=== PATIENT | male | born 1945 | race Caucasian/White ===

== ENCOUNTER → 2017-01-28 | Outpatient (CLI) | payer BC, MEDICARE ==
[~2017-01-28] MED LIST: BARIUM SUSPENSION 2.1% (VANILLA SILQ) 450 ML PO ONE; CATHETER FLUSH 10 ML SYR IV PRN; IOHEXOL 350 MG/ML 100 ML (OMNIPAQUE 350) VIAL IV ONE; NS 100 ML (IVPB) BAG IV ONE
[2017-01-28 10:26] LABS: BLOOD UREA NITROGEN 16 MG/DL (7-18); BUN/CREATININE RATIO 16; CREATININE SERUM 1.01 MG/DL (0.60-1.30); GFR ESTIMATED > 60
--- NOTE | 2017-01-28 11:55 | Diagnostic Imaging Report ---
PROCEDURE: CT abdomen and pelvis with contrast. TECHNIQUE: Multiple contiguous axial images were obtained through the abdomen and pelvis after administration of intravenous contrast. INDICATION: Prostate cancer. There are no prior studies available for comparison. FINDINGS: The prostate gland is enlarged measuring 5.2 x 5.2 CM (normal 5 CM or less). The gland does indent the floor of the bladder, but there is no clear invasion of the bladder. The bladder itself is grossly unremarkable. The seminal vesicles on the right do seem prominent. The left seminal vesicle is not nearly as large as the right seminal vesicle. The possibility that there is involvement of the seminal vesicle on the right by neoplasm should be considered. There is no pelvic mass or adenopathy identified. There are numerous surgical sutures along the inguinal canal on the left and a few surgical sutures along the inguinal canal on the right. There is no sign of herniation of bowel into the inguinal canals. The appendix was not particularly well image but there are no indirect signs of acute appendicitis. On the initial postcontrast series, there is a 1.4 CM area of enhancement in the dome of the right lobe of liver. This finding does not persist on the delayed series and I suspect that this is a benign process such as a hemangioma. Even so, I would recommend that ultrasound be performed to better evaluate this finding. Liver is otherwise unremarkable although the superior most portion of the dome of the liver was not included on the study. The spleen, pancreas, adrenals, gallbladder, kidneys, aorta and inferior vena cava show no sign of an acute abnormality. The stomach is filled with oral contrast and difficult to assess. The lung bases are clear. The bone window show no sign of fracture or destructive lesion. IMPRESSION: 1. The prostate gland is enlarged. The gland indents the floor of the bladder, but does not clearly invade the bladder. The seminal vesicle on the right however is prominent and larger than the seminal vesicle on the left. The possibility that there is involvement of the seminal vesicle on the right by neoplasm should be considered. There is no other evidence for neoplasm and there is no acute abnormality of the abdomen or pelvis. 2. The area of enhancement in the right lobe of liver is most likely due to a small hemangioma. Ultrasound would be recommended for further evaluation. Dictated by: Dictated on workstation # [id number]
--- NOTE | 2017-01-28 14:23 | Diagnostic Imaging Report ---
INDICATION: Prostate cancer with right hip and foot pain. TECHNIQUE: After intravenous administration of 26.4 mCi technetium-99m MDP, whole-body anterior and posterior scintigraphic images are obtained. Coned images were obtained in the lateral projection over the head, neck, and thorax. FINDINGS: There is normal distribution of activity throughout the visualized axial and appendicular skeleton. There is no area of abnormal increased or decreased uptake. There is activity excreted from both kidneys with accumulation in the bladder. Degenerative type uptake is noted in the right foot. IMPRESSION: No scintigraphic evidence of osseous metastatic disease. Dictated by: Dictated on workstation # [id number]
== END ==
LOC: CARD 09:56
PROVIDERS: ATTEND Urology
DX: C61 Malignant neoplasm of prostate (principal)
CPT/HCPCS: 36415; 74177; 78306; 82565; 84520

== ENCOUNTER 2017-02-12 13:54 | Outpatient (RCR) | payer BC, MEDICARE | END 2017-03-16 | disposition home or self-care (01) | LOC: ONC 13:54 | PROVIDERS: ATTEND Radiology Radiation Oncology | DX: C61 Malignant neoplasm of prostate (principal) | CPT/HCPCS: 76873; 99215 ==

== ENCOUNTER 2017-02-21 20:49 | Emergency (ER) | payer BC, MEDICARE ==
[~2017-02-21] VITALS: Ht 177.8 cm; Wt 96.2 kg
[2017-02-21] MEDS ORDERED: TETANUS,DIPTH,PERTUSS P/F (BOOSTRIX) 0.5 ML VIAL IM STA (22:06)
--- NOTE | 2017-02-21 22:12 | ED Integumentary General ---
General Chief Complaint: Laceration Stated Complaint: HEAD INJ Nursing Triage Note: PT STATES HE WAS AT HOME AND RAN INTO A DOOR AT APPROX. 1730 TODAY. PT HAS A LACERATION ON HIS LEFT EYEBROW. 2 TYLENOL WERE TAKEN AT 1830. NO LOC NOTED. PT ONLY COMPLAINS OF A 2/10 REYES AT THIS TIME. History of Present Illness Time seen by provider: 21:40 Initial Comments Evaluation for laceration above left eyebrow. Agent states he was pulling a door open when it hit his foot and then he ran into the door. He denies any loss of consciousness and he is not taking any blood thinners. He is undergoing treatment for prostate cancer with Dr. Herman Timing/Duration: just prior to arrival Location: face Associated Symptoms: denies symptoms Allergies and Home Medications Allergies Coded Allergies: No Known Drug Allergies (Unverified , 02/21/17) Constitutional: no symptoms reported, see HPI Skin: see HPI, other (laceration above left eyebrow) Psychiatric/Neurological: No Symptoms Reported, See HPI Past Gfukaqn-Bhebtm-Opzoim Hx Patient Social History Alcohol Use: Denies Use Recreational Drug Use: No Smoking Status: Never a Smoker 2nd Hand Smoke Exposure: No Recent Foreign Travel: No Contact w/Someone Who Travel: No Recent Infectious Disease Expo: No Recent Hopitalizations: No Physical Abuse: No Sexual Abuse: No Immunizations Up To Date Tetanus Booster (TDap): More than 5yrs Seasonal Allergies Seasonal Allergies: No Surgeries History of Surgeries: Yes (HERNIA REPAIR) Respiratory History of Respiratory Disorde: No Cardiovascular History of Cardiac Disorders: Yes Cardiac Disorders: Hypertension Neurological History of Neurological Disord: No Genitourinary History of Genitourinary Disor: No Gastrointestinal History of Gastrointestinal Di: No Musculoskeletal History of Musculoskeletal Dis: No Endocrine History of Endocrine Disorders: No HEENT History of HEENT Disorders: No Cancer History of Cancer: Yes Cancer: Prostate Psychosocial History of Psychiatric Problem: No Suicide Risk Score: 0 Integumentary History of Skin or Integumenta: No Blood Transfusions History of Blood Disorders: No Reviewed Nursing Assessment Reviewed/Agree w Nursing PMH: Yes Physical Exam Vital Signs Vital Sign - Last 12Hours 02/21/17 21:03 Temp 97.0 Pulse 75 Resp 20 B/P (MAP) 136/77 Pulse Ox 96 O2 Delivery Room Air Capillary Refill : Less Than 3 Seconds General Appearance: WD/WN, no apparent distress HEENT: PERRL/EOMI, normal ENT inspection, TMs normal, pharynx normal Neck: non-tender, full range of motion, supple, normal inspection Cardiovascular: normal peripheral pulses, regular rate, rhythm, no murmur Respiratory: chest non-tender, lungs clear, normal breath sounds Gastrointestinal: normal bowel sounds, non tender, soft Extremities: normal range of motion, non-tender, normal inspection Neurologic/Psychiatric: no motor/sensory deficits, alert, normal mood/affect, oriented x 3 Skin: normal color, warm/dry Skin Problem Location: face (1.5 cm laceration above left eyebrow. No active bleeding.) Lymphatic: no adenopathy Laceration Repair : Wound Location: Face (above left eyebrow) Wound Length (cm): 1.5 Wound's Depth, Shape: superficial Wound Explored: clean Irrigated w/ Saline (ccs): 250 Other Closure Supply: Wound Adhesive (Dermabond used) Sterile Dressing Applied?: No Progress Wound nicely approximated and secured with Dermabond. The patient tolerated the procedure well. Progress/Results/Core Measures Results/Orders My Orders Orders - CONONR GOVEA Dipht,Pertuss(Acell),Tet Adult (Boostrix (02/21/17 22:06) Vital Signs/I&O Vital Sign - Last 12Hours 02/21/17 21:03 Temp 97.0 Pulse 75 Resp 20 B/P (MAP) 136/77 Pulse Ox 96 O2 Delivery Room Air Blood Pressure Mean: 96 Departure Impression Impression: Primary Impression: Laceration of head Qualified Codes: S01.112A - Laceration without foreign body of left eyelid and periocular area, initial encounter Disposition: 01 HOME, SELF-CARE Condition: Stable Departure-Patient Inst. Decision time for Depature: 22:10 Referrals: VAISHNAVI AGUILAR MD (PCP/Family) Primary Care Physician Patient Instructions: Laceration Repair With Glue (DC) Add. Discharge Instructions: Keep wound area clean and dry. Return to emergency department for increased pain, redness, swelling, discolored drainage or odor, confusion, seizure activity or headache, temperature greater than 101, or new problems. Do not remove the Dermabond, allow it to heal up and lift on its own. No petroleum based products near the Dermabond. All discharge instructions reviewed with patient and/or family. Voiced understanding. Copy Copies To 1: VAISHNAVI AGUILAR MD Copies To 2: KRISTY HERMAN MD, AMY ARNP Feb 21, 2017 22:12
[2017-02-21 22:35] VITALS: BP 136/77
== END 2017-02-21 22:35 | disposition home or self-care (01) ==
LOC: EDUNIT# 20:49 → ER 20:51
DX: S01.112A Laceration without foreign body of left eyelid and periocular area, initial encounter (principal); C61 Malignant neoplasm of prostate; I10 Essential (primary) hypertension; W22.09XA Striking against other stationary object, initial encounter
CPT/HCPCS: 90471; 90715; 99284

== ENCOUNTER 2017-04-05 05:32 | Outpatient (CLI) | payer BC, MEDICARE ==
[~2017-04-05] VITALS: Ht 177.8 cm; Wt 96.2 kg
[2017-04-05] MEDS ORDERED: IRBE300T18 PO (09:33)
[2017-04-05] MEDS ORDERED: DICL50TA4 PO (09:33)
[2017-04-05] MEDS ORDERED: TAMS0.4C2 PO (09:33)
[2017-04-05] MEDS ORDERED: SIMV40TA4 PO (09:33)
[2017-04-05] MEDS ORDERED: MULT-1056 PO (09:36)
[2017-04-05] MEDS ORDERED: CHOL10003 PO (09:36)
== END 2017-04-05 09:43 ==
LOC: PREOP 05:32
PROVIDERS: ATTEND Urology
DX: Z01.818 Encounter for other preprocedural examination (principal); C61 Malignant neoplasm of prostate

== ENCOUNTER 2017-04-12 10:14 | Day surgery (SDC) | payer BC, MEDICARE ==
[~2017-04-12] VITALS: Ht 177.8 cm; Wt 96.2 kg
--- NOTE | 2017-04-12 09:26 | Progress Note-Pre Operative ---
Pre-Operative Progress Note H&P Reviewed The H&P was reviewed, patient examined and no changes noted. Date Seen by Provider: Apr 12, 2017 Time Seen by Provider: 11:56 Date H&P Reviewed: Apr 12, 2017 Time H&P Reviewed: 11:56 Pre-Operative Diagnosis: PROSTATE CANCER KRISTY HERMAN MD Apr 12, 2017 9:26 am
[~2017-04-12 10:14] MED LIST changes: -BARIUM SUSPENSION 2.1% (VANILLA SILQ) 450 ML PO ONE; -CATHETER FLUSH 10 ML SYR IV PRN; +CHOL10003 PO; +DICL50TA4 PO; -IOHEXOL 350 MG/ML 100 ML (OMNIPAQUE 350) VIAL IV ONE; +IRBE300T18 PO; +MULT-1056 PO; -NS 100 ML (IVPB) BAG IV ONE; +SIMV40TA4 PO; +TAMS0.4C2 PO
[2017-04-12] MEDS ORDERED: LACTATED RINGERS 1,000 ML IV PRN (10:36)
[2017-04-12 10:55] VITALS: BP 129/80
[2017-04-12] MEDS ORDERED: LEVOFLOXACIN 500 MG/D5W 100 ML (PRE-MIX) IV ONE (11:00)
[2017-04-12] MEDS ORDERED: CATHETER FLUSH 10 ML SYR IV PRN (11:00)
[2017-04-12] MEDS ORDERED: fentaNYL INJECTION 100 MCG/2 ML AMP ONE (11:33)
[2017-04-12] MEDS ORDERED: LIDOCAINE PF 2% 5 ML (XYLOCAINE) VIAL ONE (11:34)
[2017-04-12] MEDS ORDERED: ROCURONIUM 50 MG/5 ML (ZEMURON) VIAL IV ONE (11:34)
[2017-04-12] MEDS ORDERED: LIDOCAINE JELLY 2% (XYLOCAINE) 5 ML TUBE ONE (11:34)
[2017-04-12] MEDS ORDERED: LACTATED RINGERS 0 ML IV ONE (11:34)
[2017-04-12] MEDS ORDERED: proPOfol 200 MG/20 ML (DIPRIVAN) VIAL IV ONE (11:34)
[2017-04-12] MEDS ORDERED: ONDANSETRON 4 MG/2 ML (SDV) Z0FRAN ONE (11:34)
[2017-04-12] MEDS ORDERED: MIDAZOLAM 2 MG/2 ML (VERSED) VIAL ONE (11:34)
[2017-04-12 13:09] VITALS: BP 124/68
[2017-04-12] MEDS ORDERED: ISOFLURANE (FORANE) 15 ML/15 MIN INHALATION ONE (13:38)
--- NOTE | 2017-04-12 13:56 | Progress Note-Post Operative ---
Post-Operative Progess Note Surgeon (s)/Direct Care Counselor (s) Surgeon KRISTY HERMAN MD and WILLIAM GRIDER MD Direct Care Counselor: SAME Pre-Operative Diagnosis PROSTATE CANCER Post-Operative Diagnosis SAME Procedure & Operative Findings Date of Procedure 04/12/17 Procedure Performed/Findings BRACHYTHERAPY AND CYSTOGRAM Anesthesia Type GENERAL Estimated Blood Loss Estimated blood loss (mL): NEGLIGIBLE Specimens/Packing Specimens Removed N/A Packing: N/A KRISTY HERMAN MD Apr 12, 2017 1:56 pm
--- NOTE | 2017-04-12 14:00 | Discharge Inst-Urology ---
Discharge Inst-Urology Discharge Medications New, Converted, or Re-newed RX: RX on Chart Patient Instructions/Follow Up Plan Discharge with [facility] and leg bag day time and large bag night time with instructions Patient to come to office Saturday 9am to MARINE Matos Please make appointment to been seen in office in 2 weeks. Warm sits baths PRN Increase oral fluids for 48 hours and then as needed. Diet and Activity as tolerated. If questions or concerns contact your physician Or seek help at emergency department. KRISTY HERMAN MD Apr 12, 2017 2:00 pm
[2017-04-12] MEDS ORDERED: MEPERIDINE (DEMEROL) INJ 50 MG/ML IVP PRN (14:15)
[2017-04-12] MEDS ORDERED: ONDANSETRON 4 MG/2 ML (SDV) Z0FRAN IVP PRN (14:15)
[2017-04-12] MEDS ORDERED: morphine INJ 10 MG/ML 1ML (SYR OR VIAL) IVP PRN (14:15)
[2017-04-12 15:06] VITALS: BP 128/70
[2017-04-12 15:35] VITALS: BP 119/74
[2017-04-12] MEDS ORDERED: CIPR-225 PO (15:37)
[2017-04-12] MEDS ORDERED: PHEN-640 PO (15:37)
[2017-04-12] MEDS ORDERED: HYDR-3874 PO (15:37)
[2017-04-12] MEDS ORDERED: TAMS0.4C98 PO (15:37)
[2017-04-12] MEDS ORDERED: HYDROcodone/APAP 5 MG/325 MG (LORTAB) TAB PO ONE (16:00)
[2017-04-12 16:05] VITALS: BP 125/67
[2017-04-12 17:09] VITALS: BP 125/67
--- NOTE | 2017-04-12 19:23 | Diagnostic Imaging Report ---
INDICATION: Prostate cancer Intraoperative fluoroscopy used for Dr. Cheung during brachytherapy with metallic seeds in the prostate gland placement. 25 seconds of fluoroscopy time was used in surgery. IMPRESSION: Intraoperative fluoroscopy used during radiation seed implant in the prostate gland as above. Dictated by: Dictated on workstation # [id number]
== END 2017-04-12 17:05 | disposition home or self-care (01) ==
LOC: SDC 10:14
PROVIDERS: ATTEND Urology
DX: C61 Malignant neoplasm of prostate (principal); I10 Essential (primary) hypertension; E78.00 Pure hypercholesterolemia, unspecified; M19.91 Primary osteoarthritis, unspecified site; Z85.828 Personal history of other malignant neoplasm of skin; Z87.891 Personal history of nicotine dependence; Z79.899 Other long term (current) drug therapy
CPT/HCPCS: 76965; 77290; 77318; 77332; 77336; 77470; 77778; 87081

== ENCOUNTER 2017-05-10 13:18 | Emergency (ER) | payer BC, MEDICARE ==
[~2017-05-10] VITALS: Ht 177.8 cm; Wt 96.2 kg
[~2017-05-10 13:18] MED LIST changes: +CIPR-225 PO; +HYDR-3874 PO; +PHEN-640 PO; +TAMS0.4C98 PO
--- NOTE | 2017-05-10 14:50 | ED General ---
General Chief Complaint: General Problems/Pain Stated Complaint: LOWER BACK LEG PAIN Nursing Triage Note: Pt reports having prostate radiation implants placed approx 2 wks ago. Pt reports increased back pain radiating down L since Sunday 05/06. Pt saw PCP for this and was given muscle relaxers. Pt also reports urinary burning and swelling to bilat lower extremities. Pt states ankles were so swollen today and yesterday that he was unable to get his jeans on. Nursing Sepsis Screen: No Definite Risk Source of Information: Patient, Spouse History of Present Illness Time Seen by Provider: 14:35 Initial Comments PT ARRIVES VIA POV FROM HOME C/O LOWER BACK PAIN RADIATING DOWN LEFT LEG--BEGAN ON SATURDAY ON THE RIDE HOME FROM [place] SYMPTOMS WERE MILD ON SATURDAY, AND HAVE BEEN WORSE SINCE SATURDAY HAS SOME TINGLING TO LEFT FOOT SYMPTOMS BETTER IF HE BENDS AT THE WAIST--PAIN 2-3/10, AND MUCH WORSE IF HE STANDS UP STRAIGHT--8/10 NO KNOWN INJURY HAS HAD ONCE BEFORE, A LONG TIME AGO, AND PAIN WAS DOWN RIGHT LEG PT WAS DX WITH PROSTATE CANCER IN JANUARY PT HAD RADIATION SEED IMPLANTS ON 04/12/17 PT IS TO START EXTERNAL BEAM RADIATION THE END OF MAY PT HAS ONGOING ISSUES WITH BURNING ON URINATION, URGENCY, FREQUENCY, ETC, SINCE SEEDS PLACED AND HAS BEEN ON PYRIDIUM, HYOSCYAMINE AND HYDROCODONE. NO LONGER TAKING THE HYOSCYAMINE. HAD NOT BEEN TAKING THE HYDROCODONE FOR A COUPLE OF WEEKS. HOWEVER, HE DID TAKE SOME THIS WEEK WHICH HAS HELPED PCP: UROLOGY: DR. HERMAN Allergies and Home Medications Allergies Coded Allergies: No Known Drug Allergies (Unverified , 02/21/17) Home Medications Cholecalciferol (Vitamin D3) 1,000 Unit Tablet, 1,000 UNIT PO DAILY, (Reported) Ciprofloxacin HCl 500 Mg Tablet, 500 MG PO BID, #14 Prescribed by: DAPHNEY FIGUEROA on 04/12/17 1537 Diclofenac Potassium 50 Mg Tablet, 50 MG PO BID PRN for joint pain, (Reported) Hydrocodone/Acetaminophen 1 Each Tablet, 1 EACH PO Q4H PRN for PAIN, #30 Prescribed by: DAPHNEY FIGUEROA on 04/12/17 1537 Hyoscyamine Sulfate 0.375 Mg Tab.er.12h, (Reported) Irbesartan 300 Mg Tablet, 300 MG PO DAILY, (Reported) Multivit-Min/FA/Lycopen/Lutein 1 Each Tablet, 1 EACH PO DAILY, (Reported) Phenazopyridine HCl 200 Mg Tablet, 1 TAB PO TID PRN for prn, #30 Prescribed by: DAPHNEY FIGUEROA on 04/12/17 1537 Simvastatin 40 Mg Tablet, 40 MG PO DAILY, (Reported) Tamsulosin HCl 0.4 Mg Cap.er.24h, 0.4 MG PO DAILY@1900, (Reported) Tamsulosin HCl 0.4 Mg Cap, 0.4 MG PO DAILY, #30 Prescribed by: DAPHNEY FIGUEROA on 04/12/17 1537 Past Kbuqxbn-Kfmnkf-Zgieet Hx Patient Social History Former Smoker, Quit: Apr 05, 1981 2nd Hand Smoke Exposure: No Recent Foreign Travel: No Contact w/Someone Who Travel: No Recent Infectious Disease Expo: No Recent Hopitalizations: No Immunizations Up To Date Tetanus Booster (TDap): More than 5yrs Date of Pneumonia Vaccine: Apr 05, 2015 Date of Influenza Vaccine: Mar 18, 2017 Seasonal Allergies Seasonal Allergies: No Surgeries History of Surgeries: Yes (HERNIA REPAIR) Surgeries: Adenoidectomy, Tonsillectomy, Vasectomy Respiratory History of Respiratory Disorde: No Cardiovascular History of Cardiac Disorders: Yes Cardiac Disorders: High Cholesterol, Hypertension Neurological History of Neurological Disord: No Reproductive System Hx Reproductive Disorders: No Genitourinary History of Genitourinary Disor: No Genitourinary Disorders: Prostate Problems Gastrointestinal History of Gastrointestinal Di: No Musculoskeletal History of Musculoskeletal Dis: No Musculoskeletal Disorders: Arthritis Endocrine History of Endocrine Disorders: No HEENT History of HEENT Disorders: No Cancer History of Cancer: Yes Cancer: Prostate Psychosocial History of Psychiatric Problem: No Integumentary History of Skin or Integumenta: No Blood Transfusions History of Blood Disorders: No Physical Exam Vital Signs Vital Sign - Last 12Hours 05/10/17 13:29 Temp 97.7 Pulse 68 Resp 18 B/P (MAP) 138/86 Pulse Ox 94 O2 Delivery Room Air Capillary Refill : Less Than 3 Seconds Progress/Results/Core Measures Suspected Sepsis Recent Fever Within 48 Hours: No Infection Criteria Present: Suspected New Infection New/Unexplained Altered Menta: No Sepsis Screen: No Definite Risk Sepsis Diagnosis: SIRS Temperature:97.7 Pulse: 68 Respiratory Rate: 18 Blood Pressure 138 /86 Mean: 103 Results/Orders Lab Results Laboratory Tests Test 05/10/17 14:45 Range/Units Urine Color YELLOW Urine Clarity CLEAR Urine pH 6.5 5-9 Urine Specific [place] 1.010 L 1.016-1.022 Urine Protein NEGATIVE NEGATIVE Urine Glucose (UA) NEGATIVE NEGATIVE Urine Ketones NEGATIVE NEGATIVE Urine Nitrite NEGATIVE NEGATIVE Urine Bilirubin NEGATIVE NEGATIVE Urine Urobilinogen NORMAL NORMAL MG/DL Urine Leukocyte Esterase NEGATIVE NEGATIVE Urine RBC (Auto) NEGATIVE NEGATIVE Urine RBC NONE /HPF Urine WBC RARE /HPF Urine Squamous Epithelial Cells RARE /HPF Urine Renal Epithelial Cells NONE /HPF Urine Crystals NONE /LPF Urine Bacteria NEGATIVE /HPF Urine Casts NONE /LPF Urine Mucus NEGATIVE /LPF Urine Culture Indicated NO My Orders Orders - LORRAINE SANZ DO Ct Thoracic/Lumbar Spine Wo (05/10/17 14:36) Ua Culture If Indicated (05/10/17 14:36) Vital Signs/I&O Vital Sign - Last 12Hours 05/10/17 13:29 Temp 97.7 Pulse 68 Resp 18 B/P (MAP) 138/86 Pulse Ox 94 O2 Delivery Room Air Capillary Refill : Less Than 3 Seconds Blood Pressure Mean: 103 Departure Impression Impression: Primary Impression: Low back pain with left-sided sciatica Additional Impression: Dependent edema Disposition: 01 HOME, SELF-CARE Condition: Stable Departure-Patient Inst. Referrals: VAISHNAVI AGUILAR MD (PCP/Family) Primary Care Physician Patient Instructions: Dependent Edema (DC), Low Back Pain (DC), Sciatica (DC) , Sciatica Exercises Add. Discharge Instructions: CONTINUE YOUR MUSCLE RELAXANT AND HYDROCODONE FINISH STEROIDS PRESCRIBED WHEN STEROIDS ARE COMPLETED, YOU MAY RESUME DICLOFENAC DAILY NO OVER THE COUNTER PAIN MEDICATIONS ELEVATE LEGS MUCH POSSIBLE LOW SODIUM DIET--LESS THAN 2 GRAMS OF SODIUM A DAY FOLLOW UP WITH DR. AGUILAR NEXT WEEK FOR FURTHER CARE All discharge instructions reviewed with patient and/or family. Voiced understanding. LORRAINE SANZ DO May 10, 2017 14:50
[2017-05-10 14:52] LABS: BILIRUBIN,URINE NEGATIVE (NEGATIVE); KETONES,URINE NEGATIVE (NEGATIVE); LEUKOCYTE ESTERASE ,URINE NEGATIVE (NEGATIVE); NITRITE,URINE NEGATIVE (NEGATIVE); PH,URINE 6.5 (5-9); PROTEIN,URINE NEGATIVE (NEGATIVE); UROBILINOGEN,URINE NORMAL (NORMAL)
[2017-05-10] MEDS ORDERED: HYOS0.3710 (14:56)
[2017-05-10 15:02] LABS: SQUAMOUS EPITHELIAL CELL,UR RARE /HPF; WBC,URINE RARE /HPF
--- NOTE | 2017-05-10 15:38 | Diagnostic Imaging Report ---
INDICATION: Back pain, history of prostate cancer and radiation. I have no previous. The study, however, compared with abdominopelvic CT performed 01/28/2017. FINDINGS: No suspicious appearing focal sclerotic lesion was found. There were no findings at this study suggestive of the CT evidence for osteoblastic bony metastases. The thoracolumbar body heights are maintained and no acute appearing endplate irregularity. No thoracic or lumbar fracture or paravertebral hemorrhage is found. There are degenerative changes to the discs, endplates and facets throughout with no levels of severe stenosis. No paravertebral mass, hemorrhage or fluid collection. When correlated with previous abdominopelvic CT, no obvious interval change. IMPRESSION: No findings felt suggestive of CT evidence for spinal metastases. No fracture or malalignment. No severe stenoses. No acute-appearing abnormalities. Dictated by: Dictated on workstation # [id number]
[2017-05-10 16:10] VITALS: BP 162/88
== END 2017-05-10 16:10 | disposition home or self-care (01) ==
LOC: EDUNIT# 13:18 → ER 13:19
DX: M54.42 Lumbago with sciatica, left side (principal); R60.9 Edema, unspecified; E78.00 Pure hypercholesterolemia, unspecified; I10 Essential (primary) hypertension; Z90.89 Acquired absence of other organs; Z98.52 Vasectomy status
CPT/HCPCS: 72128; 72131; 81000; 99282

== ENCOUNTER 2017-07-17 08:59 | Outpatient (RCR) | payer BC, MEDICARE ==
[~2017-07-17 08:59] MED LIST changes: +HYDR-3870 PO; -HYDR-3874 PO; +HYOS0.3710
== END 2017-08-14 | disposition home or self-care (01) ==
LOC: ONC 08:59
PROVIDERS: ATTEND Radiology Radiation Oncology
DX: Z51.0 Encounter for antineoplastic radiation therapy (principal); C61 Malignant neoplasm of prostate
CPT/HCPCS: 77290; 77295; 77300; 77301; 77334; 77336; 77338; 77385

== ENCOUNTER 2017-09-03 14:50 | Outpatient (RCR) | payer BC, MEDICARE | END 2017-12-02 | disposition home or self-care (01) | LOC: ONC 14:50 | PROVIDERS: ATTEND Radiology Radiation Oncology | DX: C61 Malignant neoplasm of prostate (principal) | CPT/HCPCS: 99213 ==

== ENCOUNTER 2017-12-17 09:52 | Emergency (ER) | payer BC, MEDICARE ==
[~2017-12-17] VITALS: Ht 180.3 cm; Wt 98.0 kg
[2017-12-17] MEDS ORDERED: TIZA4TAB3 (10:08)
[2017-12-17] MEDS ORDERED: KETOROLAC 60 MG/2 ML VIAL IM STA (10:21)
[2017-12-17] MEDS ORDERED: DIAZEPAM INJ 10 MG/2 ML (VALIUM) SYR IV ONE (10:30)
[2017-12-17] MEDS ORDERED: predniSONE 20 MG TAB PO ONE (10:30)
--- NOTE | 2017-12-17 10:37 | ED Neck-Back Pain/Injury ---
General Chief Complaint: Head/Cervical Problems Stated Complaint: NECK STIFF AND PAINFUL ON BOTH SIDES Nursing Triage Note: C/O NECK PAIN AND STIFFINNES FOR 4 DAYS. NO INJURY. WAS PUT ON MUSCLE REXLANT BY DR AGUILAR REPORTS NOT HELPING. Nursing Sepsis Screen: No Definite Risk Source of Information: Patient Exam Limitations: No Limitations History of Present Illness Date Seen by Provider: Dec 17, 2017 Time Seen by Provider: 10:00 Initial Comments Here with report of bilateral neck pain and stiffness for the last 4 days. Doesn't know what incited this event but states it may be after driving quite a bit. Pain started on the right side and then moved to the left side. More on the right than left now. He is only able to sleep on the left side but this causes left shoulder pain. Denies weakness or numbness of the arms. States he is tired along the top of the shoulders to the neck on both sides. He has been on muscle relaxers and Naprosyn and that is helping a little bit but things are not getting better so presented for further evaluation. His doctor is currently out of town on vacation. Timing/Duration: 4-5 Days Severity: Moderate Pain/Injury Location: Neck Modifying Factors: Improves With Immobilization; Worse With Movement; Improves With Pain Medication Associated Symptoms: muscle spasms; No fever, No weakness, No sensory/motor loss, No loss of bladder control, No loss of bowel control Allergies and Home Medications Allergies Coded Allergies: No Known Drug Allergies (Unverified , 02/21/17) Home Medications Cholecalciferol (Vitamin D3) 1,000 Unit Tablet, 1,000 UNIT PO DAILY, (Reported) Diclofenac Potassium 50 Mg Tablet, 50 MG PO BID PRN for joint pain, (Reported) Irbesartan 300 Mg Tablet, 300 MG PO DAILY, (Reported) Multivit-Min/FA/Lycopen/Lutein 1 Each Tablet, 1 EACH PO DAILY, (Reported) Simvastatin 40 Mg Tablet, 40 MG PO DAILY, (Reported) Tamsulosin HCl 0.4 Mg Cap.er.24h, 0.4 MG PO DAILY@1900, (Reported) Tamsulosin HCl 0.4 Mg Cap, 0.4 MG PO DAILY Prescribed by: DAPHNEY FIGUEROA on 04/12/17 [id number] Patient Home Medication List Home Medication List Reviewed: Yes Constitutional: see HPI; No chills, No fever Respiratory: no symptoms reported Cardiovascular: no symptoms reported Gastrointestinal: No nausea, No vomiting Musculoskeletal: see HPI, muscle pain, muscle stiffness; No muscle weakness; neck pain Skin: no symptoms reported Psychiatric/Neurological: Denies Numbness, Denies Paresthesia, Denies Weakness Past Injbjon-Dpruon-Qwgovt Hx Past Med/Social Hx: Reviewed Nursing Past Med/Soc Hx Patient Social History Alcohol Use: Denies Use Recreational Drug Use: No Smoking Status: Never a Smoker Former Smoker, Quit: Apr 05, 1981 2nd Hand Smoke Exposure: No Recent Foreign Travel: No Contact w/Someone Who Travel: No Recent Infectious Disease Expo: No Recent Hopitalizations: No Immunizations Up To Date Tetanus Booster (TDap): More than 5yrs Date of Pneumonia Vaccine: Apr 05, 2015 Date of Influenza Vaccine: Mar 18, 2017 Seasonal Allergies Seasonal Allergies: No Past Medical History Surgeries: Yes Adenoidectomy, Cardiac, Tonsillectomy, Vasectomy Respiratory: No Cardiac: Yes High Cholesterol, Hypertension Neurological: No Reproductive Disorders: No Genitourinary: Yes (PROSTATE CANCER DX 01/2017) Prostate Problems Gastrointestinal: Yes (HERNIA REPAIRS) Abdominal Hernia Musculoskeletal: Yes Arthritis Endocrine: No HEENT: No Cancer: Yes Prostate, Skin Did You Recieve Any Treatments: Yes Psychosocial: No Integumentary: Yes (SKIN CANCER) Blood Disorders: No Family Medical History Reviewed Nursing Family Hx Physical Exam Vital Signs Vital Signs - First Documented 12/17/17 09:57 Temp 97.1 Pulse 72 Resp 18 B/P (MAP) 141/97 (112) O2 Delivery Room Air Capillary Refill : Less Than 3 Seconds General Appearance: WD/WN, Mild Distress (neck pain) Neck: Limited Range of Motion, Tender Lateral (bilateral); No Tender Midline Cardiovascular: Regular Rate, Rhythm, No Murmur Respiratory: Lungs Clear, Normal Breath Sounds Back: Normal Inspection, No CVA Tenderness, No Vertebral Tenderness Extremity: Normal Inspection, Normal Range of Motion, Non Tender Neurologic/Psychiatric: Alert, Oriented x3; No Motor Weakness, No Sensory Deficit Skin: Normal Color, Warm/Dry Progress/Results/Core Measures Results/Orders My Orders Orders - BELEN LINDO MD Ketorolac Injection (Toradol Injection) (12/17/17 10:21) Ct Cervical Spine Wo (12/17/17 10:21) Diazepam Injection (Valium Injection) (12/17/17 10:30) Prednisone Tablet (Deltasone Tablet) (12/17/17 10:30) Morphine Injection (Morphine Injection (12/17/17 11:56) Medications Given in ED Current Medications Medications Dose Ordered Sig/Grant Route Start Time Stop Time Status Last Admin Dose Admin Diazepam 5 mg ONCE ONCE IV 12/17/17 10:30 12/17/17 10:31 DC 12/17/17 10:31 5 MG Prednisone 40 mg ONCE ONCE PO 12/17/17 10:30 12/17/17 10:31 DC 12/17/17 10:33 40 MG Vital Signs/I&O 12/17/17 09:57 Temp 97.1 Pulse 72 Resp 18 B/P (MAP) 141/97 (112) O2 Delivery Room Air Blood Pressure Mean: 112 Progress Progress Note : Progress Note Seen and evaluated. CT C-spine ordered. Valium 5 mg IM and Toradol 60 mg IM ordered. Prednisone 40 mg by mouth ordered. Monitor patient. 1154: Patient is doing a little better but still has moderate amount of pain. Morphine [address] results. 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 1315: Much improved. CT results discussed. We will write small prescription for hydrocodone to help at night time. We did discuss at length about hydrocodone and narcotic use and patient understands. He did have difficulty with previous hydrocodone after being on it for a while and does not want to go through withdrawal again or have problems. We will limit prescription to 12 tablets. Discharged home with return precautions. Patient and family verbalize understanding instructions and agreement with plan. Diagnostic Imaging Diagonstic Imaging: CT Plain Films/CT/US/NM/MRI: c-spine Comments VIA [facility] [place], [place] NAME: IVETT [facility] REC#: [id number] PT STATUS: REG ER : 1945 PHYSICIAN: BELEN LINDO MD ADMIT DATE: 12/17/17/ER Draft Date of Exam:12/17/17 CT CERVICAL SPINE WO PROCEDURE: CT cervical spine without contrast. TECHNIQUE: Multiple contiguous axial images were obtained through the cervical spine without the use of intravenous contrast. Sagittal and coronal reformations were then performed. INDICATION: Neck pain, stiffness, shoulder pain. No previous study, however correlated with relevant overlapped images of the cervical spine included in the [id number] at thoracic CT of 05/10/2017. FINDINGS: A reversal of lordosis at the mid to lower cervical levels increased in magnitude from prior. No jose listhesis. Cervical body heights are maintained. There is multilevel degenerative disc space narrowing, endplate sclerosis, osteophytes, facet arthrosis and uncovertebral joint spurring and hypertrophy. The disease most advanced at the C6-C7 level where there is a resultant moderate canal and at least moderate right and moderate to severe left-sided foraminal stenoses. More mild canal stenosis at the T2-3, 3-4 and 4-5 as well as 5-6 levels present. Foraminal stenosis appears most severe on the right at the C3-4 on a bony basis. No fracture or bony destruction, no paravertebral hemorrhage. There is mild atherosclerotic vascular calcifications. The skull base appeared intact. IMPRESSION: Spondylosis, facet arthrosis with reversal of lordosis but no jose listhesis, fracture or acute bony pathology. Canal stenosis greatest at C6-C7 with multilevel foraminal encroachments most severe on the right at the C3-C4 level. An acute appearing bony abnormality is not identified. Dictated on workstation # [id number] Dict: 12/17/17 1145 Trans: 12/17/17 1157 [facility] [id number] Interpreted by: FREEDOM HENNING Electronically signed by: Departure Impression Primary Impression: Neck muscle strain Qualified Codes: S16.1XXA - Strain of muscle, fascia and tendon at neck level , initial encounter Additional Impression: Degenerative joint disease of cervical spine Qualified Codes: M47.812 - Spondylosis without myelopathy or radiculopathy, cervical region Disposition: 01 HOME, SELF-CARE Condition: Improved Departure-Patient Inst. Decision time for Depature: 13:21 Referrals: VAISHNAVI AGUILAR MD (PCP/Family) Primary Care Physician Patient Instructions: Cervical Muscle Strain (DC), Radiculopathy (DC) Add. Discharge Instructions: All discharge instructions reviewed with patient and/or family. Voiced understanding. Drink plenty of fluids. You may take the cuko-wiw-tntuarj Aleve one or 2 tablets every 12 hours as needed for pain. Take other medications as directed. You may use icy hot with lidocaine or similar over area of concern to reduce muscle spasm and tension per package directions. Follow up with your Dr. next week for recheck. You should not perform activities at increased tension on her shoulders or arms for the next week as this may cause return of spasms. Return for worse pain, weakness, numbness, breathing problems or other concerns as needed. Scripts Tizanidine HCl (Tizanidine HCl) 4 Mg Tablet 4 MG PO Q8H PRN for SPASMS, #15 TAB 0 Refills Prov: BELEN LINDO MD 12/17/17 Prednisone (Prednisone) 20 Mg Tab 40 MG PO DAILY, #12 TAB 0 Refills Prov: BELEN LINDO MD 12/17/17 Hydrocodone Bit/Acetaminophen (Hydrocodone/Acetaminophen 5/325mg Tablet) 1 Tab Tab 1-2 EACH PO Q8H PRN for PAIN-MODERATE, #12 TAB 0 Refills Prov: BELEN LINDO MD 12/17/17 Copy Copies To 1: VAISHNAVI AGUILAR MD, TIMOTHY D MD Dec 17, 2017 10:37
[2017-12-17] MEDS ORDERED: morphine INJ 10 MG/ML 1ML (SYR OR VIAL) IM STA (11:56)
--- NOTE | 2017-12-17 11:57 | Diagnostic Imaging Report ---
PROCEDURE: CT cervical spine without contrast. TECHNIQUE: Multiple contiguous axial images were obtained through the cervical spine without the use of intravenous contrast. Sagittal and coronal reformations were then performed. INDICATION: Neck pain, stiffness, shoulder pain. No previous study, however correlated with relevant overlapped images of the cervical spine included in the nzeiw-fy-evou at thoracic CT of 05/10/2017. FINDINGS: A reversal of lordosis at the mid to lower cervical levels increased in magnitude from prior. No jose listhesis. Cervical body heights are maintained. There is multilevel degenerative disc space narrowing, endplate sclerosis, osteophytes, facet arthrosis and uncovertebral joint spurring and hypertrophy. The disease most advanced at the C6-C7 level where there is a resultant moderate canal and at least moderate right and moderate to severe left-sided foraminal stenoses. More mild canal stenosis at the T2-3, 3-4 and 4-5 as well as 5-6 levels present. Foraminal stenosis appears most severe on the right at the C3-4 on a bony basis. No fracture or bony destruction, no paravertebral hemorrhage. There is mild atherosclerotic vascular calcifications. The skull base appeared intact. IMPRESSION: Spondylosis, facet arthrosis with reversal of lordosis but no jose listhesis, fracture or acute bony pathology. Canal stenosis greatest at C6-C7 with multilevel foraminal encroachments most severe on the right at the C3-C4 level. An acute appearing bony abnormality is not identified. Dictated by: Dictated on workstation # [id number]
[2017-12-17] MEDS ORDERED: TIZA4TAB3 PO (13:25)
[2017-12-17] MEDS ORDERED: PRD20T PO (13:25)
[2017-12-17] MEDS ORDERED: ACHD5005 PO (13:25)
[2017-12-17 13:28] VITALS: BP 141/97
== END 2017-12-17 13:37 | disposition home or self-care (01) ==
LOC: EDUNIT# 09:52 → ER 09:55
DX: S16.1XXA Strain of muscle, fascia and tendon at neck level, initial encounter (principal); M47.812 Spondylosis without myelopathy or radiculopathy, cervical region; E78.00 Pure hypercholesterolemia, unspecified; I10 Essential (primary) hypertension; Z85.828 Personal history of other malignant neoplasm of skin; Z87.19 Personal history of other diseases of the digestive system; Z85.46 Personal history of malignant neoplasm of prostate; Z87.891 Personal history of nicotine dependence; Z90.89 Acquired absence of other organs; Z98.52 Vasectomy status; X58.XXXA Exposure to other specified factors, initial encounter
CPT/HCPCS: 72125; 96372

== ENCOUNTER 2018-04-16 10:15 | Outpatient (CLI) | payer BC ==
[~2018-04-16] VITALS: Ht 180.3 cm; Wt 98.0 kg
[~2018-04-16 10:15] MED LIST changes: +ACHD5005 PO; +PRD20T PO; +TIZA4TAB3; +TIZA4TAB3 PO
[2018-04-16] MEDS ORDERED: MULT-178 PO (10:28)
== END 2018-04-16 10:46 ==
LOC: PREOP 10:15
PROVIDERS: ATTEND Internal Medicine
DX: Z01.818 Encounter for other preprocedural examination (principal)

== ENCOUNTER 2018-04-18 07:07 | Day surgery (SDC) | payer BC ==
--- NOTE | 2018-04-01 12:23 | HISTORY AND PHYSICAL ---
DATE OF SERVICE: COLONOSCOPY H AND P HISTORY OF PRESENT ILLNESS: The patient is a 72-year-old white male seen in the office on 03/31 reporting a two-day history of intermittent bright red blood per rectum with increasing mucus. He denied associated pain, tenderness or constipation. He has had increased number of bowel movements since finishing radiation therapy, but will increase in urgency since July of this year. He underwent one other colonoscopy 11 years ago that was unremarkable. He underwent radiation therapy for prostate cancer as well as brachytherapy and has had as I recall nearly unmeasurable PSAs since finishing therapy. Reports that he feels well otherwise and has had no night sweats, chills or fever. PAST MEDICAL HISTORY: Significant for hypertension. PHYSICAL EXAMINATION: GENERAL: Revealed a well-appearing white male in no acute distress. VITAL SIGNS: Blood pressure was 130/80, weight was up 10 pounds since his last office weight 6 months ago. HEENT: Unremarkable. Sclerae are nonicteric. CHEST: Clear. CARDIOVASCULAR: Regular rate and rhythm without murmur, S3 or S4. ABDOMEN: Soft, supple without mass, organomegaly or tenderness. SKIN: Coloration was normal. There is no evidence for pallor. ASSESSMENT AND PLAN: The patient was set up for diagnostic colonoscopy for evaluation of rectal bleeding with strong likelihood of possible radiation proctitis, but underlying neoplasia needs to be excluded as well. Prep instructions were given and questions were answered. Job ID: [id number] DocumentID: [id number] Dictated Date: 04/01/2018 12:06:13 Spiral Weaver Date: 04/01/2018 12:22:51 Dictated By: VAISHNAVI AGUILAR MD
[~2018-04-18] VITALS: Ht 180.3 cm; Wt 98.0 kg
[~2018-04-18 07:07] MED LIST changes: +MULT-178 PO
[2018-04-18] MEDS ORDERED: D5 LR IV SOLUTION 1,000 ML IV ONE (07:15)
[2018-04-18] MEDS ORDERED: MIDAZOLAM 2 MG/2 ML (VERSED) VIAL ONE ×2 (07:32→08:30)
[2018-04-18] MEDS ORDERED: LIDOCAINE JELLY 2% 6 ML SYRINGE ONE (07:33)
[2018-04-18] MEDS ORDERED: fentaNYL INJECTION 100 MCG/2 ML AMP ONE (07:33)
[2018-04-18] MEDS ORDERED: D5 LR IV SOLUTION 1,000 ML IV STA (07:48)
[2018-04-18 07:52] VITALS: BP 135/84
[2018-04-18] MEDS ORDERED: fentaNYL INJECTION 100 MCG/2 ML AMP IVP ONE (08:00)
[2018-04-18] MEDS ORDERED: LIDOCAINE JELLY 2% 6 ML SYRINGE MM PRN (08:00)
[2018-04-18] MEDS ORDERED: MIDAZOLAM 2 MG/2 ML (VERSED) VIAL IVP ONE (08:00)
--- NOTE | 2018-04-18 08:01 | Pre-Op Note & Conscious Sedat ---
Pre-Operative Progress Note H&P Reviewed The H&P was reviewed, patient examined and no changes noted. Date H&P Reviewed: Apr 18, 2018 Time H&P Reviewed: 08:00 Conscious Sedation Pre-Proced ASA Score 2 For ASA 3 and 4: Consider anesthesia and medical clearance. Also, for patients with a history of failed moderate sedation consider anesthesia. Airway Lungs Heart ASA score ASA 1: a normal healthy patient ASA 2: a patient with a mild systemic disease (mid diabetes, controlled hypertension, obesity ASA 3: a patient with a severe systemic disease that limits activity (angina , COPD, prior Myocardial infarction) ASA 4: a patient with an incapacitating disease that is a constant threat to life (CHF, renal failure) ASA 5: a moribund patient not expected to survive 24 hrs. (ruptured aneurysm) ASA 6: a declared brain patient whose organs are being harvested. For emergent operations, add the letter E after the classification Mallampati Classification Grade 2 Sedation Plan Analgesia, Amnesia, Plan communicated to team members, Discussed options with patient/fam, Discussed risks with patient/fam The patient is an appropriate candidate to undergo the planned procedure, sedation, and anesthesia. The patient immediately re-assessed prior to indication. VAISHNAVI AGUILAR MD Apr 18, 2018 08:01
[2018-04-18 09:03] VITALS: BP 135/84
[2018-04-18 09:05] VITALS: BP 135/67
[2018-04-18 09:35] VITALS: BP 117/65
[2018-04-18 10:00] VITALS: BP 117/65
--- NOTE | 2018-04-18 21:04 | OPERATIVE REPORT ---
DATE OF SERVICE: COLONOSCOPY SUMMARY INDICATION FOR THE PROCEDURE: Diagnostic colonoscopy for evaluation of intermittent bright red blood per rectum. The patient was placed in the left lateral decubitus position. Prior to undergoing colonoscopy, digital rectal evaluation was performed. Anal sphincter tone was normal and the perianal reflex was intact. While the prostate was small in size, the right lobe was not palpable. Left revealed no nodularity. History of external beam radiation therapy as well as brachytherapy. No other abnormalities, no additional inspection of the anal canal or distal rectal vault. The colonoscope was inserted in the rectum under direct visualization and advanced to the cecum. The cecum was identified by identification of the ileocecal valve and cecal strap. Photographic documentation was obtained. Careful inspection was made as the colonoscope was withdrawn. FINDINGS: There is no evidence for internal or external hemorrhoids. In the distal rectum, there were changes consistent with chronic radiation injury response with friability but with little erythema and telangiectatic blood vessels and upon withdrawal, there was a small amount of blood likely scope induced. Photograph was obtained. No other rectal abnormalities were noted. Several small to medium size sigmoid diverticulum were present confined to the sigmoid colon, which is otherwise unremarkable. The descending colon, splenic flexure were unremarkable. Present in the mid transverse colon was a sessile adenomatous appearing polyp with no evidence for ulceration or nodularity. A photograph was obtained that was biopsied and cauterized in 2 locations. It was angular in shape roughly 3 to 4 mm x 12 mm in size. There was a small amount of bleeding post-cauterization. Remainder of the transverse colon, hepatic flexure, ascending colon and cecum were unremarkable. ASSESSMENT: 1. 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 I discussed the fact that it would persist intermittently and the most important thing was avoiding constipation and straining , which he denies having issues with. Also advised attempts not to strain when having a bowel movement. As long as it remains small volume did not advise attempts at cauterization as it is quite extensive. 2. Adenomatous appearing polyp removed from the transverse colon with benign features. Await histopathology report with future surveillance recommendations pending histopathology. 3. Mild diverticular disease confined to the sigmoid colon without evidence for diverticulitis. Job ID: [id number] DocumentID: [id number] Dictated Date: 04/18/2018 11:27:11 Medical Information Specialist Date: 04/18/2018 21:03:59 Dictated By: VAISHNAVI AGUILAR MD MTDD
== END 2018-04-18 10:00 | disposition home or self-care (01) ==
LOC: ENDO 07:07
PROVIDERS: ATTEND Internal Medicine
DX: K55.21 Angiodysplasia of colon with hemorrhage (principal); K62.7 Radiation proctitis; D12.3 Benign neoplasm of transverse colon; K57.30 Diverticulosis of large intestine without perforation or abscess without bleeding; I10 Essential (primary) hypertension; Z85.46 Personal history of malignant neoplasm of prostate; Z92.3 Personal history of irradiation
CPT/HCPCS: 88305

== ENCOUNTER 2019-03-03 09:35 | Emergency (ER) | payer BC ==
[~2019-03-03] VITALS: Ht 157.4 cm; Wt 99.0 kg
[~2019-03-03 09:35] MED LIST changes: -TIZA4TAB3; -TIZA4TAB3 PO; +TIZA4TAB4; +TIZA4TAB4 PO
[2019-03-03] MEDS ORDERED: KETOROLAC 30 MG/ML VIAL IVP STA (11:16)
[2019-03-03] MEDS ORDERED: NS IV 1000 ML 1,000 ML IV ONE (11:16)
--- NOTE | 2019-03-03 11:38 | ED Abdominal Pain ---
General Chief Complaint: Abdominal/GI Problems Stated Complaint: LOWER BACK/SIDE PAIN Nursing Triage Note: AMB TO ROOM REPORTS HE HAS HAD L FLANK PAIN FOR 3 DAYS. Sepsis Screen: No Definite Risk Source of Information: Patient Exam Limitations: No Limitations ([employer]ERSON F[employer] MED STUDENT) History of Present Illness Date Seen by Provider: Mar 03, 2019 Time Seen by Provider: 11:05 Initial Comments The patient is a WD/WN 73 y/o male who is here with a chief complaint of left lower abdominal pain. The patient reports that the pain is 8/10, sharp in his left lower abdomen that radiates to his back. He was initially taking ibuprofen which was giving some relief but is now not helping. He states that Saturday he had an episode of bloody stool but no repeat episodes. He also admits to d ifficulty with urination which he states is chronic. The patient has a history of hernia repair and prostate cancer with radiation therapy. 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) Timing/Duration: 3-4 Days, Changing Over Time, Getting Worse Severity/Quality: Moderate, Aching Location: LLQ, Flank (left) Radiation: Back Modifying Factors: Improves With Analgesics Associated Symptoms: No Fever/Chills; Nausea/Vomiting, Other (felt warm 2 nights ago but no fever currently) (BELEN LINDO MD) Allergies and Home Medications Allergies Coded Allergies: No Known Drug Allergies (Unverified , 04/16/18) Home Medications Cholecalciferol (Vitamin D3) 1,000 Unit Tablet, 1,000 UNIT PO DAILY, (Reported) Irbesartan 300 Mg Tablet, 300 MG PO DAILY, (Reported) Multivit-Min/FA/Lycopen/Lutein 1 Each Tablet, 1 EACH PO DAILY, (Reported) Multivitamin 1 Each Tablet, 1 EACH PO DAILY, (Reported) Simvastatin 40 Mg Tablet, 40 MG PO DAILY, (Reported) Tamsulosin HCl 0.4 Mg Cap, 0.4 MG PO DAILY Prescribed by: DAPHNEY FIGUEROA on 04/12/17 6470 Patient Home Medication List Home Medication List Reviewed: Yes (BELEN LINDO MD) Review of Systems Review of Systems Constitutional: No chills; fever EENTM: No Blurred Vision, No Double Vision Respiratory: Denies Cough, Denies Shortness of Air Cardiovascular: Denies Chest Pain, Denies Palpitations Gastrointestinal: Abdominal Pain, Blood Streaked Stools, Nausea, Poor Appetite Musculoskeletal: back pain; No joint pain (ANDERSON F[employer] STUDENT) Constitutional: see HPI; No weakness Gastrointestinal: Abdominal Pain, Blood Streaked Stools (chronic) (BELEN LINDO MD) All Other Systems Reviewed Negative Unless Noted: Yes (BELEN LINDO MD) Past Maetswe-Ktprod-Chgsjx Hx Past Med/Social Hx: Reviewed Nursing Past Med/Soc Hx (BELEN LINDO MD) Patient Social History Alcohol Use: Denies Use Recreational Drug Use: No Former Smoker, Quit: Apr 05, 1981 2nd Hand Smoke Exposure: No Recent Foreign Travel: No Contact w/Someone Who Travel: No Recent Infectious Disease Expo: No Recent Hopitalizations: No (ANDERSON F[employer] STUDENT) Immunizations Up To Date Tetanus Booster (TDap): More than 5yrs Date of Pneumonia Vaccine: Apr 05, 2015 Date of Influenza Vaccine: Mar 24, 2018 ([employer]ERSON [employer] STUDENT) Seasonal Allergies Seasonal Allergies: No (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) Past Medical History Surgeries: Yes (LEFT INGUINAL HERNIA X2, R INGUINAL HERNIA) Adenoidectomy, Tonsillectomy, Vasectomy Respiratory: No Cardiac: Yes High Cholesterol, Hypertension Neurological: No Reproductive Disorders: No Sexually Transmitted Disease: No HIV/AIDS: No Genitourinary: Yes (PROSTATE CANCER DX 01/2017) Prostate Problems Gastrointestinal: Yes (HERNIA REPAIRS) Abdominal Hernia Musculoskeletal: Yes Arthritis Endocrine: No HEENT: No Loss of Vision: Bilateral Hearing Impairment: Denies Cancer: Yes Prostate, Skin Did You Recieve Any Treatments: Yes What Type of Treatment Did You: Radiation Psychosocial: No Integumentary: Yes (SKIN CANCER) Blood Disorders: No Adverse Reaction/Blood Tranf: No (AND[employer] STUDENT) Family Medical History Reviewed Nursing Family Hx (BELEN LINDO MD) Physical Exam Vital Signs Vital Signs - First Documented 03/03/19 09:58 Temp 36.9 Pulse 75 Resp 18 B/P (MAP) 162/106 (124) Pulse Ox 98 O2 Delivery Room Air (BELEN LINDO MD) Vital Signs Capillary Refill : Less Than 3 Seconds ([employer] F[employer] MED STUDENT) Height/Weight/BMI Height: 5'11.00" Weight: 216lbs. 0.0oz. 97.466563te; 39.00 BMI Method:Stated General Appearance: WD/WN, no apparent distress Respiratory: chest non-tender, lungs clear, normal breath sounds Cardiovascular: regular rate, rhythm, no edema, no murmur Gastrointestinal: normal bowel sounds, tenderness Neurologic/Psychiatric: alert, normal mood/affect, oriented x 3 Skin: normal color, warm/dry ([employer] F[employer] MED STUDENT) General Appearance: WD/WN, no apparent distress Respiratory: lungs clear, normal breath sounds Cardiovascular: regular rate, rhythm, no edema Gastrointestinal: normal bowel sounds, tenderness Extremities: non-tender, normal inspection Back: normal inspection, no CVA tenderness, no vertebral tenderness Neurologic/Psychiatric: alert, oriented x 3 Skin: normal color, warm/dry (BELEN LINDO MD) Progress/Results/Core Measures Results/Orders Lab Results Laboratory Tests Test 03/03/19 11:30 03/03/19 11:40 Range/Units Urine Color YELLOW Urine Clarity CLEAR Urine pH 5 5-9 Urine Specific [place] 1.015 L 1.016-1.022 Urine Protein NEGATIVE NEGATIVE Urine Glucose (UA) NEGATIVE NEGATIVE Urine Ketones NEGATIVE NEGATIVE Urine Nitrite NEGATIVE NEGATIVE Urine Bilirubin NEGATIVE NEGATIVE Urine Urobilinogen NORMAL NORMAL MG/DL Urine Leukocyte Esterase NEGATIVE NEGATIVE Urine RBC (Auto) NEGATIVE NEGATIVE Urine RBC NONE /HPF Urine WBC NONE /HPF Urine Squamous Epithelial Cells NONE /HPF Urine Crystals NONE /LPF Urine Bacteria NEGATIVE /HPF Urine Casts NONE /LPF Urine Mucus NEGATIVE /LPF Urine Culture Indicated NO White Blood Count 7.6 4.3-11.0 10^3/uL Red Blood Count 4.39 4.35-5.85 10^6/uL Hemoglobin 13.5 13.3-17.7 G/DL Hematocrit 39 L 40-54 % Mean Corpuscular Volume 88 80-99 FL Mean Corpuscular Hemoglobin 31 25-34 PG Mean Corpuscular Hemoglobin Concent 35 32-36 G/DL Red Cell Distribution Width 12.7 10.0-14.5 % Platelet Count 199 130-400 10^3/uL Mean Platelet Volume 9.7 7.4-10.4 FL Neutrophils (%) (Auto) 80 H 42-75 % Lymphocytes (%) (Auto) 10 L 12-44 % Monocytes (%) (Auto) 8 0-12 % Eosinophils (%) (Auto) 3 0-10 % Basophils (%) (Auto) 0 0-10 % Neutrophils # (Auto) 6.1 1.8-7.8 X 10^3 Lymphocytes # (Auto) 0.7 L 1.0-4.0 X 10^3 Monocytes # (Auto) 0.6 0.0-1.0 X 10^3 Eosinophils # (Auto) 0.2 0.0-0.3 10^3/uL Basophils # (Auto) 0.0 0.0-0.1 10^3/uL Sodium Level 138 135-145 MMOL/L Potassium Level 4.5 3.6-5.0 MMOL/L Chloride Level 106 98-107 MMOL/L Carbon Dioxide Level 25 21-32 MMOL/L Anion Gap 7 5-14 MMOL/L Blood Urea Nitrogen 25 H 7-18 MG/DL Creatinine 1.78 H 0.60-1.30 MG/DL Estimat Glomerular Filtration Rate 37 BUN/Creatinine Ratio 14 Glucose Level 93 70-105 MG/DL Calcium Level 9.8 8.5-10.1 MG/DL Corrected Calcium 9.7 8.5-10.1 MG/DL Total Bilirubin 0.9 0.1-1.0 MG/DL Aspartate Amino Transf (AST/SGOT) 15 5-34 U/L Alanine Aminotransferase (ALT/SGPT) 16 0-55 U/L Alkaline Phosphatase 97 40-136 U/L C-Reactive Protein High Sensitivity 0.56 H 0.00-0.50 MG/DL Total Protein 7.0 6.4-8.2 GM/DL Albumin 4.1 3.2-4.5 GM/DL (BELEN LINDO MD) My Orders Orders - BELEN LINDO MD Cbc With Automated Diff (03/03/19 11:16) Comprehensive Metabolic Panel (03/03/19 11:16) Hs C Reactive Protein (03/03/19 11:16) Ua Culture If Indicated (03/03/19 11:16) Ed Iv/Invasive Line Start (03/03/19 11:16) Ns Iv 1000 Ml (Sodium Chloride 0.9%) (03/03/19 11:16) Ketorolac Injection (Toradol Injection) (03/03/19 11:16) Ct Abdomen/Pelvis Wo (03/03/19 12:20) Psa Screen (03/03/19 14:52) Hydrocodone/Apap 5/325 Tablet (Lortab 5 (03/03/19 15:15) (BELEN LINDO MD) Medications Given in ED Current Medications Medications Dose Ordered Sig/Grant Route Start Time Stop Time Status Last Admin Dose Admin Sodium Chloride 1,000 ml @ 0 mls/hr Q0M ONCE IV 03/03/19 11:16 03/03/19 11:18 DC 03/03/19 11:39 1,000 MLS/HR (BELEN LINDO MD) Vital Signs/I&O 03/03/19 09:58 Temp 36.9 Pulse 75 Resp 18 B/P (MAP) 162/106 (124) Pulse Ox 98 O2 Delivery Room Air (BELEN LINDO MD) Blood Pressure Mean: 124 Progress Progress Note : Time: 11:20 Progress Note The patient is resting comfortably in the exam room. Initial analysis will consist of CBC, CMP, CRP, and urinalysis. He will be given IV fluids and toradol for pain control. (AND[employer] FARM[employer] MED STUDENT) Progress Note : Progress Note I have seen and evaluated the patient and agree with above except as indicated. I have directed the plan of care. Patient is here with left-sided abdominal pain that has been intermittent over the last couple days but worse overnight. Does have history of prostate cancer. IV, labs and UA ordered. CT abdomen and pelvis ordered without contrast due to findings of acute renal insufficiency. Toradol 15 mg IV ordered. Normal saline 1 L bolus. Monitor patient. 1500: CT results noted. Concerning for soft tissue density and ureteral obstruction. I did discuss the case with Dr. Herman. I reviewed the case and current findings. He would like to see the patient in office tomorrow at 4:15 PM. This was discussed with the patient and his . They will follow-up with him tomorrow. Hydrocodone 5/325 one tab by mouth given now. I will write a small prescription for that pending review from Dr. Herman. Discharged home with return precautions. Patient verbalize understanding instructions and agreement with plan. (BELEN LINDO MD) Diagnostic Imaging Diagonstic Imaging: CT Plain Films/CT/US/NM/MRI: abdomen, pelvis Comments [facility] [place] [place], [place] NAME: IVETT BABCOCK [facility] REC#: [id number] PT STATUS: REG ER : 1945 PHYSICIAN: BELEN LINDO MD ADMIT DATE: 03/03/19/ER Draft Date of Exam:03/03/19 CT ABDOMEN/PELVIS WO PROCEDURE: CT abdomen and pelvis without contrast. TECHNIQUE: Multiple contiguous axial images were obtained through the abdomen and pelvis without the use of intravenous contrast. Auto Exposure Controls were utilized during the CT exam to meet ALARA standards for radiation dose reduction. INDICATION: Left flank pain for 3 days. COMPARISON: None. FINDINGS: The lung bases are clear. The heart is normal in size. There is no pericardial effusion. There is coronary atherosclerosis. There is elevation of the right hemidiaphragm. No focal hepatic lesions are seen on this noncontrast exam. The spleen appears normal. The pancreas is normal. The adrenal glands are unremarkable. The right kidney demonstrates no hydronephrosis or hydroureter. There is moderate to marked hydronephrosis on the left. There is mild hydroureter in the proximal left kidney, with a transition point at the L4-L5 vertebral level. This is immediately adjacent to a new soft tissue density measuring 3.5 x 2.0 cm (image 61 series 2). No renal calculi are seen bilaterally. The bowel loops are nondistended. No obstruction is seen. The appendix is normal. Multiple coils are seen in the pelvis bilaterally from prior hernia repair. There are multiple seeds noted at the prostate. There is stable prominence of the right seminal vesicles. No acute osseous abnormality is seen. IMPRESSION: 1. Moderate to marked left hydronephrosis with no obstructing calculi seen. There is proximal hydroureter, and the transition point is immediately adjacent to a new retroperitoneal soft tissue mass. This mass most likely represents lymphadenopathy. Retroperitoneal fibrosis is also in the differential, given the ureteral deviation and hydroureteronephrosis. Dictated on workstation # [id number] Dict: 03/03/19 1335 Trans: 03/03/19 1413 [facility] [id number] Interpreted by: MARIE MCCANN MD Electronically signed by: (BELEN LINDO MD) Departure Impression Primary Impression: Ureteral obstruction, left Additional Impressions: Hydronephrosis, left Left sided abdominal pain Disposition: 01 HOME, SELF-CARE Condition: Stable Departure-Patient Inst. Decision time for Depature: 15:14 (BELEN LINDO MD) Referrals: VAISHNAVI AGUILAR MD (PCP/Family) Primary Care Physician KRISTY HERMAN MD Patient Instructions: Acute Abdomen (Belly Pain), Adult (DC), Urinary Obstruction (DC), Hydronephrosis, Adult (DC) Add. Discharge Instructions: All discharge instructions reviewed with patient and/or family. Voiced understanding. Follow-up with Dr. Herman tomorrow at 4:15 PM. Take prescribed medication as directed. You may take one extra strength Tylenol/acetaminophen (500 mg) with 1 prescribed pain pill every 6 hours or you may have to extra strength Tylenol tablets every 6 hours. Do not exceed 8 tablets total in one day of the combined medicine and do not exceed 4000 mg of Tylenol/acetaminophen in 24 hours. Return for worse pain, fever, vomiting, weakness, breathing problems or other concerns as needed. Scripts Hydrocodone Bit/Acetaminophen (Hydrocodone/Acetaminophen 5/325mg Tablet) 1 Tab Tab 1 EACH PO Q6H PRN for PAIN-MODERATE MDD 10 for 3 Days, #8 TAB Prov: BELEN LINDO MD 03/03/19 Copy Copies To 1: KRISTY HERMAN MD Copies To 2: VAISHNAVI AGUILAR MD, JOSHUA K MED STUDENT Mar 03, 2019 11:38 BELEN LINDO MD Mar 03, 2019 14:50
[2019-03-03 11:54] LABS: BILIRUBIN,URINE NEGATIVE (NEGATIVE); CLARITY,URINE CLEAR; COLOR,URINE YELLOW; GLUCOSE, URINE (UA) NEGATIVE (NEGATIVE); KETONES,URINE NEGATIVE (NEGATIVE); LEUKOCYTE ESTERASE ,URINE NEGATIVE (NEGATIVE); NITRITE,URINE NEGATIVE (NEGATIVE); PH,URINE 5 (5-9); PROTEIN,URINE NEGATIVE (NEGATIVE); UROBILINOGEN,URINE NORMAL (NORMAL)
[2019-03-03 11:56] LABS: BASOPHILS % (AUTO) 0 % (0-10); EOSINOPHILS # (AUTO) 0.2 10^3/uL (0.0-0.3); EOSINOPHILS % (AUTO) 3 % (0-10); HEMATOCRIT 39 % (40-54); HEMOGLOBIN 13.5 G/DL (13.3-17.7); LYMPHOCYTES # (AUTO) 0.7 X 10^3 (1.0-4.0); LYMPHOCYTES % (AUTO) 10 % (12-44); MEAN CORPUSCULAR HEMOGLOBIN 31 PG (25-34); MEAN CORPUSCULAR HGB CONC 35 G/DL (32-36); MEAN CORPUSCULAR VOLUME 88 FL (80-99); MEAN PLATELET VOLUME 9.7 FL (7.4-10.4); MONOCYTES # (AUTO) 0.6 X 10^3 (0.0-1.0); MONOCYTES % (AUTO) 8 % (0-12); NEUTROPHILS # (AUTO) 6.1 X 10^3 (1.8-7.8); NEUTROPHILS % (AUTO) 80 % (42-75); PLATELET COUNT 199 10^3/uL (130-400); RED CELL DISTRIBUTION WIDTH 12.7 % (10.0-14.5); WHITE BLOOD COUNT 7.6 10^3/uL (4.3-11.0)
[2019-03-03 12:06] LABS: BACTERIA,URINE NEGATIVE /HPF
[2019-03-03 12:12] LABS: ALBUMIN 4.1 GM/DL (3.2-4.5); BILIRUBIN,TOTAL 0.9 MG/DL (0.1-1.0); CALCIUM 9.8 MG/DL (8.5-10.1); CREATININE SERUM 1.78 MG/DL (0.60-1.30); POTASSIUM 4.5 MMOL/L (3.6-5.0)
--- NOTE | 2019-03-03 13:59 | Diagnostic Imaging Report ---
PROCEDURE: CT abdomen and pelvis without contrast. TECHNIQUE: Multiple contiguous axial images were obtained through the abdomen and pelvis without the use of intravenous contrast. Auto Exposure Controls were utilized during the CT exam to meet ALARA standards for radiation dose reduction. INDICATION: Left flank pain for 3 days. COMPARISON: None. FINDINGS: The lung bases are clear. The heart is normal in size. There is no pericardial effusion. There is coronary atherosclerosis. There is elevation of the right hemidiaphragm. No focal hepatic lesions are seen on this noncontrast exam. The spleen appears normal. The pancreas is normal. The adrenal glands are unremarkable. The right kidney demonstrates no hydronephrosis or hydroureter. There is moderate to marked hydronephrosis on the left. There is mild hydroureter in the proximal left kidney, with a transition point at the L4-L5 vertebral level. This is immediately adjacent to a new soft tissue density measuring 3.5 x 2.0 cm (image 61 series 2). No renal calculi are seen bilaterally. The bowel loops are nondistended. No obstruction is seen. The appendix is normal. Multiple coils are seen in the pelvis bilaterally from prior hernia repair. There are multiple seeds noted at the prostate. There is stable prominence of the right seminal vesicles. No acute osseous abnormality is seen. IMPRESSION: 1. Moderate to marked left hydronephrosis with no obstructing calculi seen. There is proximal hydroureter, and the transition point is immediately adjacent to a new retroperitoneal soft tissue mass. This mass most likely represents lymphadenopathy. Retroperitoneal fibrosis is also in the differential, given the ureteral deviation and hydroureteronephrosis. Dictated by: Dictated on workstation # [id number]
[2019-03-03] MEDS ORDERED: fentaNYL INJECTION 100 MCG/2 ML AMP IVP STA (14:50)
[2019-03-03] MEDS ORDERED: HYDROcodone/APAP 5 MG/325 MG (LORTAB) TAB PO ONE (15:15)
[2019-03-03] MEDS ORDERED: ACHD5005 PO (15:18)
[2019-03-03 15:27] VITALS: BP 174/90
== END 2019-03-03 15:27 | disposition home or self-care (01) ==
LOC: EDUNIT# 09:35 → ER 09:36
DX: N13.1 Hydronephrosis with ureteral stricture, not elsewhere classified (principal); I10 Essential (primary) hypertension; E78.00 Pure hypercholesterolemia, unspecified; Z85.828 Personal history of other malignant neoplasm of skin; Z87.19 Personal history of other diseases of the digestive system; Z87.891 Personal history of nicotine dependence; Z98.890 Other specified postprocedural states; Z90.89 Acquired absence of other organs; Z85.46 Personal history of malignant neoplasm of prostate
CPT/HCPCS: 36415; 74176; 80053; 81000; 84153; 85025; 86141

== ENCOUNTER 2019-03-05 09:08 | Day surgery (SDC) | payer BC ==
[~2019-03-05] VITALS: Ht 177.8 cm; Wt 99.0 kg
[2019-03-05] VITALS (12 sets, daily range): BP systolic 94–161; BP diastolic 65–99
--- NOTE | 2019-03-05 09:20 | Progress Note-Pre Operative ---
Pre-Operative Progress Note H&P Reviewed The H&P was reviewed, patient examined and no changes noted. Date Seen by Provider: Mar 05, 2019 Time Seen by Provider: :19 Date H&P Reviewed: Mar 05, 2019 Time H&P Reviewed: 09:19 Pre-Operative Diagnosis: LT URETERAL OBSTRUCTION AND CA PROSTATE KRISTY HERMAN MD Mar 05, 2019 09:20
[2019-03-05] MEDS ORDERED: cefTRIAXone 1,000 MG IV (ROCEPHIN) VIAL ONE (10:00)
[2019-03-05] MEDS ORDERED: LIDOCAINE PF 2% 5 ML (XYLOCAINE) VIAL ONE (10:15)
[2019-03-05] MEDS ORDERED: SEVOFLURANE (ULTANE) 15 ML INHAL SOLN ONE ×2 (10:15→11:15)
[2019-03-05] MEDS ORDERED: MIDAZOLAM 2 MG/2 ML (VERSED) VIAL ONE (10:15)
[2019-03-05] MEDS ORDERED: DEXAMETHASONE 10 MG/ML (DECADRON) 1 ML VIAL ONE (10:15)
[2019-03-05] MEDS ORDERED: proPOfol 200 MG/20 ML (DIPRIVAN) VIAL IV ONE (10:15)
[2019-03-05] MEDS ORDERED: fentaNYL INJECTION 100 MCG/2 ML AMP ONE (10:15)
[2019-03-05] MEDS ORDERED: LACTATED RINGERS 1,000 ML IV PRN (10:15)
[2019-03-05] MEDS ORDERED: ONDANSETRON 4 MG/2 ML (SDV) Z0FRAN ONE (10:15)
--- NOTE | 2019-03-05 11:17 | Progress Note-Post Operative ---
Post-Operative Progess Note Surgeon (s)/Explosive Ordnance Specialist (s) Surgeon KRISTY HERMAN MD Explosive Ordnance Specialist: NONE Pre-Operative Diagnosis LT URETERAL OBSTRUCTION AND CA PROSTATE Post-Operative Diagnosis SAME Procedure & Operative Findings Date of Procedure 03/05/19 Procedure Performed/Findings CYSTOSCOPY, LT RETROGRADE UROGRAM AND INSERTION OF LT STENT Anesthesia Type GENERAL Estimated Blood Loss Estimated blood loss (mL): NONE Specimens/Packing Specimens Removed NONE Packing: NONE KRISTY HERMAN MD Mar 05, 2019 11:17
--- NOTE | 2019-03-05 11:22 | Discharge Inst-Urology ---
Discharge Inst-Urology Reconcile Patient Problems Problems Reviewed?: Yes Patient Instructions/Follow Up Plan/Assessment/Instructions Please make appointment to been seen in office TOMORROW AM for Lupron injection. Increase oral fluids for 48 hours and then as needed. Diet and Activity as tolerated. If questions or concerns contact your physician Or seek help at emergency department. KRISTY HERMAN MD Mar 05, 2019 11:22
[2019-03-05] MEDS ORDERED: morphine INJ 10 MG/ML 1ML (SYR OR VIAL) IVP ONE (11:30)
[2019-03-05] MEDS ORDERED: ONDANSETRON 4 MG/2 ML (SDV) Z0FRAN IVP PRN (11:30)
[2019-03-05] MEDS ORDERED: fentaNYL INJECTION 100 MCG/2 ML AMP IVP ONE (11:30)
[2019-03-05] MEDS ORDERED: SULF1TAB35 PO (13:08)
[2019-03-05] MEDS ORDERED: TAMS0.4C98 PO (13:08)
[2019-03-05] MEDS ORDERED: BICA50TA47 PO (13:08)
[2019-03-05] MEDS ORDERED: PHEN-640 PO (13:08)
--- NOTE | 2019-03-05 15:12 | Anesthesia-General Post-Op ---
General Patient Condition Mental Status/LOC: Same as Preop Cardiovascular: Satisfactory Nausea/Vomiting: Absent Respiratory: Satisfactory Pain: Controlled Complications: Absent Post Op Complications Complications None Follow Up Care/Instructions Patient Instructions None needed. Anesthesia/Patient Condition Patient Condition Patient was seen this morning after the procedure and he was doing well, no complaints, stable vital signs, no apparent adverse anesthesia problems. PRIYANK WILSON DO Mar 05, 2019 15:12
--- NOTE | 2019-03-09 07:46 | OPERATIVE REPORT ---
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 OPERATION PERFORMED: Cystoscopy, left retrograde urogram and insertion of left stent. SURGEON: Mulugeta Herman MD ANESTHESIA: General. COMPLICATIONS: None. DESCRIPTION OF PROCEDURE: Under satisfactory general anesthesia, the patient in lithotomy position, genitalia were prepped and draped in the usual sterile fashion. Cystoscope was introduced under vision. The anterior urethra was normal. The prostate was nonobstructing. The bladder neck was open. The bladder was inspected and revealed some trabeculations. Ureteric orifices are normal with clear efflux sluggish on the left side. Using the foroblique lens, I inserted a 5-Turkmen ureteral catheter, injected contrast and I could see a 2 cm narrow stricture type of the ureter proximal part coincided with the CT scan area. I went ahead and passed a stent. I was able to bypass the obstruction all the way up to the kidney guided fluoroscopically. I removed the wire. The stent was seen draining nicely proximally fluoroscopically and distally endoscopically. Bladder was evacuated and cystoscope was removed. The patient tolerated the procedure and anesthesia well and was sent to recovery room in stable condition. PLAN: I discussed the case with Dr. Jordan, the radiologist and he does not think it is amenable to do a biopsy percutaneously under CT guidance. I also discussed it with ____ and we agreed on the plan, which is most probably these are metastatic disease from the cancer of the prostate. I am going to talk to one of the general surgeon to see if they can obtain laparoscopic biopsy from there, but I am going to go ahead and initiate treatment with total androgen blockade and have the patient come tomorrow to the office and start that and I have talked to ____, she said that should not interfere much with his pathological diagnosis if we do biopsies. The plan was fully explained to the patient preoperatively and to the postoperatively. Job ID: [id number] DocumentID: [id number] Dictated Date: 03/05/2019 11:20:49 Vortex Operator Date: 03/05/2019 15:56:12 Dictated By: MULUGETA HERMAN MD
== END 2019-03-05 13:40 | disposition home or self-care (01) ==
LOC: SDC 09:08
PROVIDERS: ATTEND Urology
DX: N13.5 Crossing vessel and stricture of ureter without hydronephrosis (principal); C61 Malignant neoplasm of prostate; I10 Essential (primary) hypertension; Z79.899 Other long term (current) drug therapy
CPT/HCPCS: 87081

== ENCOUNTER → 2019-03-13 | Outpatient (CLI) | payer BC ==
[~2019-03-13] MED LIST changes: +BICA50TA47 PO; +SULF1TAB35 PO
--- NOTE | 2019-03-13 15:30 | Diagnostic Imaging Report ---
INDICATION: Prostate carcinoma. TECHNIQUE: Patient was administered 26.4 mCi technetium 99m MDP intravenously and whole-body imaging was performed after a three-hour delay. COMPARISON: Correlation is made with prior whole body bone scan from 01/28/2017. FINDINGS: There is normal uptake of activity by the axial and appendicular skeleton. There is uptake by both kidneys with excretion into the urinary bladder. No abnormal foci of tracer accumulation is seen to suggest osseous metastatic disease. IMPRESSION: Stable whole-body bone scan. There are no findings to suggest osseous metastatic disease.? Dictated by: Dictated on workstation # [id number]
== END ==
LOC: CARD 10:34
PROVIDERS: ATTEND Urology
DX: C61 Malignant neoplasm of prostate (principal)
CPT/HCPCS: 78306

== ENCOUNTER → 2019-07-13 | Outpatient (CLI) | payer BC ==
[~2019-07-13] MED LIST changes: +SIMV40TA25 PO; -SIMV40TA4 PO; -TAMS0.4C98 PO; +TMSL.4C PO
[2019-07-13 15:25] LABS: BASOPHILS % (AUTO) 1 % (0-10); EOSINOPHILS # (AUTO) 0.3 10^3/uL (0.0-0.3); EOSINOPHILS % (AUTO) 5 % (0-10); HEMATOCRIT 35 % (40-54); HEMOGLOBIN 12.1 G/DL (13.3-17.7); LYMPHOCYTES # (AUTO) 1.6 X 10^3 (1.0-4.0); LYMPHOCYTES % (AUTO) 24 % (12-44); MEAN CORPUSCULAR HEMOGLOBIN 31 PG (25-34); MEAN CORPUSCULAR HGB CONC 35 G/DL (32-36); MEAN CORPUSCULAR VOLUME 90 FL (80-99); MEAN PLATELET VOLUME 8.9 FL (7.4-10.4); MONOCYTES # (AUTO) 0.7 X 10^3 (0.0-1.0); MONOCYTES % (AUTO) 10 % (0-12); NEUTROPHILS # (AUTO) 3.8 X 10^3 (1.8-7.8); NEUTROPHILS % (AUTO) 59 % (42-75); PLATELET COUNT 192 10^3/uL (130-400); RED CELL DISTRIBUTION WIDTH 12.5 % (10.0-14.5); WHITE BLOOD COUNT 6.4 10^3/uL (4.3-11.0)
[2019-07-13 15:44] LABS: ALANINE AMINOTRANSFERASE 18 U/L (0-55); ALBUMIN 4.1 GM/DL (3.2-4.5); ALKALINE PHOSPHATASE 62 U/L (40-136); BILIRUBIN,TOTAL 0.4 MG/DL (0.1-1.0); BUN/CREATININE RATIO 25; CALCIUM 9.6 MG/DL (8.5-10.1); CARBON DIOXIDE 22 MMOL/L (21-32); CHLORIDE 111 MMOL/L (98-107); CREATININE SERUM 1.02 MG/DL (0.60-1.30); GFR ESTIMATED > 60; GLUCOSE 124 MG/DL (70-105); POTASSIUM 4.1 MMOL/L (3.6-5.0); SODIUM 140 MMOL/L (135-145); TOTAL PROTEIN 6.7 GM/DL (6.4-8.2)
--- NOTE | 2019-07-13 15:59 | Diagnostic Imaging Report ---
EXAMINATION: CT abdomen and pelvis without contrast. TECHNIQUE: Multiple contiguous axial images were obtained through the abdomen and pelvis without the use of intravenous contrast. All CT scans use one or more of the following dose optimizing techniques: Automated exposure control, MA and/or KvP adjustment based on a patient size and exam type, or iterative reconstruction. HISTORY: Prostate CA. COMPARISON: 03/03/2019. FINDINGS: Limited views of the lower thorax show moderate coronary artery calcifications. The liver is normal without focal lesion. There is no biliary ductal dilation. Gallbladder contains gallstones. Pancreas is normal. Spleen is normal. Adrenal glands are normal. There is a left-sided nephroureteral stent. Previously seen hydronephrosis has resolved. Radiotherapy beads are present in the prostate. A retroperitoneal lymph node at the transition point in the left ureter measures 13 x 24 mm, previously 30 x 16 mm. Urinary bladder is normal. Foreign material in the region of the inguinal canals likely represents prior inguinal hernia repair. There are no dilated loops of large or small bowel. No obstruction or inflammation. No free fluid or air. No abdominal or pelvic lymphadenopathy. Aorta is normal in caliber without aneurysm. There are no suspicious osseous lesions. IMPRESSION: 1. Resolution of left-sided hydronephrosis and decrease in size of left retroperitoneal lymph nodes status post left nephroureteral stent placement. Dictated by: Dictated on workstation # [id number]
== END ==
LOC: RAD 15:09
PROVIDERS: ATTEND Urology
DX: C61 Malignant neoplasm of prostate (principal)
CPT/HCPCS: 36415; 74176; 80053; 84153; 84403; 85025

== ENCOUNTER → 2019-11-16 | Outpatient (CLI) | payer BC ==
[~2019-11-16] MED LIST changes: +IRBE300T17 PO; -IRBE300T18 PO
--- NOTE | 2019-11-16 14:09 | Diagnostic Imaging Report ---
PROCEDURE: CT abdomen and pelvis without contrast. TECHNIQUE: Multiple contiguous axial images were obtained through the abdomen and pelvis without the use of intravenous contrast. Auto Exposure Controls were utilized during the CT exam to meet ALARA standards for radiation dose reduction. INDICATION: Prostate cancer. FINDINGS: The previous CT abdomen/pelvis exam of 07/13/2019 noted a left-sided nephroureteral stent in place as well as numerous radiopaque seed implants within the prostate gland. Those findings are again evident on this study and do not seem to have changed significantly. The surgical clips along the anterior abdominal wall bilaterally seen previously are also again evident and stable. As noted on the prior exam, there is diverticulosis of the sigmoid and descending colon but there is no sign of acute diverticulitis. The appendix was visualized and is not abnormally thickened. There is no pelvic mass or free fluid collection noted. The liver, spleen, pancreas, adrenals, kidneys, aorta, and inferior vena cava show no sign of an acute abnormality. The gallbladder is not well-distended and consequently difficult to assess. Conversely, the stomach is filled with particulate matter and also difficult to evaluate. The bone windows show no sign of a fracture or of a destructive lesion. The lung bases are clear. IMPRESSION: 1. The ureteral stent on the left seen previously is again evident and remains in good position. There is no sign of an acute abnormality of the left kidney. 2. The overall appearance of the abdomen and pelvis is also unchanged when compared to the prior exam. There is no new abnormality noted. Dictated by: Dictated on workstation # [id number]
== END ==
LOC: RAD 12:43
PROVIDERS: ATTEND Urology
DX: C61 Malignant neoplasm of prostate (principal)
CPT/HCPCS: 74176

== ENCOUNTER → 2020-03-23 | Outpatient (CLI) | payer BC ==
--- NOTE | 2020-03-23 10:25 | Diagnostic Imaging Report ---
PROCEDURE: CT abdomen and pelvis without contrast. TECHNIQUE: Multiple contiguous axial images were obtained through the abdomen and pelvis without the use of intravenous contrast. Auto Exposure Controls were utilized during the CT exam to meet ALARA standards for radiation dose reduction. INDICATION: Left ureteral obstruction. Patient has history of prostate carcinoma. Correlation is made with prior CT 11/16/2019. FINDINGS: The lung bases are clear. No discrete liver mass is detected. Gallbladder is contracted. No biliary ductal dilatation is seen. Pancreas and spleen are unremarkable. No adrenal mass is detected. The right kidney is unremarkable. A left-sided nephroureteral stent has been removed. No hydronephrosis is identified. No renal calculi or ureteral calculi are detected. No bladder calculi are seen. Aorta is calcified but non-aneurysmal. There has been development of an enlarged lymph node in the left para-aortic location at the level of the lower pole left kidney measuring 15 mm in diameter. No iliac or obturator lymphadenopathy is seen. No inguinal lymphadenopathy is seen. There are multiple implants within the prostate gland. Postsurgical changes involving the anterior abdominal wall is noted. The bony structures are nonacute. IMPRESSION: 1. Removal of left-sided nephroureteral stent. No calculi or hydronephrosis is detected. 2. Development of an enlarged left periaortic lymph node since prior CT. This is concerning for possibility of metastatic disease. No other areas of lymphadenopathy are identified. 3. No other significant abnormality is detected. Dictated by: Dictated on workstation # [id number]
== END ==
LOC: RAD 09:45
PROVIDERS: ATTEND Urology
DX: N13.5 Crossing vessel and stricture of ureter without hydronephrosis (principal)
CPT/HCPCS: 74176

== ENCOUNTER → 2020-08-03 | Outpatient (CLI) | payer BC ==
[2020-08-03 10:23] LABS: HEMOGLOBIN 13.1 g/dL (13.3-17.7); MEAN PLATELET VOLUME 9.7 fL (9.0-12.2); WHITE BLOOD COUNT 7.5 10^3/uL (4.3-11.0)
[2020-08-03 10:42] LABS: ALBUMIN 4.4 GM/DL (3.2-4.5); BILIRUBIN,TOTAL 0.9 MG/DL (0.1-1.0); CREATININE SERUM 1.31 MG/DL (0.60-1.30); POTASSIUM 4.2 MMOL/L (3.6-5.0); TOTAL PROTEIN 7.1 GM/DL (6.4-8.2)
--- NOTE | 2020-08-03 11:10 | Diagnostic Imaging Report ---
EXAMINATION: CT Abdomen/Pelvis without contrast. TECHNIQUE: Multiple contiguous axial images were obtained through the abdomen and pelvis without the use of intravenous contrast. All CT scans use one or more of the following dose optimizing techniques: automated exposure control, MA and/or KvP adjustment based on a patient size and exam type, or iterative reconstruction. HISTORY: Prostate cancer, left lower quadrant pain. COMPARISON: CT abdomen/pelvis 03/23/2020. FINDINGS: Lung bases: The lung bases are clear. Solid organs: The liver is normal. The gallbladder is normal. There is no biliary ductal dilation. Pancreas is normal. Spleen is normal. Adrenal glands are normal. There is severe left hydronephrosis and proximal hydroureter. The right kidney is unremarkable without hydronephrosis. Bowel: The stomach and small bowel are normal without obstruction. There is scattered colonic diverticulosis. The appendix is normal. Peritoneum: There is no intraperitoneal free fluid or free air. Significantly increased size of multiple enlarged retroperitoneal lymph nodes. A registered representative node measures 3.2 x 2.3 cm (series 2 image 53), (previously 1.5 x 1.2 cm). Vasculature: Calcification of the aorta without aneurysm. Musculoskeletal: Degenerative changes of the spine without suspicious osseous lesion or compression fracture. Surgical changes of the bilateral inguinal regions. Pelvis: Multiple radiation beads within the prostate gland. The urinary bladder is normal. IMPRESSION: 1. New severe left-sided hydronephrosis with obstruction at the level of the large left retroperitoneal lymph nodes. 2. Increased size of multiple retroperitoneal lymph nodes, concerning for disease progression given history of prostate cancer. Dictated by: Dictated on workstation # [id number]
== END ==
LOC: RAD 10:45
PROVIDERS: ATTEND Urology
DX: C61 Malignant neoplasm of prostate (principal)
CPT/HCPCS: 36415; 74176; 80053; 84153; 84403; 85027

== ENCOUNTER → 2020-08-08 | Outpatient (CLI) | payer BC ==
--- NOTE | 2020-08-08 11:29 | Diagnostic Imaging Report ---
PROCEDURE: US right lower extremity venous. TECHNIQUE: Multiple real-time grayscale images were obtained over the right lower extremity in various projections. Additional spectral analysis and color Doppler duplex images were also obtained. INDICATION: Right lower extremity edema and pain. COMPARISON: None available. FINDINGS: There is occlusive thrombus within the mid and distal aspects of the superficial femoral vein as well as in the popliteal vein. The right common femoral and proximal superficial femoral vein were patent with compressibility. The anterior tibial and posterior tibial veins are patent with waveform augmentation and compressibility. IMPRESSION: Occlusive deep venous thrombus from the mid superficial femoral vein through the popliteal vein. Dictated by: Dictated on workstation # [id number]
== END ==
LOC: RAD 10:36
PROVIDERS: ATTEND Nurse Practitioner Family
DX: I82.4Z1 Acute embolism and thrombosis of unspecified deep veins of right distal lower extremity (principal)

== ENCOUNTER → 2020-08-16 | Outpatient (CLI) | payer BC | LOC: CARD 10:31 | PROVIDERS: ATTEND Nurse Practitioner Family | DX: I49.9 Cardiac arrhythmia, unspecified (principal) | CPT/HCPCS: 93005 ==

== ENCOUNTER 2020-08-22 05:34 | Outpatient (RCR) | payer BC ==
[~2020-08-22] VITALS: Ht 177 cm; Wt 100.0 kg
[2020-08-24] MEDS ORDERED: APIX5TAB PO (09:20)
[2020-08-24] MEDS ORDERED: MEGE20TA3 PO (09:27)
[2020-08-24] MEDS ORDERED: DOCU-163 PO (09:27)
[2020-08-24] MEDS ORDERED: PHEN-640 PO (12:35)
[2020-08-24] MEDS ORDERED: SULF1TAB35 PO (12:35)
[2020-08-24] MEDS ORDERED: TRM50T PO (12:35)
== END 2020-08-22 10:23 | disposition home or self-care (01) ==
LOC: PREOP 05:34
PROVIDERS: ATTEND Urology
DX: Z01.812 Encounter for preprocedural laboratory examination (principal); N13.5 Crossing vessel and stricture of ureter without hydronephrosis; Z20.822 Contact with and (suspected) exposure to COVID-19
CPT/HCPCS: 87635

== ENCOUNTER 2020-08-24 08:05 | Day surgery (SDC) | payer BC ==
[2020-08-24] VITALS (11 sets, daily range): BP systolic 114–150; BP diastolic 70–93
[~2020-08-24] VITALS: Ht 177 cm; Wt 100.0 kg
[2020-08-24] MEDS ORDERED: LIDOCAINE PF 2% 5 ML (XYLOCAINE) VIAL ONE (08:23)
[2020-08-24] MEDS ORDERED: proPOfol 200 MG/20 ML (DIPRIVAN) VIAL IV ONE (08:23)
[2020-08-24] MEDS ORDERED: SEVOFLURANE (ULTANE) 15 ML INHAL SOLN ONE ×4 (08:23→09:32)
[2020-08-24] MEDS ORDERED: MIDAZOLAM 2 MG/2 ML (VERSED) VIAL ONE (08:23)
[2020-08-24] MEDS ORDERED: ONDANSETRON 4 MG/2 ML (SDV) Z0FRAN ONE (08:23)
[2020-08-24] MEDS ORDERED: fentaNYL INJECTION 100 MCG/2 ML AMP ONE (08:24)
[2020-08-24] MEDS ORDERED: CATHETER FLUSH 10 ML SYR IV PRN (08:30)
[2020-08-24] MEDS ORDERED: cefTRIAXone FOR IV USE 1,000 MG in WATER (STERILE) FOR INJECTION 10 ML IV ONE (08:30)
--- NOTE | 2020-08-24 08:57 | Progress Note-Pre Operative ---
Pre-Operative Progress Note H&P Reviewed The H&P was reviewed, patient examined and no changes noted. Date Seen by Provider: Aug 24, 2020 Time Seen by Provider: 08:56 Date H&P Reviewed: Aug 24, 2020 Time H&P Reviewed: 08:56 Pre-Operative Diagnosis: LT URETERAL OBSTRUCTION KRISTY HERMAN MD Aug 24, 2020 08:56
[2020-08-24] MEDS ORDERED: APIX5TAB PO ×2 (09:20)
[2020-08-24] MEDS: LACTATED RINGERS 1,000 ML IV PRN ×2 (09:23→10:54)
[2020-08-24] MEDS ORDERED: DOCU-163 PO ×2 (09:27)
[2020-08-24] MEDS ORDERED: MEGE20TA3 PO ×2 (09:27)
[2020-08-24] MEDS ORDERED: IOPAMIDOL 61% 30 ML (ISOVUE 300) VIAL ONE (10:04)
--- NOTE | 2020-08-24 10:05 | Progress Note-Post Operative ---
Post-Operative Progess Note Surgeon (s)/Mortician Supplies Sales Representative (s) Surgeon KRISTY HERMAN MD Mortician Supplies Sales Representative: NONE Pre-Operative Diagnosis LT URETERAL OBSTRUCTION Post-Operative Diagnosis SAME Procedure & Operative Findings Date of Procedure 08/24/20 Procedure Performed/Findings CYSTOSCOPY WITH LT RETROGRADE UROGRAM AND ATTEMPTED STENT Anesthesia Type GENERAL Estimated Blood Loss Estimated blood loss (mL): NONE Specimens/Packing Specimens Removed NONE Packing: NONE KRISTY HERMAN MD Aug 24, 2020 10:05
[2020-08-24] MEDS ORDERED: RT-ALBUTEROL SULF 2.5 MG/3 ML PRE-MIX VIAL ONE (10:06)
--- NOTE | 2020-08-24 10:08 | Discharge Inst-Urology ---
Discharge Inst-Urology Reconcile Patient Problems Problems Reviewed?: Yes Final Diagnosis LT URETERAL OBSTRUCTION Patient Instructions/Follow Up Plan/Assessment/Instructions Please make appointment to been seen in office Saturday May resume Eliquis if no bleeding Increase oral fluids for 48 hours and then as needed. Diet and Activity as tolerated. If questions or concerns contact your physician Or seek help at emergency department. KRISTY HERMAN MD Aug 24, 2020 10:07
[2020-08-24] MEDS ORDERED: ONDANSETRON 4 MG/2 ML (SDV) Z0FRAN IVP PRN (10:15)
[2020-08-24] MEDS ORDERED: HYDROmorphone 2 MG/ML VIAL (DILAUDID) IV ONE (10:15)
[2020-08-24] MEDS ORDERED: RT-ALBUTEROL SULF 2.5 MG/3 ML PRE-MIX VIAL INH ONE (10:15)
[2020-08-24] MEDS ORDERED: TRM50T PO ×2 (12:35)
[2020-08-24] MEDS ORDERED: SULF1TAB35 PO ×2 (12:35)
[2020-08-24] MEDS ORDERED: PHEN-640 PO ×2 (12:35)
--- NOTE | 2020-08-24 14:50 | OPERATIVE REPORT ---
DATE OF SERVICE: 08/24/2020 PREOPERATIVE DIAGNOSIS: Left ureteral obstruction. POSTOPERATIVE DIAGNOSIS: Left ureteral obstruction. OPERATION PERFORMED: Cystoscopy, left retrograde urogram, attempted insertion of left ureteral stent. SURGEON: Mulugeta Herman MD ANESTHESIA: General. COMPLICATIONS: None. DESCRIPTION OF PROCEDURE: Under satisfactory general anesthesia, the patient in lithotomy position, genitalia were prepped and draped in the usual sterile fashion. Cystoscope was introduced under vision. The anterior urethra was normal. The prostate was nonobstructing. Bladder neck was open. The bladder was essentially normal except for a sluggish efflux on the left side. Using the foroblique lens, I inserted the ureteral catheter to perform retrograde urogram and I could see about 1 cm very narrowed stricture in the proximal ureter coinciding with the CT scan findings. I tried to pass a stent, was unable to, so I was able to pass a Glidewire up all the way to the kidney; however, the stent would not go through the obstruction over the Glidewire. I discontinued further attempt, removed the stent and the Glidewire, emptied the bladder, removed the cystoscope. The patient tolerated the procedure and anesthesia well and was sent to recovery room in stable condition. RECOMMENDATION: Interventional radiology to both obtained biopsies from the lymph node enlargement as well as insertion of a left percutaneous nephrostomy with or without an antegrade nephroureteral stent. This was fully explained to the patient preoperatively and to the postoperatively. Job ID: [id number] DocumentID: [id number] Dictated Date: 08/24/2020 10:11:28 Topographical Field Assistant Date: 08/24/2020 14:48:27 Dictated By: MULUGETA HERMAN MD
--- NOTE | 2020-08-24 15:28 | Anesthesia-General Post-Op ---
General Patient Condition Mental Status/LOC: Same as Preop Cardiovascular: Satisfactory Nausea/Vomiting: Absent Respiratory: Satisfactory Pain: Controlled Complications: Absent Post Op Complications Complications None Follow Up Care/Instructions Patient Instructions None needed. Anesthesia/Patient Condition Patient Condition Patient is doing well, no complaints, stable vital signs, no apparent adverse anesthesia problems. No complications reported per nursing. D/C home per [facility] Criteria: Yes HERMINIA OCAMPO CRNA Aug 24, 2020 15:28
== END 2020-08-24 13:05 | disposition home or self-care (01) ==
LOC: SDC 08:05
PROVIDERS: ATTEND Urology
DX: N13.5 Crossing vessel and stricture of ureter without hydronephrosis (principal); I10 Essential (primary) hypertension; E66.9 Obesity, unspecified; Z68.31 Body mass index [BMI] 31.0-31.9, adult; Z86.718 Personal history of other venous thrombosis and embolism; Z87.891 Personal history of nicotine dependence; Z79.2 Long term (current) use of antibiotics; Z79.891 Long term (current) use of opiate analgesic; Z79.01 Long term (current) use of anticoagulants; Z79.899 Other long term (current) drug therapy; Z98.890 Other specified postprocedural states; Z98.52 Vasectomy status; Z90.89 Acquired absence of other organs
CPT/HCPCS: 52005; 76000; 87081; C2625

== ENCOUNTER → 2020-08-26 | Outpatient (CLI) | payer BC ==
[~2020-08-26] MED LIST changes: +APIX5TAB PO; +DOCU-163 PO; +MEGE20TA3 PO; +TRM50T PO
--- NOTE | 2020-08-26 12:08 | Diagnostic Imaging Report ---
INDICATION: Cough and shortness of breath. EXAMINATION: PA and lateral chest FINDINGS: Heart size and pulmonary vascularity are normal. Lungs are clear. There are no effusions or pneumothoraces. IMPRESSION: No acute abnormalities in the chest. Dictated by: Dictated on workstation # [id number]
== END ==
LOC: RAD 11:38
PROVIDERS: ATTEND Nurse Practitioner Family
DX: R05 Cough (principal); R06.02 Shortness of breath
CPT/HCPCS: 71046

== ENCOUNTER → 2020-08-30 | Outpatient (CLI) | payer BC ==
--- NOTE | 2020-08-30 12:53 | Diagnostic Imaging Report ---
INDICATION: Carcinoma of the prostate gland with subsequent treatment strategy in restaging, status post radiation therapy in 2017. Serum blood glucose level at the time of injection is 118 mg/dL. Patient was administered 13.3 mCi F-18 FDG intravenously in the right antecubital location and PET imaging was performed from the top of the skull to mid thighs. Noncontrast CT was also performed for attenuation correction and anatomic correlation. FINDINGS: There is symmetric activity throughout the brain. There is symmetric activity throughout the neck with no suspicious hypermetabolism. There is some muscular uptake present posteriorly. No mediastinal or hilar hypermetabolism is identified. No pulmonary parenchymal hypermetabolism is identified. Abdomen and pelvis demonstrate physiologic activity throughout the gastrointestinal and genitourinary tracts. There is significant hydronephrosis of the left renal collecting system and left ureter. There is significant hypermetabolism involving the enlarged left para-aortic central retroperitoneal lymph nodes with SUV max of approximately 16. These extend into the left iliac location. No other areas of suspicious hypermetabolism are identified. IMPRESSION: Hypermetabolic lymphadenopathy in the left periaortic central retroperitoneum and left common iliac location consistent with metastatic disease. No other suspicious regions of hypermetabolism are identified. Dictated by: Dictated on workstation # [id number]
== END ==
LOC: RAD 08:15
PROVIDERS: ATTEND Internal Medicine Hematology & Oncology
DX: C61 Malignant neoplasm of prostate (principal); R59.0 Localized enlarged lymph nodes
CPT/HCPCS: 78815; A9552

== ENCOUNTER → 2020-09-12 | Outpatient (CLI) | payer BC | LOC: LABNPT 07:09 | PROVIDERS: ATTEND Urology | DX: Z20.822 Contact with and (suspected) exposure to COVID-19 (principal) | CPT/HCPCS: 87635 ==

== ENCOUNTER 2020-09-28 22:49 | Emergency (ER) | payer BC ==
[~2020-09-28] VITALS: Ht 180 cm; Wt 92.1 kg
[2020-09-28] MEDS ORDERED: KETOROLAC 30 MG/ML VIAL IVP STA (23:29)
[2020-09-28] MEDS ORDERED: ONDANSETRON 4 MG/2 ML (SDV) Z0FRAN IVP ONE (23:30)
[2020-09-28] MEDS ORDERED: NS IV 1000 ML 1,000 ML IV SCH (23:30)
--- NOTE | 2020-09-28 23:40 | ED Abdominal Pain ---
General Chief Complaint: Abdominal/GI Problems Stated Complaint: L SIDE ABD PAIN Source of Information: Patient (DIFFICULT HISTORIAN) History of Present Illness Date Seen by Provider: Sep 28, 2020 Time Seen by Provider: 23:23 Initial Comments PT ARRIVES VIA POV FROM HOME WITH C/O LLQ PAIN X 2 DAYS C/O NAUSEA AND VOMITED X 1 --LAST NIGHT AND TONIGHT, AFTER EATING C/O DIFFICULTY URINATING--HAS VOIDED X 3--SMALL AMOUNTS HAS ONGOING PAIN WITH URINATION PT IS BEING TREATED FOR PROSTATE CANCER, AND HAD LEFT URETERAL STENT PLACED 09/15/20 AT FOR URETERAL OBSTRUCTION DUE TO CANCER NO FEVER PT HAS BEEN HAVING ONGOING CONSTIPATION, AND TONIGHT, HE PASSED A FEW SMALL PELLETS. NO BLACK/BLOODY/TARRY STOOLS NO FLANK PAIN SAW DR. AGUILAR TODAY FOR THIS PROBLEM--HAD OUTPATIENT LAB DONE AT OUTSIDE REFERENCE LAB. GIVEN RX FOR CEFDINIR--HAD HIS FIRST DOSE TONIGHT WITH DINNER. PT ALSO HAS HISTORY OF DIVERTICULAR DISEASE-NOTED ON PREVIOUS COLONOSCOPY PCP; DR. AGUILAR ONCOLOGY: DR. WILKINSON UROLOGY: DR. HERMAN AND KU--HAS APPOINTMENT WITH DR HERMAN NEXT WEEK AND WITH ZEB THIS MONTH Allergies and Home Medications Allergies Coded Allergies: No Known Drug Allergies (Unverified , 08/19/20) Home Medications Bicalutamide 50 Mg Tablet, 50 MG PO DAILY Prescribed by: BRIT WARREN on 03/05/19 1308 Cholecalciferol (Vitamin D3) 1,000 Unit Tablet, 1,000 UNIT PO DAILY, (Reported) Docusate Sodium 100 Mg Capsule, 100 MG PO DAILY, (Reported) Irbesartan 300 Mg Tablet, 300 MG PO DAILY, (Reported) Megestrol Acetate 20 Mg Tablet, 20 MG PO BID, (Reported) Multivitamin 1 Each Tablet, 1 EACH PO DAILY, (Reported) Ondansetron 8 Mg Tab.rapdis, 8 MG PO Q6H Prescribed by: LORRAINE SANZ on 09/29/20 0120 Phenazopyridine HCl 200 Mg Tablet, 1 TAB PO TID Prescribed by: LESLY SCHROEDER on 08/24/20 1235 Simvastatin 40 Mg Tablet, 40 MG PO DAILY, (Reported) Sulfamethoxazole/Trimethoprim 1 Each Tablet, 1 TAB PO BID Prescribed by: LESLY SCHROEDER on 08/24/20 1235 Tramadol HCl 50 Mg Tablet, 1-2 TAB PO Q4H PRN for PAIN-MODERATE (5-7) Prescribed by: LESLY SCHROEDER on 08/24/20 1235 Patient Home Medication List Home Medication List Reviewed: Yes Review of Systems Review of Systems Constitutional: no symptoms reported; No fever Respiratory: No Symptoms Reported Cardiovascular: No Symptoms Reported Gastrointestinal: See HPI, Abdominal Pain, Constipated, Nausea; Denies Poor Appetite; Vomiting Genitourinary: See HPI, Burning; Denies Flank Pain Musculoskeletal: no symptoms reported; No back pain Skin: no symptoms reported Psychiatric/Neurological: No Symptoms Reported Endocrine: No Symptoms Reported Hematologic/Lymphatic: No Symptoms Reported Past [id number]-[id number]-Lkscwp Hx Past Med/Social Hx: Reviewed and Corrections made Patient Social History Alcohol Use: Denies Use Smoking Status: Former Smoker Type Used: Cigars, Cigarettes, Pipe Former Smoker, Quit: Apr 05, 1981 2nd Hand Smoke Exposure: No Recent Hopitalizations: No Immunizations Up To Date Tetanus Booster (TDap): More than 5yrs Date of Pneumonia Vaccine: Apr 05, 2015 Date of Influenza Vaccine: Mar 24, 2020 Seasonal Allergies Seasonal Allergies: No Past Medical History Surgeries: Yes (LEFT INGUINAL HERNIA X2, R INGUINAL HERNIA; LEFT URETERAL STENT 09/15/20) Abdominal, Adenoidectomy, Renal, Tonsillectomy, Vasectomy Respiratory: No Currently Using CPAP: No Currently Using BIPAP: No Cardiac: Yes High Cholesterol, Hypertension Neurological: No Reproductive Disorders: No Sexually Transmitted Disease: No HIV/AIDS: No Genitourinary: Yes (PROSTATE CANCER DX 01/2017) Prostate Problems Gastrointestinal: Yes (HERNIA REPAIRS) Abdominal Hernia, Diverticulosis Musculoskeletal: Yes (sciatica) Arthritis Endocrine: No HEENT: No Loss of Vision: Bilateral Hearing Impairment: Denies Cancer: Yes Prostate, Skin Did You Recieve Any Treatments: Yes What Type of Treatment Did You: Radiation S/P RADIATION IMPLANTS AND CURRENTLY ON HORMONE THERAPY OF 09/28/20 HAD LEFT URETERAL STENT AT 09/15/20 FOR URETERAL OBSTRUCTION DUE TO CANCER/MASS Psychosocial: No Integumentary: Yes (SKIN CANCER) Blood Disorders: No Adverse Reaction/Blood Tranf: No Physical Exam Vital Signs Vital Signs - First Documented 09/28/20 23:16 Temp 37.1 Pulse 66 Resp 18 B/P (MAP) 125/73 (90) Pulse Ox 97 O2 Delivery Room Air Capillary Refill : Height/Weight/BMI Height: 5'11.00" Weight: 216lbs. 0.0oz. 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, no motor/sensory deficits, alert, normal mood/affect, oriented x 3 Skin: normal color, warm/dry Progress/Results/Core Measures Results/Orders Lab Results Laboratory Tests Test 09/28/20 00:30 09/28/20 23:40 Range/Units Urine Color YELLOW Urine Clarity CLEAR Urine pH 5.5 5-9 Urine Specific [place] 1.025 H 1.016-1.022 Urine Protein NEGATIVE NEGATIVE Urine Glucose (UA) NEGATIVE NEGATIVE Urine Ketones NEGATIVE NEGATIVE Urine Nitrite NEGATIVE NEGATIVE Urine Bilirubin NEGATIVE NEGATIVE Urine Urobilinogen 0.2 < = 1.0 MG/DL Urine Leukocyte Esterase 1+ H NEGATIVE Urine RBC (Auto) 3+ H NEGATIVE Urine RBC 2-5 H /HPF Urine WBC 5-10 H /HPF Urine Crystals PRESENT H /LPF Urine Amorphous Sediment FEW [place] URATES H /LPF Urine Bacteria FEW H /HPF Urine Casts NONE /LPF Urine Mucus NEGATIVE /LPF Urine Culture Indicated YES White Blood Count 6.4 4.3-11.0 10^3/uL Red Blood Count 3.70 L 4.30-5.52 10^6/uL Hemoglobin 11.7 L 13.3-17.7 g/dL Hematocrit 34 L 40-54 % Mean Corpuscular Volume 92 80-99 fL Mean Corpuscular Hemoglobin 32 25-34 pg Mean Corpuscular Hemoglobin Concent 34 32-36 g/dL Red Cell Distribution Width 12.0 10.0-14.5 % Platelet Count 201 130-400 10^3/uL Mean Platelet Volume 9.5 9.0-12.2 fL Immature Granulocyte % (Auto) 0 % Neutrophils (%) (Auto) 60 42-75 % Lymphocytes (%) (Auto) 25 12-44 % Monocytes (%) (Auto) 10 0-12 % Eosinophils (%) (Auto) 3 0-10 % Basophils (%) (Auto) 1 0-10 % Neutrophils # (Auto) 3.8 1.8-7.8 10^3/uL Lymphocytes # (Auto) 1.6 1.0-4.0 10^3/uL Monocytes # (Auto) 0.7 0.0-1.0 10^3/uL Eosinophils # (Auto) 0.2 0.0-0.3 10^3/uL Basophils # (Auto) 0.1 0.0-0.1 10^3/uL Immature Granulocyte # (Auto) 0.0 0.0-0.1 10^3/uL Prothrombin Time 14.8 H 12.2-14.7 SEC INR Comment 1.1 0.8-1.4 Activated Partial Thromboplast Time 26 24-35 SEC Sodium Level 140 135-145 MMOL/L Potassium Level 3.9 3.6-5.0 MMOL/L Chloride Level 110 H 98-107 MMOL/L Carbon Dioxide Level 18 L 21-32 MMOL/L Anion Gap 12 5-14 MMOL/L Blood Urea Nitrogen 34 H 7-18 MG/DL Creatinine 1.31 H 0.60-1.30 MG/DL Estimat Glomerular Filtration Rate 53 BUN/Creatinine Ratio 26 Glucose Level 95 70-105 MG/DL Calcium Level 9.3 8.5-10.1 MG/DL Corrected Calcium 9.4 8.5-10.1 MG/DL Total Bilirubin 0.5 0.1-1.0 MG/DL Aspartate Amino Transf (AST/SGOT) 17 5-34 U/L Alanine Aminotransferase (ALT/SGPT) 20 0-55 U/L Alkaline Phosphatase 61 40-136 U/L Total Protein 6.4 6.4-8.2 GM/DL Albumin 3.9 3.2-4.5 GM/DL Amylase Level 137 H 25-125 U/L Lipase 118 H 8-78 U/L My Orders Orders - LORRAINE SANZ DO Ed Iv/Invasive Line Start (09/28/20 23:29) Amylase (09/28/20 23:29) Cbc With Automated Diff (09/28/20 23:29) Comprehensive Metabolic Panel (09/28/20 23:29) Lipase (09/28/20 23:29) Protime With Inr (09/28/20 23:29) Partial Thromboplastin Time (09/28/20 23:29) Ua Culture If Indicated (09/28/20 23:29) Ed Iv/Invasive Line Start (09/28/20 23:29) Ns Iv 1000 Ml (Sodium Chloride 0.9%) (09/28/20 23:30) Ondansetron Injection (Zofran Injectio (09/28/20 23:30) Ketorolac Injection (Toradol Injection) (09/28/20 23:29) Ct Abd/Pelvis Wo(Kidney Stone) (09/29/20 00:01) Abdomen/Kub 1view (09/29/20 00:01) Urine Culture (09/28/20 00:30) Ceftriaxone For Iv Use (Rocephin For I (09/29/20 01:15) Rx-Ondansetron Po (Rx-Zofran Po) (09/29/20 01:20) Medications Given in ED Current Medications Medications Dose Ordered Sig/Grant Route Start Time Stop Time Status Last Admin Dose Admin Ceftriaxone Sodium 1000 mg/ Sterile Water 10 ml @ 200 mls/hr ONCE ONCE IV 09/29/20 01:15 09/29/20 01:17 DC 09/29/20 01:18 200 MLS/HR Ondansetron HCl 4 mg ONCE ONCE IVP 09/28/20 23:30 09/28/20 23:31 DC 09/28/20 23:46 4 MG Vital Signs/I&O 09/28/20 09/29/20 23:16 02:05 Temp 37.1 36.9 Pulse 66 79 Resp 18 18 B/P (MAP) 125/73 (90) 128/77 (90) Pulse Ox 97 98 O2 Delivery Room Air Room Air Progress Progress Note : Progress Note GIVEN IV FLUIDS, ZOFRAN AND TORADOL WITH RELIEF OF SYMPTOMS UNEVENTFUL ER STAY Diagnostic Imaging Comments CT ABDOMEN/PELVIS--LEFT URETERAL STENT IN PLACE, WITH MODERATE LEFT HYDRONEPHROSIS. LEFT RETROPERITONEAL ADENOPATHY IN LEFT PARA-AORTIC REGION , WITH MULTIPLE LYMPH NODES IN LEFT RETROPERITONAL SPACE CAUSING MASS EFFECT ON LEFT URETER--PER [facility] VIA FAX AT 0046 Reviewed: Reviewed by Me Departure Communication (Admissions) Family Conversation 0125--SPOKE WITH PT'S , AND UPDATED HER ON PT'S CONDITION Impression Primary Impression: UTI (urinary tract infection) Additional Impressions: LEFT URETERAL OBSTRUCTION DUE TO MASS METASTATIC PROSTATE CANCER MILD PANCREATITIS Constipation LEFT URETERAL STENT IN PLACE Disposition: HOME, SELF-CARE Condition: Improved Departure-Patient Inst. Referrals: VAISHNAVI AGUILAR MD (PCP/Family) Primary Care Physician Patient Instructions: Constipation, Adult (DC), Pancreatitis (DC), Ureteral Stent (DC), Urinary Tract Infection, Adult (DC) Add. Discharge Instructions: CLEAR LIQUIDS--WATER, BROTH, JELLO, GATORADE NO FOOD UNTIL YOUR NAUSEA IS GONE AND YOUR BOWELS HAVE CLEARED TAKE MIRALAX EVER 4 HOURS UNTIL YOUR STOOLS ARE CLEAR, THEN USE ONCE A DAY EVERY DAY TYLENOL AND MOTRIN NEEDED FOR PAIN CONTINUE YOUR REGULAR MEDICATIONS PRESCRIBED CONTINUE CEFDINIR 300 MG TWICE A DAY PRESCRIBED FOLLOW UP WITH DR. AGUILAR ON SATURDAY FOR FURTHER CARE, RETURN TO ER IF SYMPTOMS WORSEN All discharge instructions reviewed with patient and/or family. Voiced understanding. Scripts Ondansetron (Ondansetron Odt) 8 Mg Tab.rapdis 8 MG PO Q6H, #10 TAB Prov: LORRAINE SANZ DO 09/29/20 LORRAINE SANZ DO Sep 28, 2020 23:40
[2020-09-28 23:57] LABS: BASOPHILS # (AUTO) 0.1 10^3/uL (0.0-0.1); BASOPHILS % (AUTO) 1 % (0-10); EOSINOPHILS # (AUTO) 0.2 10^3/uL (0.0-0.3); EOSINOPHILS % (AUTO) 3 % (0-10); HEMATOCRIT 34 % (40-54); HEMOGLOBIN 11.7 g/dL (13.3-17.7); LYMPHOCYTES # (AUTO) 1.6 10^3/uL (1.0-4.0); LYMPHOCYTES % (AUTO) 25 % (12-44); MEAN CORPUSCULAR HEMOGLOBIN 32 pg (25-34); MEAN CORPUSCULAR HGB CONC 34 g/dL (32-36); MEAN CORPUSCULAR VOLUME 92 fL (80-99); MEAN PLATELET VOLUME 9.5 fL (9.0-12.2); MONOCYTES # (AUTO) 0.7 10^3/uL (0.0-1.0); MONOCYTES % (AUTO) 10 % (0-12); NEUTROPHILS # (AUTO) 3.8 10^3/uL (1.8-7.8); NEUTROPHILS % (AUTO) 60 % (42-75); PLATELET COUNT 201 10^3/uL (130-400); WHITE BLOOD COUNT 6.4 10^3/uL (4.3-11.0)
[2020-09-29 00:11] LABS: INR 1.1 (0.8-1.4); PROTHROMBIN TIME PATIENT 14.8 SEC (12.2-14.7)
[2020-09-29 00:19] LABS: ALBUMIN 3.9 GM/DL (3.2-4.5); BILIRUBIN,TOTAL 0.5 MG/DL (0.1-1.0); CALCIUM 9.3 MG/DL (8.5-10.1); CREATININE SERUM 1.31 MG/DL (0.60-1.30); POTASSIUM 3.9 MMOL/L (3.6-5.0); TOTAL PROTEIN 6.4 GM/DL (6.4-8.2)
[2020-09-29 00:35] LABS: BILIRUBIN,URINE NEGATIVE (NEGATIVE); CLARITY,URINE CLEAR; COLOR,URINE YELLOW; GLUCOSE, URINE (UA) NEGATIVE (NEGATIVE); KETONES,URINE NEGATIVE (NEGATIVE); LEUKOCYTE ESTERASE ,URINE 1+ (NEGATIVE); NITRITE,URINE NEGATIVE (NEGATIVE); PH,URINE 5.5 (5-9); PROTEIN,URINE NEGATIVE (NEGATIVE)
[2020-09-29 01:01] LABS: AMORPHOUS SEDIMENT,UR FEW AMOR URATES /LPF; BACTERIA,URINE FEW /HPF
[2020-09-29] MEDS ORDERED: cefTRIAXone FOR IV USE 1,000 MG in WATER (STERILE) FOR INJECTION 10 ML IV ONE (01:15)
[2020-09-29] MEDS ORDERED: ONDA8TAB13 PO (01:20)
[2020-09-29] MEDS ORDERED: RX-ONDANSETRON 4 MG ODT (ZOFRAN) PPK #4 PO STA (01:20)
[2020-09-29 02:05] VITALS: BP 128/77
--- NOTE | 2020-09-29 06:00 | Diagnostic Imaging Report ---
EXAMINATION: CT Abdomen Pelvis without contrast. TECHNIQUE: Multiple contiguous axial images were obtained through the abdomen and pelvis without the use of intravenous contrast. All CT scans use one or more of the following dose optimizing techniques: automated exposure control, MA and/or KvP adjustment based on a patient size and exam type, or iterative reconstruction. HISTORY: Flank pain, kidney stone suspected COMPARISON: CT abdomen and pelvis 08/03/2020 FINDINGS: Lung bases: Linear atelectasis or scarring within the right lung base. Solid organs: The liver is normal. The gallbladder is normal. There is no biliary ductal dilation. Pancreas is normal. Spleen is normal. Adrenal glands are normal. There is moderate left hydronephrosis with a left ureteral stent in place. No visualized obstructing renal calculus. This is similar in appearance to prior CT of 08/03/2020 before stent placement. Right kidney is unremarkable without visualized calculus or hydronephrosis. Bowel: The stomach and small bowel are normal without obstruction. The colon and appendix are normal. Peritoneum: There is no intraperitoneal free fluid or free air. There is bulky left retroperitoneal lymphadenopathy which likely is the cause of ureteral obstruction. This is increased from 08/03/2020; the largest karen conglomerate measuring approximately 4.8 x 3.4 cm. Vasculature: Calcification of the aorta without aneurysm. Musculoskeletal: Stable small sclerotic focus within the anterior S1 vertebral body. No new suspicious osseous lesion or compression fracture. Pelvis: Multiple radiation beads within the prostate gland. The urinary bladder is normal. IMPRESSION: 1. Increased size of the left retroperitoneal lymphadenopathy which likely results in obstruction of the left ureter. 2. There is stable left hydronephrosis and hydroureter status post ureteral stent placement. 3. No visualized obstructing ureteral calculus. 4. Agree with preliminary interpretation. Dictated by: Dictated on workstation # [id number]
--- NOTE | 2020-09-29 08:28 | Diagnostic Imaging Report ---
INDICATION: Left flank pain KUB at 12:26 AM There is a left double-J ureteral stent. There are postsurgical changes from a ventral hernia repair. There are no appreciable calculi in the kidneys or ureters or bladder. There is large amount of stool in the colon which could obscure calculi. IMPRESSION: Left double-J ureteral stent appears to be in good position. Dictated by: Dictated on workstation # [id number]
== END 2020-09-29 02:05 | disposition home or self-care (01) ==
LOC: EDUNIT# 22:49 → ER 22:51
DX: N39.0 Urinary tract infection, site not specified (principal); C61 Malignant neoplasm of prostate; N13.1 Hydronephrosis with ureteral stricture, not elsewhere classified; K85.90 Acute pancreatitis without necrosis or infection, unspecified; K59.00 Constipation, unspecified; I10 Essential (primary) hypertension; E78.00 Pure hypercholesterolemia, unspecified; Z96.0 Presence of urogenital implants; Z87.891 Personal history of nicotine dependence; Z79.899 Other long term (current) drug therapy
CPT/HCPCS: 36415; 74018; 74176; 80053; 81000; 82150; 83690; 85025; 85610; 85730; 87088; 96374; 96375

== ENCOUNTER 2020-10-25 09:57 | Outpatient (RCR) | payer BC ==
[~2020-10-25 09:57] MED LIST changes: +ONDA8TAB13 PO
[2020-10-25 10:15] LABS: BASOPHILS # (AUTO) 0.1 10^3/uL (0.0-0.1); BASOPHILS % (AUTO) 1 % (0-10); EOSINOPHILS # (AUTO) 0.2 10^3/uL (0.0-0.3); EOSINOPHILS % (AUTO) 3 % (0-10); HEMATOCRIT 36 % (40-54); HEMOGLOBIN 12.3 g/dL (13.3-17.7); LYMPHOCYTES % (AUTO) 18 % (12-44); MEAN CORPUSCULAR HEMOGLOBIN 32 pg (25-34); MEAN CORPUSCULAR HGB CONC 34 g/dL (32-36); MEAN CORPUSCULAR VOLUME 94 fL (80-99); MEAN PLATELET VOLUME 9.5 fL (9.0-12.2); MONOCYTES # (AUTO) 0.5 10^3/uL (0.0-1.0); MONOCYTES % (AUTO) 9 % (0-12); NEUTROPHILS # (AUTO) 4.1 10^3/uL (1.8-7.8); NEUTROPHILS % (AUTO) 69 % (42-75); PLATELET COUNT 211 10^3/uL (130-400); WHITE BLOOD COUNT 5.9 10^3/uL (4.3-11.0)
[2020-10-25 10:35] LABS: ALBUMIN 4.1 GM/DL (3.2-4.5); BILIRUBIN,TOTAL 0.7 MG/DL (0.1-1.0); CALCIUM 9.3 MG/DL (8.5-10.1); CREATININE SERUM 1.56 MG/DL (0.60-1.30); POTASSIUM 4.4 MMOL/L (3.6-5.0); TOTAL PROTEIN 6.6 GM/DL (6.4-8.2)
== END 2020-11-16 | disposition home or self-care (01) ==
LOC: ONC 09:57
PROVIDERS: ATTEND Internal Medicine Hematology & Oncology
DX: C61 Malignant neoplasm of prostate (principal); I82.401 Acute embolism and thrombosis of unspecified deep veins of right lower extremity; E78.00 Pure hypercholesterolemia, unspecified; I10 Essential (primary) hypertension; R59.0 Localized enlarged lymph nodes; Z92.3 Personal history of irradiation
CPT/HCPCS: 80053; 84153; 85025; 99213; 99214

== ENCOUNTER 2021-01-26 12:48 | Outpatient (RCR) | payer BC ==
[2020-11-23 10:14] LABS: BASOPHILS % (AUTO) 1 % (0-10); EOSINOPHILS # (AUTO) 0.2 10^3/uL (0.0-0.3); EOSINOPHILS % (AUTO) 4 % (0-10); HEMATOCRIT 37 % (40-54); HEMOGLOBIN 12.6 g/dL (13.3-17.7); LYMPHOCYTES % (AUTO) 18 % (12-44); MEAN CORPUSCULAR HEMOGLOBIN 31 pg (25-34); MEAN CORPUSCULAR HGB CONC 34 g/dL (32-36); MEAN CORPUSCULAR VOLUME 92 fL (80-99); MONOCYTES # (AUTO) 0.5 10^3/uL (0.0-1.0); MONOCYTES % (AUTO) 10 % (0-12); NEUTROPHILS # (AUTO) 3.6 10^3/uL (1.8-7.8); NEUTROPHILS % (AUTO) 67 % (42-75); PLATELET COUNT 215 10^3/uL (130-400); WHITE BLOOD COUNT 5.3 10^3/uL (4.3-11.0)
[2020-11-23 10:33] LABS: ALBUMIN 4.1 GM/DL (3.2-4.5); BILIRUBIN,TOTAL 0.7 MG/DL (0.1-1.0); CALCIUM 10.1 MG/DL (8.5-10.1); CREATININE SERUM 1.52 MG/DL (0.60-1.30); POTASSIUM 4.2 MMOL/L (3.6-5.0); TOTAL PROTEIN 6.7 GM/DL (6.4-8.2)
[~2021-01-26 12:48] MED LIST changes: -SULF1TAB35 PO; +SULF1TAB38 PO
[2021-01-26 12:59] LABS: BASOPHILS % (AUTO) 1 % (0-10); EOSINOPHILS # (AUTO) 0.4 10^3/uL (0.0-0.3); EOSINOPHILS % (AUTO) 8 % (0-10); HEMATOCRIT 35 % (40-54); LYMPHOCYTES # (AUTO) 1.1 10^3/uL (1.0-4.0); LYMPHOCYTES % (AUTO) 23 % (12-44); MEAN CORPUSCULAR HEMOGLOBIN 32 pg (25-34); MEAN CORPUSCULAR HGB CONC 34 g/dL (32-36); MEAN CORPUSCULAR VOLUME 94 fL (80-99); MEAN PLATELET VOLUME 9.2 fL (9.0-12.2); MONOCYTES # (AUTO) 0.5 10^3/uL (0.0-1.0); MONOCYTES % (AUTO) 11 % (0-12); NEUTROPHILS # (AUTO) 2.8 10^3/uL (1.8-7.8); NEUTROPHILS % (AUTO) 57 % (42-75); PLATELET COUNT 209 10^3/uL (130-400); WHITE BLOOD COUNT 4.8 10^3/uL (4.3-11.0)
[2021-01-26 13:20] LABS: ALBUMIN 3.8 GM/DL (3.2-4.5); BILIRUBIN,TOTAL 0.6 MG/DL (0.1-1.0); CALCIUM 9.8 MG/DL (8.5-10.1); CREATININE SERUM 1.32 MG/DL (0.60-1.30); POTASSIUM 4.2 MMOL/L (3.6-5.0); TOTAL PROTEIN 6.6 GM/DL (6.4-8.2)
== END 2021-02-21 | disposition home or self-care (01) ==
LOC: ONC 12:48
PROVIDERS: ATTEND Internal Medicine Hematology & Oncology
DX: C61 Malignant neoplasm of prostate (principal); C77.2 Secondary and unspecified malignant neoplasm of intra-abdominal lymph nodes; I82.401 Acute embolism and thrombosis of unspecified deep veins of right lower extremity; E78.00 Pure hypercholesterolemia, unspecified; I10 Essential (primary) hypertension; R59.0 Localized enlarged lymph nodes; Z92.3 Personal history of irradiation; Z95.5 Presence of coronary angioplasty implant and graft; Z79.818 Long term (current) use of other agents affecting estrogen receptors and estrogen levels
CPT/HCPCS: 80053; 84153; 85025; G0463; 99213

== ENCOUNTER → 2021-03-22 | Outpatient (CLI) | payer BC ==
--- NOTE | 2021-03-22 13:34 | Diagnostic Imaging Report ---
HISTORY: Left posterior abdominal pain. Blood in urine. COMPARISON: 09/29/2020 TECHNIQUE: Frontal view of the abdomen. FINDINGS: There is a left ureteral stent is in stable position since the prior exam. No calcification is seen in the region of the kidneys. No definite calculi are seen along the expected course of the ureters. No distended loops of bowel are seen. There is no large collection of free air seen. No acute osseous abnormality is identified. There are multiple helical coils from prior abdominal hernia repair, and multiple brachytherapy seeds in the region of the prostate. IMPRESSION: 1. Stable left ureteral stent. No calculi are seen radiographically. Dictated by: Dictated on workstation # [id number]
== END ==
LOC: RAD 09:32
PROVIDERS: ATTEND Urology
DX: R10.9 Unspecified abdominal pain (principal); R31.9 Hematuria, unspecified; Z96.0 Presence of urogenital implants
CPT/HCPCS: 74018

== ENCOUNTER 2021-03-28 11:04 | Outpatient (RCR) | payer BC ==
[~2021-03-28 11:04] MED LIST changes: +TIZA-186; +TIZA-186 PO; -TIZA4TAB4; -TIZA4TAB4 PO
[2021-03-28 11:20] LABS: BASOPHILS % (AUTO) 1 % (0-10); EOSINOPHILS # (AUTO) 0.3 10^3/uL (0.0-0.3); EOSINOPHILS % (AUTO) 6 % (0-10); HEMATOCRIT 37 % (40-54); HEMOGLOBIN 12.6 g/dL (13.3-17.7); LYMPHOCYTES % (AUTO) 18 % (12-44); MEAN CORPUSCULAR HEMOGLOBIN 32 pg (25-34); MEAN CORPUSCULAR HGB CONC 34 g/dL (32-36); MEAN CORPUSCULAR VOLUME 94 fL (80-99); MEAN PLATELET VOLUME 9.1 fL (9.0-12.2); MONOCYTES # (AUTO) 0.4 10^3/uL (0.0-1.0); MONOCYTES % (AUTO) 8 % (0-12); NEUTROPHILS # (AUTO) 3.8 10^3/uL (1.8-7.8); NEUTROPHILS % (AUTO) 68 % (42-75); PLATELET COUNT 224 10^3/uL (130-400); WHITE BLOOD COUNT 5.6 10^3/uL (4.3-11.0)
[2021-03-28 11:37] LABS: ALBUMIN 3.8 GM/DL (3.2-4.5); BILIRUBIN,TOTAL 0.7 MG/DL (0.1-1.0); CALCIUM 9.9 MG/DL (8.5-10.1); CREATININE SERUM 1.28 MG/DL (0.60-1.30); POTASSIUM 4.4 MMOL/L (3.6-5.0); TOTAL PROTEIN 6.6 GM/DL (6.4-8.2)
== END 2021-06-16 | disposition home or self-care (01) ==
LOC: ONC 11:04
PROVIDERS: ATTEND Internal Medicine Hematology & Oncology
DX: C61 Malignant neoplasm of prostate (principal); C77.2 Secondary and unspecified malignant neoplasm of intra-abdominal lymph nodes; I82.401 Acute embolism and thrombosis of unspecified deep veins of right lower extremity; E78.00 Pure hypercholesterolemia, unspecified; I10 Essential (primary) hypertension; Z92.3 Personal history of irradiation; Z95.5 Presence of coronary angioplasty implant and graft; Z79.818 Long term (current) use of other agents affecting estrogen receptors and estrogen levels
CPT/HCPCS: 80053; 84153; 85025; G0463; 99213

== ENCOUNTER → 2021-06-22 | Outpatient (CLI) | payer BC, MEDICARE ==
[~2021-06-22] MED LIST changes: +HOLD METFORMIN - RECEIVED CONTRAST 20 ML VIAL IV SCH; +IOHEXOL 350 MG/ML 100 ML (OMNIPAQUE 350) VIAL IV ONE; +NS 100 ML (IVPB) BAG IV ONE
[2021-06-22] MEDS: CATHETER FLUSH 10 ML SYR IV PRN ×2 (11:12→11:26)
--- NOTE | 2021-06-22 13:10 | Diagnostic Imaging Report ---
PROCEDURE: CT abdomen and pelvis with and without contrast. TECHNIQUE: Precontrast acquisitions were acquired through the abdomen and pelvis. Multiple contiguous axial images were obtained through the abdomen and pelvis after the administration of intravenous contrast. Auto Exposure Controls were utilized during the CT exam to meet ALARA standards for radiation dose reduction. DATE: June 22, 2021. COMPARISON: CT abdomen pelvis September 29, 2020. INDICATION: 76-year-old male,. Prostate cancer. Adenopathy. FINDINGS: The visualized portions of the lung bases are clear. The heart is not enlarged. There is no pericardial effusion. The liver is unremarkable in size and contour. There is no identified liver lesion. The gallbladder is unremarkable. There is no biliary ductal dilation. The main pancreatic duct is not abnormally dilated. Unremarkable appearance of the pancreas. The spleen is normal in size. The adrenal glands are unremarkable. There is mild left renal atrophy. There is a left sided ureteral stent. There is mild left hydronephrosis. There is dilation of the left renal pelvis and upper aspect of the left ureter. The urinary bladder is grossly unremarkable in appearance. There are radiotherapy beads at the expected location of the prostate. The intestinal tract is not distended. There is no free intraperitoneal air. There is no drainable fluid collection. There is no free pelvic fluid. There are findings of prior hernia repair. There is a fat-containing umbilical hernia. There are atherosclerotic calcifications. There is a left retroperitoneal lymph node on axial image 59 which measures 2.1 cm in short axis. There is a left retroperitoneal lymph node on axial image 62 measuring 2.8 cm in short axis. There is left retroperitoneal lymph node on axial image 53 which measures 11 mm in short axis. On September 29, 2020, these retroperitoneal lymph nodes previously measured up to maximally 3.4 cm in short axis. There is a lobulated sclerotic lesion of the left iliac bone on axial image 71. This lesion is unchanged since at least February 2019 and is most consistent with benign etiology. There are multilevel degenerative changes of the spine. There is no bone lesion suspicious for metastatic disease. IMPRESSION: CT ABDOMEN AND PELVIS. 1. Abnormally enlarged left retroperitoneal lymph nodes which measure mildly reduced in size since September 29, 2020. These likely reflect sites of metastatic karen disease with partial treatment response. 2. Mild left hydronephrosis which is improved since September 29, 2020 with left-sided ureteral stent in place. Dictated by: Dictated on workstation # [id number]
--- NOTE | 2021-06-22 14:55 | Diagnostic Imaging Report ---
Exam: Nuclear medicine whole body bone scan. Date: June 22, 2021. Indication: 76-year-old male, history of prostate cancer. Evaluation for bone metastasis. Comparison: CT abdomen and pelvis June 22, 2021. PET/CT August 30, 2020. Nuclear medicine bone scan March 13, 2019. Findings: 26.2 mCi of technetium labeled MDP radiotracer was administered. Delayed subsequent whole body bone scan images were subsequently obtained. There is radiotracer uptake at the level of L5-S1 which is likely degenerative related. There is no identified radiotracer avid lesion specifically concerning for an osteoblastic bone metastasis. Impression: 1. No nuclear medicine evidence of an osteoblastic bone metastasis. Dictated by: Dictated on workstation # [id number]
== END ==
LOC: CARD 11:00
PROVIDERS: ATTEND Internal Medicine Hematology & Oncology
DX: N13.30 Unspecified hydronephrosis (principal); C61 Malignant neoplasm of prostate; R59.0 Localized enlarged lymph nodes
CPT/HCPCS: 74178; 78306; A9503

== ENCOUNTER 2021-06-27 11:02 | Outpatient (RCR) | payer MEDICARE, OTHER ==
[2021-06-22 10:14] LABS: BASOPHILS # (AUTO) 0.1 10^3/uL (0.0-0.1); BASOPHILS % (AUTO) 1 % (0-10); EOSINOPHILS # (AUTO) 0.4 10^3/uL (0.0-0.3); EOSINOPHILS % (AUTO) 8 % (0-10); HEMATOCRIT 38 % (40-54); HEMOGLOBIN 13.3 g/dL (13.3-17.7); LYMPHOCYTES # (AUTO) 1.3 10^3/uL (1.0-4.0); LYMPHOCYTES % (AUTO) 26 % (12-44); MEAN CORPUSCULAR HEMOGLOBIN 33 pg (25-34); MEAN CORPUSCULAR HGB CONC 35 g/dL (32-36); MEAN CORPUSCULAR VOLUME 94 fL (80-99); MEAN PLATELET VOLUME 9.1 fL (9.0-12.2); MONOCYTES # (AUTO) 0.5 10^3/uL (0.0-1.0); MONOCYTES % (AUTO) 9 % (0-12); NEUTROPHILS # (AUTO) 2.8 10^3/uL (1.8-7.8); NEUTROPHILS % (AUTO) 55 % (42-75); PLATELET COUNT 221 10^3/uL (130-400); WHITE BLOOD COUNT 5.1 10^3/uL (4.3-11.0)
[2021-06-22 10:29] LABS: ALBUMIN 3.9 GM/DL (3.2-4.5); BILIRUBIN,TOTAL 0.5 MG/DL (0.1-1.0); CALCIUM 9.7 MG/DL (8.5-10.1); CREATININE SERUM 1.46 MG/DL (0.60-1.30); POTASSIUM 4.5 MMOL/L (3.6-5.0); TOTAL PROTEIN 6.7 GM/DL (6.4-8.2)
[~2021-06-27 11:02] MED LIST changes: -HOLD METFORMIN - RECEIVED CONTRAST 20 ML VIAL IV SCH; -IOHEXOL 350 MG/ML 100 ML (OMNIPAQUE 350) VIAL IV ONE; -NS 100 ML (IVPB) BAG IV ONE
== END 2021-07-17 | disposition home or self-care (01) ==
LOC: ONC 11:02
PROVIDERS: ATTEND Internal Medicine Hematology & Oncology
DX: C61 Malignant neoplasm of prostate (principal); I10 Essential (primary) hypertension; E78.00 Pure hypercholesterolemia, unspecified; R59.0 Localized enlarged lymph nodes
CPT/HCPCS: 80053; 84153; 85025; 99213

== ENCOUNTER 2021-07-03 11:58 | Emergency (ER) | payer BC, MEDICARE, OTHER ==
[~2021-07-03] VITALS: Ht 177 cm; Wt 95.2 kg
--- NOTE | 2021-07-03 12:31 | ED Lower Extremity ---
General Chief Complaint: Lower Extremity Stated Complaint: SUSPECTED DVT,R LEG PAIN Source: patient Exam Limitations: no limitations (LEANNA ANN APRN) History of Present Illness Date Seen by Provider: Jul 03, 2021 Time Seen by Provider: 12:19 Initial Comments This is a 76-year-old male who presented to the ER via POV with complaints of right lower extremity pain swelling x3 days. States has a history of prostate cancer and DVT of his right lower extremity. Was diagnosed with a DVT last year and was on Eliquis for approximately 5 months. States he discontinued his Danya anali due to bleeding from ureteral stent. No fever, chills, REYES, cough, shortness of breath, chest pain, nausea, vomiting, diarrhea, abdominal pain. (LEANNA ANN APRN) Allergies and Home Medications Allergies Coded Allergies: No Known Drug Allergies (Unverified , 08/19/20) Patient Home Medication List Home Medication List Reviewed: Yes (LEANNA ANN APRN) Bicalutamide (Casodex) 50 Mg Tablet, 50 MG PO DAILY Prescribed by: BRIT WARREN on 03/05/19 1308 Cholecalciferol (Vitamin D3) (Vitamin D3) 1,000 Unit Tablet, 1,000 UNIT PO DAILY, (Reported) Entered as Reported by: ARSENIO GANT on 04/05/17 0936 Docusate Sodium (Dulcolax Stool Softener) 100 Mg Capsule, 100 MG PO DAILY, (Reported) Entered as Reported by: LESLY SCHROEDER on 08/24/20 0927 Irbesartan (Irbesartan) 300 Mg Tablet, 300 MG PO DAILY, (Reported) Entered as Reported by: ARSENIO GANT on 04/05/17 0933 Megestrol Acetate (Megestrol Acetate) 20 Mg Tablet, 20 MG PO BID, (Reported) Entered as Reported by: LESLY SCHROEDER on 08/24/20 0927 Multivitamin (Multiple Vitamins) 1 Each Tablet, 1 EACH PO DAILY, (Reported) Entered as Reported by: HENNA RUTLEDGE on 04/16/18 1028 Ondansetron (Ondansetron Odt) 8 Mg Tab.rapdis, 8 MG PO Q6H Prescribed by: LORRAINE SANZ on 09/29/20 0120 Phenazopyridine HCl (Pyridium) 200 Mg Tablet, 1 TAB PO TID Prescribed by: LESLY SCHROEDER on 08/24/20 1235 Simvastatin (Simvastatin) 40 Mg Tablet, 40 MG PO DAILY, (Reported) Entered as Reported by: ARSENIO GANT on 04/05/17 0933 Sulfamethoxazole/Trimethoprim (Bactrim Ds Tablet) 1 Each Tablet, 1 TAB PO BID Prescribed by: LESLY SCHROEDER on 08/24/20 1235 Tramadol HCl (Tramadol HCl) 50 Mg Tablet, 1-2 TAB PO Q4H PRN for PAIN-MODERATE (5-7) Prescribed by: LESLY SCHROEDER on 08/24/20 1235 Review of Systems Constitutional: no symptoms reported EENTM: no symptoms reported Respiratory: no symptoms reported Cardiovascular: no symptoms reported Gastrointestinal: no symptoms reported Genitourinary: no symptoms reported Musculoskeletal: no symptoms reported Skin: see HPI Psychiatric/Neurological: No Symptoms Reported (LEANNA ANN APRN) Past Kgoxlbn-Ckpnrg-Izekrw Hx Patient Social History Tobacco Use?: No Substance use?: No Alcohol Use?: No Pt feels they are or have been: No (LEANNA ANN APRN) Immunizations Up To Date Tetanus Booster (TDap): More than 5yrs First/Initial COVID19 Vaccinat: 08/15/20 Second COVID19 Vaccination Win: 08/15/20 Third COVID19 Vaccination Date: 08/15/20 COVID19 Vaccine Pasta Maker: maría (LEANNA ANN APRN) Seasonal Allergies Seasonal Allergies: No (LEANNA ANN APRN) Past Medical History Surgery/Hospitalization HX: pmh: htn, high cholesteral, prostate ca, dvt Surgeries: Yes (LEFT INGUINAL HERNIA X2, R INGUINAL HERNIA; LEFT URETERAL STENT 09/15/20) Abdominal, Adenoidectomy, Renal, Tonsillectomy, Vasectomy Respiratory: No Currently Using CPAP: No Currently Using BIPAP: No Cardiac: Yes High Cholesterol, Hypertension Neurological: No Reproductive Disorders: No Sexually Transmitted Disease: No HIV/AIDS: No Genitourinary: Yes (PROSTATE CANCER DX 01/2017) Prostate Problems Gastrointestinal: Yes (HERNIA REPAIRS) Abdominal Hernia, Diverticulosis Musculoskeletal: Yes (sciatica) Arthritis Endocrine: No HEENT: No Loss of Vision: Bilateral Hearing Impairment: Denies Cancer: Yes Prostate, Skin Did You Recieve Any Treatments: Yes What Type of Treatment Did You: Radiation Psychosocial: No Integumentary: Yes (SKIN CANCER) Blood Disorders: No Adverse Reaction/Blood Tranf: No (LEANNA ANN APRN) Physical Exam Vital Signs Vital Signs - First Documented 07/03/21 12:22 Temp 35.7 Pulse 85 Resp 16 B/P (MAP) 152/78 (102) Pulse Ox 98 (ANDERSON HESTER MD) Vital Signs Capillary Refill : (LEANNA ANN APRN) Height, Weight, BMI Height: 5'11.00" Weight: 216lbs. 0.0oz. 97.886082sp; 28.00 BMI Method:Stated General Appearance: WD/WN, no apparent distress HEENT: normal ENT inspection, pharynx normal Neck: full range of motion, normal inspection Cardiovascular: regular rate, rhythm, no murmur Respiratory: lungs clear, normal breath sounds, no respiratory distress Gastrointestinal: normal bowel sounds, non tender, soft, no organomegaly, no pulsatile mass Back: normal inspection Hips: bilateral hip non-tender, bilateral hip normal inspection, bilateral hip normal range of motion Legs: bilateral leg non-tender, bilateral leg normal inspection, bilateral leg normal range of motion; right leg pain, right leg soft tissue tenderness; bilateral leg other (no erythema or warmth ) Knees: bilateral knee non-tender, bilateral knee normal inspection, bilateral knee normal range of motion Feet: right foot ecchymosis Neurologic/Tendon: normal sensation, normal motor functions, normal tendon functions Neurologic/Psychiatric: no motor/sensory deficits, alert, normal mood/affect, oriented x 3 Skin: normal color, warm/dry (LEANNA ANN APRN) Progress/Results/Core Measures Results/Orders Vital Signs/I&O 07/03/21 07/03/21 12:22 14:03 Temp 35.7 35.7 Pulse 85 85 Resp 16 16 B/P (MAP) 152/78 (102) 152/78 Pulse Ox 98 98 (ANDERSON HESTER MD) Progress Progress Note : Progress Note Patient examined and in no acute distress. Breathing easy. US neg for DVT. Noted to have superficial thrombophlebitis. Will start with NSAIDS and close follow up with pcp due to his history of GI bleed with anticoagulation. Discharge plan reviewed with patient and spouse, they are agreeable with plan. (LEANNA ANN APRN) Diagnostic Imaging Diagonstic Imaging: Ultrasound Plain Films/CT/US/NM/MRI: leg Comments [facility] [place], [place] NAME: IVETT BABCOCK [employer] REC#: [id number] PT STATUS: DEP ER : 1945 PHYSICIAN: LEANNA ANN APRN ADMIT DATE: 07/03/21/ER Signed Date of Exam:07/03/21 US VENOUS LOWER EXT RT PROCEDURE: US right lower extremity venous. TECHNIQUE: Multiple real-time grayscale images were obtained over the right lower extremity in various projections. Additional spectral analysis and color Doppler duplex images were also obtained. INDICATION: Right lower extremity pain and swelling. FINDINGS: There is no evidence of right lower extremity DVT. Right lower extremity deep venous system shows normal compressibility with normal response to augmentation and Valsalva. There are some thrombosed varices identified in the medial calf consistent with superficial thrombophlebitis. No fluid collection is seen. IMPRESSION: 1. No evidence of right lower extremity DVT. 2. Findings consistent with superficial thrombophlebitis involving the medial right calf. Dictated by: Dictated on workstation # [id number] Dict: 07/03/21 1312 Trans: 07/03/21 1601 [id number] Interpreted by: MARGY JARRETT MD Electronically signed by: MARGY JARRETT MD 07/03/21 1601 Reviewed: Reviewed by Me (LEANNA ANN APRN) Departure Impression Primary Impression: Superficial thrombophlebitis Disposition: HOME, SELF-CARE Condition: Improved Departure-Patient Inst. Decision time for Depature: 13:50 (LEANNA ANN APRN) Referrals: VAISHNAVI AGUILAR MD (PCP/Family) Primary Care Physician Patient Instructions: PHLEBITIS-SUPERFICIAL Add. Discharge Instructions: Plan: 1. Follow up with your doctor later this week. 2. You can take Ibuprofen for pain per package. 3. Keep your legs elevated and move them frequently while elevated. 4. Wear compression stockings while awake. 5. Return for any new, concerning, or worsening symptoms. All discharge instructions reviewed with patient and/or family. Voiced understanding. ATTENDING PHYSICIAN NOTE: I was physically present as attending physician in the emergency department during the care of this patient, but I was not directly involved in the decision making or delivery of care for this patient. (ANDERSON HESTER MD) Copy Copies To 1: VAISHNAVI AGUILAR MD, STORMY D APRN Jul 03, 2021 12:31 ANDERSON HESTER MD Jul 09, 2021 06:50
--- NOTE | 2021-07-03 13:19 | Diagnostic Imaging Report ---
PROCEDURE: US right lower extremity venous. TECHNIQUE: Multiple real-time grayscale images were obtained over the right lower extremity in various projections. Additional spectral analysis and color Doppler duplex images were also obtained. INDICATION: Right lower extremity pain and swelling. FINDINGS: There is no evidence of right lower extremity DVT. Right lower extremity deep venous system shows normal compressibility with normal response to augmentation and Valsalva. There are some thrombosed varices identified in the medial calf consistent with superficial thrombophlebitis. No fluid collection is seen. IMPRESSION: 1. No evidence of right lower extremity DVT. 2. Findings consistent with superficial thrombophlebitis involving the medial right calf. Dictated by: Dictated on workstation # [id number]
[2021-07-03 14:03] VITALS: BP 152/78
== END 2021-07-03 14:03 | disposition home or self-care (01) ==
LOC: EDUNIT# 11:58 → ER 12:00
DX: I80.9 Phlebitis and thrombophlebitis of unspecified site (principal); I10 Essential (primary) hypertension; E78.00 Pure hypercholesterolemia, unspecified; Z79.899 Other long term (current) drug therapy

== ENCOUNTER → 2021-10-26 | Outpatient (CLI) | payer MEDICARE, OTHER ==
[~2021-10-26] MED LIST changes: -HYOS0.3710; +HYOS0.3738
--- NOTE | 2021-10-26 15:28 | Diagnostic Imaging Report ---
INDICATION: Carcinoma of the prostate, complaining of left hip pain. COMPARISON: Study is compared with exams of 06/22/2021. TECHNIQUE: This patient received an intravenous dose of 23.8 mCi technetium-99m MDP, and after 3 hours, whole body planar imaging was performed. FINDINGS: Sonographic features suggest at least mild left hydronephrosis. Soft tissue uptake is otherwise normal. There is no suspicious uptake in the axial or appendicular skeleton that would suggest scintigraphic evidence for metastatic disease or fracture. IMPRESSION: 1. Likely left hydronephrosis. 2. No findings of bony metastases. Dictated by: Dictated on workstation # [id number]
== END ==
LOC: CARD 11:00
PROVIDERS: ATTEND Internal Medicine Hematology & Oncology
DX: C61 Malignant neoplasm of prostate (principal); C77.2 Secondary and unspecified malignant neoplasm of intra-abdominal lymph nodes; M25.551 Pain in right hip
CPT/HCPCS: 78306; A9503

== ENCOUNTER → 2022-05-17 | Outpatient (CLI) | payer MEDICARE, OTHER ==
--- NOTE | 2022-05-17 15:30 | Diagnostic Imaging Report ---
PROCEDURE: MRI lumbar spine. TECHNIQUE: Multiplanar, multisequence MRI of the lumbar spine was performed without contrast. INDICATION: Lumbar radiculopathy to the right. COMPARISON: No priors for direct comparison; however, correlated with CT of the lumbar 05/10/2017. FINDINGS: There is dilatation of the partially visualized left renal collecting system and pelvis as well as its ureter with a tubular filling defect in the left ureter. It is presumed to reflect a ureteral stent; correlate clinically, however. No paravertebral mass, hemorrhage, or fluid collection. The conus appeared normal. No acute lumbar or sacral marrow signal pathology found. Vertebral statures are within normal limits. L1-L2: Osteophyte disc material minimally effaces the ventral thecal sac, but no substantial canal stenosis. There is mild left foraminal narrowing. L2-L3: There is thickened ligamenta flava, facet arthrosis, disc bulge, and endplate osteophytes which result in mild canal stenosis. There is moderate right and moderate left foraminal stenosis. L3-L4: Disc bulge, endplate osteophytes, and facet arthrosis result in moderate spinal canal stenosis. There is severe left and moderate right neural foraminal narrowing. L4-L5: Osteophyte disc material and facet arthrosis result in mild spinal canal stenosis. There is wjio-ie-opnzoauq right and xgcttwrm-aw-xwkjxq left foraminal narrowing. L5-S1: Disc bulge, endplate osteophytes, and facet arthrosis result in mild spinal canal stenosis. There is severe right and qhexdsjc-qp-rkhfqi left foraminal narrowing. IMPRESSION: 1. Substantial degrees of multilevel foraminal greater than canal stenoses owing to disc material and endplate osteophytes, detailed level by level above. 2. Likely stented left hydronephrosis. 3. No acute appearing lumbar bony pathology. Normal alignment. Dictated by: Dictated on workstation # [id number]
== END ==
LOC: RAD 12:39
PROVIDERS: ATTEND Internal Medicine
DX: M47.26 Other spondylosis with radiculopathy, lumbar region (principal); M47.817 Spondylosis without myelopathy or radiculopathy, lumbosacral region; M51.16 Intervertebral disc disorders with radiculopathy, lumbar region; M51.27 Other intervertebral disc displacement, lumbosacral region; M48.02 Spinal stenosis, cervical region; M48.07 Spinal stenosis, lumbosacral region; N13.30 Unspecified hydronephrosis
CPT/HCPCS: 72148

== ENCOUNTER 2022-05-24 10:50 | Inpatient (IN) | payer MEDICARE, OTHER ==
[~2022-05-24] VITALS: Ht 177 cm; Wt 99.5 kg
[2022-05-24] MEDS ORDERED: ACETAMINOPHEN 500 MG TAB (TYLENOL) PO ONE (11:15)
[2022-05-24] MEDS ORDERED: ONDANSETRON 4 MG/2 ML (SDV) Z0FRAN IVP ONE (11:15)
[2022-05-24 11:21] LABS: BASOPHILS % (AUTO) 0 % (0-10); EOSINOPHILS % (AUTO) 0 % (0-10); HEMATOCRIT 34 % (40-54); HEMOGLOBIN 11.8 g/dL (13.3-17.7); LYMPHOCYTES # (AUTO) 0.3 10^3/uL (1.0-4.0); LYMPHOCYTES % (AUTO) 34 % (12-44); MEAN CORPUSCULAR HEMOGLOBIN 32 pg (25-34); MEAN CORPUSCULAR HGB CONC 35 g/dL (32-36); MEAN CORPUSCULAR VOLUME 92 fL (80-99); MEAN PLATELET VOLUME 9.7 fL (9.0-12.2); MONOCYTES # (AUTO) 0.4 10^3/uL (0.0-1.0); MONOCYTES % (AUTO) 50 % (0-12); NEUTROPHILS # (AUTO) 0.1 10^3/uL (1.8-7.8); NEUTROPHILS % (AUTO) 13 % (42-75); PLATELET COUNT 230 10^3/uL (130-400)
[2022-05-24 11:24] LABS: ALBUMIN 3.5 GM/DL (3.2-4.5); POTASSIUM 4.3 MMOL/L (3.6-5.0)
[2022-05-24 11:25] LABS: CALCIUM 9.4 MG/DL (8.5-10.1)
[2022-05-24 11:26] LABS: TOTAL PROTEIN 6.5 GM/DL (6.4-8.2)
[2022-05-24 11:28] LABS: BILIRUBIN,TOTAL 0.8 MG/DL (0.1-1.0); INR 1.1 (0.8-1.4); PROTHROMBIN TIME PATIENT 14.8 SEC (12.2-14.7)
--- NOTE | 2022-05-24 11:28 | Diagnostic Imaging Report ---
EXAMINATION: Chest 1 view HISTORY: Fever COMPARISON: None available. FINDINGS: Heart size and pulmonary vasculature are normal. There are low lung volumes with elevation right hemidiaphragm. Likely right azygos lobe is present. No focal consolidation, pleural effusion, or pneumothorax. The osseous structures are intact. IMPRESSION: 1. Low lung volumes without other acute radiographic abnormality in the chest. Dictated by: Dictated on workstation # [id number]
[2022-05-24 11:30] LABS: CREATININE SERUM 1.8 MG/DL (0.60-1.30); WHITE BLOOD COUNT 0.9 10^3/uL (4.3-11.0)
[2022-05-24 11:57] LABS: ATYPICAL LYMPHOCYTES 1 %; LYMPHOCYTES % (MANUAL) 35 %; MONOCYTES % (MANUAL) 50 %; NEUTROPHILS % (MANUAL) 14 %; RBC MORPH NORMAL
[2022-05-24] MEDS ORDERED: NS IV 1000 ML 1,000 ML IV SCH ×2 (14:00→15:00)
[2022-05-24 14:12] LABS: BILIRUBIN,URINE NEGATIVE (NEGATIVE); CLARITY,URINE SL CLOUDY; COLOR,URINE ORANGE; GLUCOSE, URINE (UA) NEGATIVE (NEGATIVE); KETONES,URINE NEGATIVE (NEGATIVE); LEUKOCYTE ESTERASE ,URINE NEGATIVE (NEGATIVE); NITRITE,URINE NEGATIVE (NEGATIVE); PH,URINE 5.5 (5-9); PROTEIN,URINE 1+ (NEGATIVE)
[2022-05-24 14:20] LABS: AMORPHOUS SEDIMENT,UR FEW AMOR URATES /LPF; BACTERIA,URINE NEGATIVE /HPF
[2022-05-24] MEDS ORDERED: NS IV 1000 ML 1,000 ML ONE (14:46)
[2022-05-24] MEDS ORDERED: CEFEPIME INJECTION 2,000 MG in NS (IVPB) 50 ML IV ONE (15:00)
--- NOTE | 2022-05-24 15:13 | ED General ---
General Chief Complaint: Fever-Adult/Adol Stated Complaint: GENERALIZED WEAKNESS Nursing Triage Note: PT ARRIVED PER EMS, PT CO OF SHIVERS, FREQUENT FALLS, INCREASED WEAKNESS. PT IS A AND O. PT HAS SOME BRUISING NOTED ON L HIP. Source of Information: Patient, Family Exam Limitations: Other (Mentation dulled) History of Present Illness Date Seen by Provider: May 24, 2022 Time Seen by Provider: 10:55 Initial Comments This 77-year-old gentleman with metastatic prostate cancer on chemotherapy presents to the emergency room with fever and weakness. He also had a fall a few days ago in which he struck his head. He has some bruising on his hips and torso. He is alert and oriented. He is febrile. He feels week and lightheaded. Dr. Bennett is his oncologist. Allergies and Home Medications Allergies Coded Allergies: No Known Drug Allergies (Unverified , 08/19/20) Patient Home Medication List Home Medication List Reviewed: Yes Calcium Carb/Vitamin D3/Vit K1 (Viactiv 650 mg-12.5 Mcg Chew) 650 Mg Calcium- 12.5 Mcg-40 Mcg Tab.chew, 2 EACH PO 1200, (Reported) Entered as Reported by: RODGER REBOLLAR on 05/25/221116 Last Action: Reviewed Cyclobenzaprine HCl (Cyclobenzaprine HCl) 10 Mg Tablet, 10 MG PO HS PRN for MUSCLE SPASMS, (Reported) Entered as Reported by: RODGER REBOLLAR on 05/25/221116 Last Action: Reviewed Dexamethasone (Dexamethasone) 4 Mg Tablet, 8 MG PO BID PRN for DAY BEFORE, OF & AFTER TX, (Reported) Entered as Reported by: RODGER REBOLLAR on 05/25/221116 Last Action: Reviewed Gabapentin (Neurontin) 300 Mg Capsule, 300 MG PO TID, (Reported) Entered as Reported by: RODGER REBOLLAR on 05/25/221116 Last Action: Reviewed Glucosamine HCl (Glucosamine HCl) 500 Mg Tablet, 1,000 MG PO 1200, (Reported) Entered as Reported by: RODGER REBOLALR on 05/25/221116 Last Action: Reviewed Irbesartan/Hydrochlorothiazide (Irbesartan-Hctz 300-12.5 mg Tb) 300 Mg-12.5 Mg Tablet, 1 EA PO DAILY, (Reported) Entered as Reported by: RODGER REBOLLAR on 05/25/221116 Last Action: Reviewed Megestrol Acetate (Megestrol Acetate) 20 Mg Tablet, 20 MG PO BID, (Reported) Entered as Reported by: LESLY SCHROEDER on 08/24/20926 Last Action: Reviewed Naproxen Sodium (Aleve) 220 Mg Tablet, 220 MG PO BID, (Reported) Entered as Reported by: RODGER REBOLLAR on 05/25/221116 Last Action: Reviewed Ondansetron HCl (Ondansetron HCl) 8 Mg Tablet, 8 MG PO Q8H PRN for NAUSEA/VOMITING-1ST LINE, (Reported) Entered as Reported by: RODGER REBOLLAR on 05/25/221116 Last Action: Reviewed Oxybutynin Chloride (Oxybutynin Chloride ER) 10 Mg Tab.er.24, 10 MG PO DAILY, (Reported) Entered as Reported by: RODGER REBOLLAR on 05/25/221116 Last Action: Reviewed Pantoprazole Sodium (Pantoprazole Sodium) 40 Mg Tablet.dr, 40 MG PO DAILY PRN for HEARTBURN, (Reported) Entered as Reported by: RODGER REBOLLAR on 05/25/221116 Last Action: Reviewed Prednisone (Prednisone) 5 Mg Tablet, 5 MG PO BID, (Reported) Entered as Reported by: RODGER REBOLLAR on 05/25/221116 Last Action: Reviewed Simvastatin (Simvastatin) 40 Mg Tablet, 40 MG PO HS, (Reported) Entered as Reported by: ARSENIO GANT on 04/05/17 0933 Last Action: Reviewed Venlafaxine HCl (Venlafaxine HCl ER) 75 Mg Cap.er.24h, 75 MG PO DAILY, (Repor ayala) Entered as Reported by: RODGER REBOLLAR on 05/25/221116 Last Action: Reviewed Discontinued Medications Bicalutamide (Casodex) 50 Mg Tablet, 50 MG PO DAILY Discontinued Reason: No Longer Taking Prescribed by: BRIT WARREN on 03/05/19 1308 Last Action: Discontinued Cholecalciferol (Vitamin D3) (Vitamin D3) 1,000 Unit Tablet, 1,000 UNIT PO DAILY, (Reported) Discontinued Reason: No Longer Taking Entered as Reported by: ARSENIO GANT on 04/05/17 0947 Last Action: Discontinued Docusate Sodium (Dulcolax Stool Softener) 100 Mg Capsule, 100 MG PO DAILY, (Reported) Discontinued Reason: No Longer Taking Entered as Reported by: LESLY SCHROEDER on 08/24/20 0927 Last Action: Discontinued Irbesartan (Irbesartan) 300 Mg Tablet, 300 MG PO DAILY, (Reported) Discontinued Reason: No Longer Taking Entered as Reported by: ARSENIO GANT on 04/05/17 0933 Last Action: Discontinued Multivitamin (Multiple Vitamins) 1 Each Tablet, 1 EACH PO DAILY, (Reported) Discontinued Reason: No Longer Taking Entered as Reported by: HENNA RUTLEDGE on 04/16/18 1028 Last Action: Discontinued Ondansetron (Ondansetron Odt) 8 Mg Tab.rapdis, 8 MG PO Q6H Discontinued Reason: No Longer Taking Prescribed by: LORRAINE SANZ on 09/29/20 0120 Last Action: Discontinued Phenazopyridine HCl (Pyridium) 200 Mg Tablet, 1 TAB PO TID Discontinued Reason: No Longer Taking Prescribed by: LESLY SCHROEDER on 08/24/20 1235 Last Action: Discontinued Sulfamethoxazole/Trimethoprim (Bactrim Ds Tablet) 1 Each Tablet, 1 TAB PO BID Discontinued Reason: No Longer Taking Prescribed by: LESLY SCHROEDER on 08/24/20 1235 Last Action: Discontinued Tramadol HCl (Tramadol HCl) 50 Mg Tablet, 1-2 TAB PO Q4H PRN for PAIN-MODERATE (5-7) Discontinued Reason: No Longer Taking Prescribed by: LESLY SCHROEDER on 08/24/20 1235 Last Action: Discontinued Review of Systems Review of Systems Constitutional: see HPI EENTM: no symptoms reported Respiratory: no symptoms reported Cardiovascular: no symptoms reported Gastrointestinal: no symptoms reported Genitourinary: see HPI Musculoskeletal: no symptoms reported Skin: no symptoms reported Psychiatric/Neurological: No Symptoms Reported Hematologic/Lymphatic: No Symptoms Reported Immunological/Allergic: no symptoms reported Past Fikxcnq-Fzcomr-Soaxye Hx Patient Social History Tobacco Use?: No Substance use?: No Alcohol Use?: No Pt feels they are or have been: No Immunizations Up To Date Tetanus Booster (TDap): More than 5yrs Influenza Vaccine Up-to-Date: Yes; Up-to-Date First/Initial COVID19 Vaccinat: 08/15/20 Second COVID19 Vaccination Win: 08/15/20 Third COVID19 Vaccination Date: 08/15/20 Seasonal Allergies Seasonal Allergies: No Past Medical History Surgery/Hospitalization HX: pmh: htn, high cholesteral, prostate ca, dvt Surgeries: Yes (LEFT INGUINAL HERNIA X2, R INGUINAL HERNIA; LEFT URETERAL STENT 09/15/20) Abdominal, Adenoidectomy, Renal, Tonsillectomy, Vasectomy Respiratory: No Currently Using CPAP: No Currently Using BIPAP: No Cardiac: Yes High Cholesterol, Hypertension Neurological: No Reproductive Disorders: No Sexually Transmitted Disease: No HIV/AIDS: No Genitourinary: Yes (PROSTATE CANCER DX 01/2017) Prostate Problems Gastrointestinal: Yes (HERNIA REPAIRS) Abdominal Hernia, Diverticulosis Musculoskeletal: Yes (sciatica) Arthritis Endocrine: No HEENT: No Loss of Vision: Bilateral Hearing Impairment: Denies Cancer: Yes Prostate (Metastatic), Skin Did You Recieve Any Treatments: Yes What Type of Treatment Did You: Radiation Psychosocial: No Integumentary: Yes (SKIN CANCER) Blood Disorders: No Adverse Reaction/Blood Tranf: No Physical Exam-Suspected Sepsis Physical Exam Vital Signs Vital Signs - First Documented 05/24/22 05/24/22 05/24/22 10:50 14:35 21:18 Temp 39.5 Pulse 133 Resp 24 B/P (MAP) 130/80 (97) Pulse Ox 95 O2 Delivery Nasal Cannula O2 Flow Rate 2.00 FiO2 28 Capillary Refill : Less Than 3 Seconds Blood Pressure Mean: 97 Height, Weight, BMI Height: 5'11.00" Weight: 216lbs. 0.0oz. 97.938360tz; 33.00 BMI Method:Stated General Appearance: No Apparent Distress, WD/WN HEENT: PERRL/EOMI, Normal ENT Inspection, Other (oropharynx) Neck: Normal Inspection Respiratory: Lungs Clear, Normal Breath Sounds, No Accessory Muscle Use Cardiovascular: No Edema, No Murmur, Tachycardia Gastrointestinal: Normal Bowel Sounds, Non Tender, Soft, Other (few scattered bruises on trunk) Extremity: Normal Inspection, No Pedal Edema Neurologic/Psychiatric: Alert, Oriented x3 (mentation sluggish but alert and oriented), No Motor/Sensory Deficits, Normal Mood/Affect, telephone station installer II-XII Norm as Tested, Other (generalized weakness) Skin: normal color, warm/dry, ecchymosis (scattered bruising on abdomen and hips without significant pain or tenderness) Focused Exam Sepsis Stage: Septic Shock Possible Source: Unknown Lactate Level 05/24/22 11:00: Lactic Acid Level 1.94 Time of Focused Exam: 15:00 Respiratory: Lungs Clear Cardiovascular: No Edema, No Murmur, Tachycardia Skin: normal color, warm/dry Within 3hrs of presentation: Admin fluids, Admin 30ml/kg IBW due to BMI>30, Admin ABX, Blood cultures prior to ABX's, Focus exam, Lactate level, Vasopressin therapy Progress/Results/Core Measures Suspected Sepsis SIRS Temperature: Pulse: 133 Respiratory Rate: 24 Laboratory Tests 05/24/22 11:00: White Blood Count 0.9*L 05/25/22 04:32: White Blood Count 2.7L Blood Pressure 130 /80 Mean: 97 05/24/22 11:00: Lactic Acid Level 1.94 Laboratory Tests 05/24/22 11:00: Creatinine 1.80H, INR Comment 1.1, Platelet Count 230, Total Bilirubin 0.8 05/25/22 04:32: Creatinine 1.49H, Platelet Count 225, Total Bilirubin 0.5 Results/Orders Lab Results Laboratory Tests Test 05/24/22 11:00 05/24/22 13:55 05/25/22 04:32 Range/Units White Blood Count 0.9 *L 2.7 L 4.3-11.0 10^3/uL Red Blood Count 3.67 L 3.04 L 4.30-5.52 10^6/uL Hemoglobin 11.8 L 9.9 L 13.3-17.7 g/dL Hematocrit 34 L 28 L 40-54 % Mean Corpuscular Volume 92 92 80-99 fL Mean Corpuscular Hemoglobin 32 33 25-34 pg Mean Corpuscular Hemoglobin Concent 35 35 32-36 g/dL Red Cell Distribution Width 12.1 12.4 10.0-14.5 % Platelet Count 230 225 130-400 10^3/uL Mean Platelet Volume 9.7 10.1 9.0-12.2 fL Immature Granulocyte % (Auto) 3 2 % Neutrophils (%) (Auto) 13 L 32 L 42-75 % Lymphocytes (%) (Auto) 34 28 12-44 % Monocytes (%) (Auto) 50 H 38 H 0-12 % Eosinophils (%) (Auto) 0 0 0-10 % Basophils (%) (Auto) 0 0 0-10 % Neutrophils # (Auto) 0.1 L 0.8 L 1.8-7.8 10^3/uL Lymphocytes # (Auto) 0.3 L 0.8 L 1.0-4.0 10^3/uL Monocytes # (Auto) 0.4 1.0 0.0-1.0 10^3/uL Eosinophils # (Auto) 0.0 0.0 0.0-0.3 10^3/uL Basophils # (Auto) 0.0 0.0 0.0-0.1 10^3/uL Immature Granulocyte # (Auto) 0.0 0.1 0.0-0.1 10^3/uL Neutrophils % (Manual) 14 % Lymphocytes % (Manual) 35 % Monocytes % (Manual) 50 % Atypical Lymphocytes 1 % Blood Morphology Comment NORMAL Prothrombin Time 14.8 H 12.2-14.7 SEC INR Comment 1.1 0.8-1.4 Activated Partial Thromboplast Time 28 24-35 SEC Sodium Level 134 L 138 135-145 MMOL/L Potassium Level 4.3 3.9 3.6-5.0 MMOL/L Chloride Level 100 109 H 98-107 MMOL/L Carbon Dioxide Level 26 20 L 21-32 MMOL/L Anion Gap 8 9 5-14 MMOL/L Blood Urea Nitrogen 40 H 33 H 7-18 MG/DL Creatinine 1.80 H 1.49 H 0.60-1.30 MG/DL Estimat Glomerular Filtration Rate 38 47 BUN/Creatinine Ratio 22 22 Glucose Level 114 H 122 H 70-105 MG/DL Lactic Acid Level 1.94 0.50-2.00 MMOL/L Calcium Level 9.4 8.8 8.5-10.1 MG/DL Corrected Calcium 9.8 9.8 8.5-10.1 MG/DL Total Bilirubin 0.8 0.5 0.1-1.0 MG/DL Aspartate Amino Transf (AST/SGOT) 67 H 63 H 5-34 U/L Alanine Aminotransferase (ALT/SGPT) 35 39 0-55 U/L Alkaline Phosphatase 71 67 40-136 U/L C-Reactive Protein High Sensitivity 23.22 H 0.00-0.50 MG/DL Total Protein 6.5 5.2 L 6.4-8.2 GM/DL Albumin 3.5 2.7 L 3.2-4.5 GM/DL Procalcitonin 1.35 H <0.10 NG/ML Influenza Type A (RT-PCR) Not Detected Not Detecte Influenza Type B (RT-PCR) Not Detected Not Detecte SARS-CoV-2 RNA (RT-PCR) Not Detected Not Detecte Urine Color ORANGE Urine Clarity SL CLOUDY Urine pH 5.5 5-9 Urine Specific [place] 1.020 1.016-1.022 Urine Protein 1+ H NEGATIVE Urine Glucose (UA) NEGATIVE NEGATIVE Urine Ketones NEGATIVE NEGATIVE Urine Nitrite NEGATIVE NEGATIVE Urine Bilirubin NEGATIVE NEGATIVE Urine Urobilinogen 0.2 < = 1.0 MG/DL Urine Leukocyte Esterase NEGATIVE NEGATIVE Urine RBC (Auto) 3+ H NEGATIVE Urine RBC 5-10 H /HPF Urine WBC NONE /HPF Urine Crystals PRESENT H /LPF Urine Amorphous Sediment FEW [place] URATES H /LPF Urine Bacteria NEGATIVE /HPF Urine Casts NONE /LPF Urine Mucus NEGATIVE /LPF Urine Culture Indicated NO Percent Immature Platelet Fraction 3.3 0.0-7.6 % Phosphorus Level 2.7 2.3-4.7 MG/DL Magnesium Level 2.0 1.6-2.4 MG/DL Micro Results Microbiology 05/24/22 Urine Culture - Final, Complete NO GROWTH 05/24/22 Blood Culture - Preliminary, Resulted Probable Pseudomonas My Orders Orders - ANDERSON HESTER MD Acetaminophen Tablet (Tylenol Tablet) (05/24/22 11:15) Ondansetron Injection (Zofran Injectio (05/24/22 11:15) Cbc With Automated Diff (05/24/22 11:10) Comprehensive Metabolic Panel (05/24/22 11:10) Blood Culture (05/24/22 11:10) Sputum Culture (05/24/22 11:10) Urinalysis (05/24/22 11:10) Urine Culture (05/24/22 11:10) Protime With Inr (05/24/22 11:10) Partial Thromboplastin Time (05/24/22 11:10) Chest 1 View, Ap/Pa Only (05/24/22 11:10) Ed Iv/Invasive Line Start (05/24/22 11:10) Vital Signs Adult Sepsis Patie Q15M (05/24/22 11:10) O2 (05/24/22 11:10) Remove Rings In Anticipation O (05/24/22 11:10) Lactic Acid Analyzer (05/24/22 11:10) Covid 19 Inhouse Test (05/24/22 11:10) Influenza A And B By Pcr (05/24/22 11:10) Manual Differential (05/24/22 11:00) Ns Iv 1000 Ml (Sodium Chloride 0.9%) (05/24/22 14:00) Ns Iv 1000 Ml (Sodium Chloride 0.9%) (05/24/22 14:46) Hs C Reactive Protein (05/24/22 14:50) Procalcitonin (Pct) (05/24/22 14:50) Cefepime Injection (Maxipime Injection) (05/24/22 15:00) Ct Head/Cervical Spine Wo (05/24/22 14:51) Ns Iv 1000 Ml (Sodium Chloride 0.9%) (05/24/22 15:00) Ct Chest/Abdomen/Pelvis Wo (05/24/22 14:56) Fentanyl Inj (Sublimaze Injection) (05/24/22 15:15) Norepinephrine 8 Mg/250 Ml (Norepinephri (05/24/22 16:00) Lactated Ringers (Lr 1000 Ml Iv Solution (05/24/22 18:00) Ed Admission (Communication) (05/24/22 18:39) Vancomycin Injection (Vancomycin Injecti (05/24/22 19:00) Medications Given in ED Vital Signs/I&O 05/25/22 05/25/22 05/25/22 05/25/22 04:00 04:00 04:11 04:11 Pulse 90 107 92 Resp 13 B/P (MAP) 124/64 (84) 132/70 124/64 Pulse Ox 97 95 O2 Delivery Room Air Room Air 05/25/22 05/25/22 05/25/22 05/25/22 05:00 06:00 07:00 07:00 Pulse 90 94 92 85 Resp 18 16 13 B/P (MAP) 130/68 (88) 117/62 (80) 111/62 (78) Pulse Ox 93 91 92 O2 Delivery Room Air Room Air Room Air 05/25/22 05/25/22 05/25/22 05/25/22 07:58 08:00 08:00 09:00 Temp 36.4 Pulse 81 93 Resp 14 13 B/P (MAP) 130/76 (94) 129/74 (92) Pulse Ox 95 97 98 O2 Delivery Room Air Room Air Room Air 05/25/22 05/25/22 05/25/22 05/25/22 10:00 11:00 11:51 12:00 Temp 36.3 Pulse 95 87 82 Resp 18 23 26 B/P (MAP) 138/95 (109) 122/71 (88) 121/78 (92) Pulse Ox 92 95 96 O2 Delivery Room Air Room Air Room Air 05/25/22 05/25/22 05/25/22 05/25/22 13:00 13:00 14:00 15:00 Pulse 88 93 98 82 Resp 13 19 19 B/P (MAP) 115/58 (77) 141/59 (86) 128/88 (101) Pulse Ox 94 90 96 O2 Delivery Room Air Room Air Room Air 05/25/22 00:00 Intake Total 2050 ml Balance 2050 ml Capillary Refill : Less Than 3 Seconds Blood Pressure Mean: 97 Progress Note #1: Time: 15:11 Progress Note Mr. Banuelos has had a neutropenic fever. So far work-up has not revealed any specific source. He is being treated with cefepime empirically. IV fluids are infusing but blood pressure has been persistently hypotensive. It is difficult to obtain accurate blood pressures as he is not able to lay flat on his back. Blood pressure is being obtained with him lying on his side with his arm upward. He has not declined in mentation since initial assessment. CT of the head through pelvis is being obtained as patient did have a significant fall a couple of days ago and has bruising noted on the torso and hip. He also struck his head. Progress Note #2: Time: 18:49 Progress Note Blood pressure did not normalize after 2 L of fluid resuscitation. He remained intermittently hypotensive. Levophed was initiated and blood pressure normalized. To meet the 30 mL/kg fluid bolus, a third L of IV fluid was ordered. CT scans revealed no acute injury or internal bleeding. Patient was admitted to the ICU. Dr. Bennett was consulted and requested adding vancomycin 1 gram x1 dose. Patient requests full CODE STATUS. Diagnostic Imaging Diagonstic Imaging: Xray Plain Films/CT/US/NM/MRI: chest Comments NAME: IVETT BANUELOS [facility] REC#: [id number] PT STATUS: REG ER : 1945 PHYSICIAN: ANDERSON HESTER MD ADMIT DATE: 05/24/22/ER Signed Date of Exam:05/24/22 CHEST 1 VIEW, AP/PA ONLY EXAMINATION: Chest 1 view HISTORY: Fever COMPARISON: None available. FINDINGS: Heart size and pulmonary vasculature are normal. There are low lung volumes with elevation right hemidiaphragm. Likely right azygos lobe is present. No focal consolidation, pleural effusion, or pneumothorax. The osseous structures are intact. IMPRESSION: 1. Low lung volumes without other acute radiographic abnormality in the chest. Dictated by: Dictated on workstation # [id number] Dict: 05/24/22 1126 Trans: 05/24/22 1130 [facility] [id number] Interpreted by: IVETT ESCOBAR DO Electronically signed by: IVETT ESCOBAR DO 05/24/22 1130 Diagonstic Imaging: CT Plain Films/CT/US/NM/MRI: c-spine, head Comments NAME: IVETT BANUELOS [facility] REC#: [id number] PT STATUS: REG ER : 1945 PHYSICIAN: ANDERSON HESTER MD ADMIT DATE: 05/24/22/ER Signed Date of Exam:05/24/22 CT HEAD/CERVICAL SPINE WO PROCEDURE: CT head and CT cervical spine without contrast. TECHNIQUE: Multiple contiguous axial images were obtained through the brain and cervical spine without the use of intravenous contrast. Sagittal and coronal reformations through the cervical spine were then performed. Auto Exposure Controls were utilized during the CT exam to meet ALARA standards for radiation dose reduction. INDICATION: Trauma, pain. COMPARISON: 12/17/2017. FINDINGS: Mild atrophy. No intracranial hemorrhage. No intracranial mass, mass effect, midline shift, herniation, hydrocephalus, or extra-axial fluid collection. Periventricular and subcortical white matter hypodensities are present, most consistent with mild background chronic small vessel white matter ischemic disease. No CT evidence of an acute ischemic infarction. The orbits are unremarkable. Hyperdensities are noted within the skin and underlying subcutaneous tissues within the left cheek region. The paranasal sinuses are clear. The calvarium and extracalvarial soft tissues are unremarkable. Slight reversal of the normal cervical lordosis, improved since the prior examination. No significant anterolisthesis or retrolisthesis. Alignment of the atlanto-occipital joint is well maintained. Prominent pannus formation is identified about the atlantoaxial joint, similar to the prior examination. This is resulting in mild central canal stenosis at this location. No acute fracture or dislocation. No destructive osseous process. Severe disc space height loss at C6/C7. Scattered facet joint degenerative changes and uncovertebral joint hypertrophy. There is resulting multilevel neural foraminal stenosis. Central canal stenosis is also present, particularly at C6/C7. No apical pneumothorax within the [id number]-[id number]. Mild background vascular calcifications. IMPRESSION: No acute intracranial abnormality with mild atrophy and mild background chronic small vessel white matter ischemic disease. Hyperdensities within the skin and underlying subcutaneous tissues within the left cheek. This may simply relate to soft tissue calcifications, though small foreign bodies would be an additional consideration. Recommend clinical correlation and direct visualization. No acute osseous abnormality within the cervical spine with [id number] degenerative changes, as described above. Dictated by: Dictated on workstation # [id number] Dict: 05/24/22 170 Trans: 05/24/221801 AS6 [id number] Interpreted by: ALOK JONES MD Electronically signed by: ALOK JONES MD 05/24/221801 Diagonstic Imaging: CT Plain Films/CT/US/NM/MRI: chest, abdomen, pelvis Comments NAME: IVETT BANUELOS [facility] REC#: [id number] PT STATUS: REG ER : 1945 PHYSICIAN: ANDERSON HESTER MD ADMIT DATE: 05/24/22/ER Signed Date of Exam:05/24/22 CT CHEST/ABDOMEN/PELVIS WO INDICATION: Fall with chest and abdominal pain. Patient also has history of prostate cancer. TECHNIQUE: Multiple contiguous axial images were obtained through the chest, abdomen, and pelvis without the use of intravenous contrast. Auto Exposure Controls were utilized during the CT exam to meet ALARA standards for radiation dose reduction. COMPARISON: There is no prior chest CT for comparison. CT abdomen and pelvis compared to 06/22/2021. CT CHEST FINDINGS: There are no enlarged mediastinal or hilar nodes. There is no mediastinal hematoma. There is prominent elevation of the right hemidiaphragm. There is no chest wall hematoma or axillary adenopathy. There is a normal variant of an azygos lobe in the right upper lobe. There is no pleural or pericardial fluid. Lung windows demonstrate the left lung to be clear. There is some posterior scarring or atelectatic change in the right lung. There is no acute traumatic abnormality. There is no overt bony abnormality in the chest. CT ABDOMEN AND PELVIS FINDINGS: The liver and gallbladder appear normal. Spleen and adrenals and pancreas are normal. The kidneys bilaterally show no acute injury. There is a stent in place in the left renal pelvis extending into the bladder without hydronephrosis. There is no retroperitoneal hematoma. Periaortic adenopathy appears relatively stable compared to the prior study, with cluster of nodes in the left periaortic region measuring about 2.8 cm which is similar to the previous study. There are postop changes in the pelvis with radiation seed implants. There is no sign of bowel obstruction. There is a Matos catheter in the bladder. IMPRESSION: CT chest shows no acute abnormality. There is prominent elevation of the right hemidiaphragm with some right basilar scarring or atelectasis. There is no acute traumatic abnormality in the chest. CT abdomen and pelvis demonstrates no solid organ injury or free fluid. There is a stent in place in the left renal pelvis extending into the bladder, without hydronephrosis. There is periaortic adenopathy on the left side, which appears stable compared with 06/22/2021, likely metastatic. There are postop changes in the prostate. There is no pelvic fracture. Dictated by: Dictated on workstation # [id number] Dict: 05/24/22 1703 Trans: 05/24/22 173 AS6 [id number] Interpreted by: NAVA GUZMAN MD Electronically signed by: NAVA GUZMAN MD 05/24/221736 Departure Communication (Admissions) Time/Spoke to Admitting Phy: 17:55 Dr. Ramos Time/Spoke to Consulting Phy: 18:46 Dr. Bennett Impression Primary Impression: Neutropenic fever Additional Impressions: Septic shock Prostate cancer Disposition: ADMITTED INPATIENT Condition: Stable Admissions Decision to Admit Reason: Admit from ER (General) Decision to Admit/Date: May 24, 2022 Time/Decision to Admit Time: 17:55 Departure-Patient Inst. Referrals: VAISHNAVI AGUILAR MD (PCP/Family) Primary Care Physician Copy Copies To 1: VAISHNAVI AGUILAR MD, JOSHUA T MD May 24, 2022 15:13
[2022-05-24] MEDS ORDERED: fentaNYL INJ 100 MCG/2 ML AMP IVP ONE (15:15)
[2022-05-24] MEDS: NOREPINEPHRINE 8 MG/250 ML 250 ML IV SCH (16:03)
--- NOTE | 2022-05-24 17:11 | Diagnostic Imaging Report ---
PROCEDURE: CT head and CT cervical spine without contrast. TECHNIQUE: Multiple contiguous axial images were obtained through the brain and cervical spine without the use of intravenous contrast. Sagittal and coronal reformations through the cervical spine were then performed. Auto Exposure Controls were utilized during the CT exam to meet ALARA standards for radiation dose reduction. INDICATION: Trauma, pain. COMPARISON: 12/17/2017. FINDINGS: Mild atrophy. No intracranial hemorrhage. No intracranial mass, mass effect, midline shift, herniation, hydrocephalus, or extra-axial fluid collection. Periventricular and subcortical white matter hypodensities are present, most consistent with mild background chronic small vessel white matter ischemic disease. No CT evidence of an acute ischemic infarction. The orbits are unremarkable. Hyperdensities are noted within the skin and underlying subcutaneous tissues within the left cheek region. The paranasal sinuses are clear. The calvarium and extracalvarial soft tissues are unremarkable. Slight reversal of the normal cervical lordosis, improved since the prior examination. No significant anterolisthesis or retrolisthesis. Alignment of the atlanto-occipital joint is well maintained. Prominent pannus formation is identified about the atlantoaxial joint, similar to the prior examination. This is resulting in mild central canal stenosis at this location. No acute fracture or dislocation. No destructive osseous process. Severe disc space height loss at C6/C7. Scattered facet joint degenerative changes and uncovertebral joint hypertrophy. There is resulting multilevel neural foraminal stenosis. Central canal stenosis is also present, particularly at C6/C7. No apical pneumothorax within the [id number]-axue. Mild background vascular calcifications. IMPRESSION: No acute intracranial abnormality with mild atrophy and mild background chronic small vessel white matter ischemic disease. Hyperdensities within the skin and underlying subcutaneous tissues within the left cheek. This may simply relate to soft tissue calcifications, though small foreign bodies would be an additional consideration. Recommend clinical correlation and direct visualization. No acute osseous abnormality within the cervical spine with [id number] degenerative changes, as described above. Dictated by: Dictated on workstation # [id number]
--- NOTE | 2022-05-24 17:18 | Diagnostic Imaging Report ---
INDICATION: Fall with chest and abdominal pain. Patient also has history of prostate cancer. TECHNIQUE: Multiple contiguous axial images were obtained through the chest, abdomen, and pelvis without the use of intravenous contrast. Auto Exposure Controls were utilized during the CT exam to meet ALARA standards for radiation dose reduction. COMPARISON: There is no prior chest CT for comparison. CT abdomen and pelvis compared to 06/22/2021. CT CHEST FINDINGS: There are no enlarged mediastinal or hilar nodes. There is no mediastinal hematoma. There is prominent elevation of the right hemidiaphragm. There is no chest wall hematoma or axillary adenopathy. There is a normal variant of an azygos lobe in the right upper lobe. There is no pleural or pericardial fluid. Lung windows demonstrate the left lung to be clear. There is some posterior scarring or atelectatic change in the right lung. There is no acute traumatic abnormality. There is no overt bony abnormality in the chest. CT ABDOMEN AND PELVIS FINDINGS: The liver and gallbladder appear normal. Spleen and adrenals and pancreas are normal. The kidneys bilaterally show no acute injury. There is a stent in place in the left renal pelvis extending into the bladder without hydronephrosis. There is no retroperitoneal hematoma. Periaortic adenopathy appears relatively stable compared to the prior study, with cluster of nodes in the left periaortic region measuring about 2.8 cm which is similar to the previous study. There are postop changes in the pelvis with radiation seed implants. There is no sign of bowel obstruction. There is a Matos catheter in the bladder. IMPRESSION: CT chest shows no acute abnormality. There is prominent elevation of the right hemidiaphragm with some right basilar scarring or atelectasis. There is no acute traumatic abnormality in the chest. CT abdomen and pelvis demonstrates no solid organ injury or free fluid. There is a stent in place in the left renal pelvis extending into the bladder, without hydronephrosis. There is periaortic adenopathy on the left side, which appears stable compared with 06/22/2021, likely metastatic. There are postop changes in the prostate. There is no pelvic fracture. Dictated by: Dictated on workstation # [id number]
[2022-05-24] MEDS ORDERED: LACTATED RINGERS 1,000 ML IV ONE (18:00)
[2022-05-24] MEDS ORDERED: VANCOMYCIN INJECTION 1,000 MG in NS (IVPB) 250 ML IV ONE (19:00)
[2022-05-24] MEDS ORDERED: BISACODYL 10 MG SUPP (DULCOLAX) PR PRN (20:30)
[2022-05-24] MEDS ORDERED: VANCOMYCIN INJECTION 0.1 MG in NS (IVPB) 250 ML IV SCH (20:30)
[2022-05-24] MEDS ORDERED: ANTACID SUSP 30 ML UDC (MYLANTA) PO PRN (20:30)
[2022-05-24] MEDS ORDERED: CALCIUM CARBONATE 500 MG (TUMS) TAB.CHEW PO PRN (20:30)
[2022-05-24] MEDS ORDERED: MILK OF MAGNESIA 400 MG/5 ML 30 ML UDC PO PRN (20:30)
[2022-05-24] MEDS ORDERED: NS IV 500 ML 500 ML IV PRN (20:30)
[2022-05-24] MEDS ORDERED: ONDANSETRON 4 MG/2 ML (SDV) Z0FRAN IV PRN (20:30)
[2022-05-24] MEDS ORDERED: LACTULOSE SYRUP 10GM/15ML (ENULOSE) 30ML UDC PO PRN (20:30)
[2022-05-24] MEDS ORDERED: polyethylene glycoL POWDER 17 GM (MIRALAX) PACK PO PRN (20:30)
[2022-05-24 21:18] VITALS: BP 130/80
--- NOTE | 2022-05-24 21:29 | Tele-ICU Progress Note ---
Progress Note 77M with HTN, HLD, h/o DVT, met prostate cancer on active chemo admitted with neutropenic sepsis. Presented with fever, weakness. Also noted to have a fall a few days ago. Did hit his head on that occassion. Noted to have bruising to the hips and torso. In ED, had persistent hypotension as low as the 60s despite volume resuscitation. Peripheral levophed initiated. Patient currently without complaints other than weakness. - sepsis/septic shock: source unknown, neutropenic. Vanco, cefepime initiated. Cultures pending. Levophed ongoing for HD support. Consulting surgery for CVL placement. - neutropenia: secondary to active chemo. May be candidate for neupogen. RN to check with onc (already consulted) CCT 9 min Focused Exam Lactate Level 05/24/22 11:00: Lactic Acid Level 1.94 Height, Weight, BMI Height: 5'11.00" Weight: 216lbs. 0.0oz. 97.517125tm; 30.00 BMI Method:Stated ROSENDO LOPEZ MD May 24, 2022 21:29
[2022-05-24] MEDS ORDERED: RT-ALBUTEROL SULF 2.5 MG/3 ML PRE-MIX VIAL INH PRN (21:30)
[2022-05-24] MEDS ORDERED: VANCOMYCIN 1 GM/NS 250 ML IVPB IV ONE ×2 (22:30)
--- NOTE | 2022-05-24 23:44 | CONSULTATION REPORT ---
DATE OF SERVICE: 05/24/2022 ATTENDING PRIMARY CARE PHYSICIAN: Jt Tijerina MD ADMITTING PHYSICIAN: Dr. Ramos. HISTORY OF PRESENT ILLNESS: The patient is a 77-year-old male with history of metastatic prostate cancer. He has been on Lupron therapy for years. It appears that he was found to have some new metastatic deposits and was started on chemotherapy recently with Taxol approximately one week ago and states that he felt fine the initial few days after; however, then felt extremely weak and fell several times. He was found to be neutropenic and also hypotensive. Due to his hypotension, he required vasopressors to maintain his mean arterial pressure. He will require central venous catheter for continued IV therapy. PAST MEDICAL HISTORY: Metastatic prostate cancer, hypertension, hypercholesterolemia, history of lower extremity deep vein thrombosis. PAST SURGICAL HISTORY: Left inguinal hernia repair x2, right inguinal hernia repair, left ureteral stent placement for 09/15/20, tonsillectomy, vasectomy. ALLERGIES: No known drug allergies. MEDICATIONS: Bicalutamide 50 mg daily, Colace 100 mg daily, irbesartan 300 mg daily, megestrol acetate 20 mg b.i.d., Zofran p.r.n., phenazopyridine 200 mg t.i.d., simvastatin 40 mg daily, Bactrim b.i.d., tramadol p.r.n. SOCIAL HISTORY: Negative smoking, negative alcohol. FAMILY HISTORY: Noncontributory. VITAL SIGNS: Temperature 39.5, blood pressure 130/80, pulse 133, respirations 24, pulse ox 95% on 2 liters nasal cannula. REVIEW OF SYSTEMS: A well-nourished male, currently in no acute distress. He is not experiencing any shortness of breath or difficulty breathing. No chest pain, palpitations or diaphoresis. No nausea. He reports that he has not had an appetite for the past several days with mild nausea, no vomiting, no diarrhea or constipation, no red blood per rectum or dark tarry stools. He states that he has felt weak over the past several days and has fallen a few times. No known fever or chills at home. No recent inadvertent weight loss. All other review of systems negative. PHYSICAL EXAMINATION: CHEST: Clear, good breath sounds bilaterally. HEART: Regular, no murmurs. EXTREMITIES: No lower extremity edema. Negative Homans sign. HEENT: No scleral icterus. No cervical lymphadenopathy. GASTROINTESTINAL: Abdomen is soft, nontender, nondistended. SKIN: Warm and dry. LABORATORY DATA: WBC 8.9, hemoglobin 11.8, hematocrit 34, platelets 230, BUN 40, creatinine 1.80. ASSESSMENT AND PLAN: A 77-year-old male with stage IV metastatic prostate cancer with recent chemotherapy and now neutropenic, weak, dehydrated and hypovolemic shock. He will require a central venous catheter for vasopressor therapy and will require a central venous catheter. Job ID: [id number] DocumentID: [id number] Dictated Date: 05/24/2022 23:25:24 Court Supervisor Date: 05/24/2022 23:41:00 Dictated By: LILLY GONZALEZ MD
[2022-05-24] MEDS: SENNOSIDES 8.6 MG (SENOKOT) TAB PO SCH (23:45)
[2022-05-24] MEDS: DOCUSATE SODIUM 100 MG (COLACE) CAP PO SCH (23:45)
[2022-05-24] MEDS: CEFEPIME INJECTION 1,000 MG in NS (IVPB) 50 ML IV SCH (23:45)
[2022-05-24] MEDS: LACTATED RINGERS 1,000 ML IV SCH (23:46)
--- NOTE | 2022-05-25 03:48 | OPERATIVE REPORT ---
DATE OF SERVICE: 05/24/2022 ATTENDING PRIMARY CARE PHYSICIAN: Dr. Tijerina. ADMITTING PHYSICIAN: Dr. Ramos. PREOPERATIVE DIAGNOSIS: Stage IV prostate cancer with recent chemotherapy, neutropenia and hypovolemic shock. POSTOPERATIVE DIAGNOSIS: Stage IV prostate cancer with recent chemotherapy, neutropenia and hypovolemic shock. PROCEDURE: Placement of left subclavian central venous catheter. ATTENDING SURGEON: Lilly Gonzalez MD ANESTHESIA: Local. ESTIMATED BLOOD LOSS: Minimal. DISPOSITION: The patient tolerated the procedure well. INDICATIONS: The patient is a 77-year-old male with a history of a stage IV prostate cancer diagnosed in 2017. He has been on Lupron therapy and he was found to have recent new deposits and was recently started on chemotherapy with Taxol and states that he felt fine the first 2 days, however, then felt extremely weak and at home, suffered a few same level of falls. He was brought to the Emergency Room, was found to be hypotensive as well as neutropenic. He is requiring vasopressors to maintain his mean arterial pressure and will require central venous catheter for continued therapy. DESCRIPTION OF PROCEDURE: The chest and neck were prepped and draped in standard surgical fashion. The left subclavian region was then anesthetized using 1% lidocaine. The left subclavian vein was then cannulated with drawing of venous blood. The guidewire was then inserted without any resistance. Cannulating needle removed and a skin incision made using a 11 blade, a tract was then created using a venous dilator and through this opening, a triple lumen central venous catheter was placed over the guidewire using the Seldinger technique. The guidewire was then removed and all 3 ports giuseppe venous blood and saline pushed in without any resistance. The catheter was then sutured to the skin using 3-0 silk interrupted sutures. Catheter was then cleaned and covered with Op-Site. The patient tolerated the procedure well. We will get a post-procedure chest x-ray. Job ID: [id number] DocumentID: [id number] Dictated Date: 05/24/2022 23:30:04 Residential Real Estate Agent Date: 05/25/2022 03:46:00 Dictated By: LILLY GONZALEZ MD
[2022-05-25] MEDS: NOREPINEPHRINE 8 MG/250 ML 250 ML IV SCH ×2 (04:11→16:31)
[2022-05-25 04:39] LABS: EOSINOPHILS % (AUTO) 0 % (0-10); HEMATOCRIT 28 % (40-54); HEMOGLOBIN 9.9 g/dL (13.3-17.7); MEAN CORPUSCULAR HGB CONC 35 g/dL (32-36)
[2022-05-25 04:41] LABS: BASOPHILS % (AUTO) 0 % (0-10); LYMPHOCYTES # (AUTO) 0.8 10^3/uL (1.0-4.0); LYMPHOCYTES % (AUTO) 28 % (12-44); MEAN CORPUSCULAR HEMOGLOBIN 33 pg (25-34); MEAN CORPUSCULAR VOLUME 92 fL (80-99); MEAN PLATELET VOLUME 10.1 fL (9.0-12.2); MONOCYTES % (AUTO) 38 % (0-12); NEUTROPHILS # (AUTO) 0.8 10^3/uL (1.8-7.8); NEUTROPHILS % (AUTO) 32 % (42-75); PLATELET COUNT 225 10^3/uL (130-400); WHITE BLOOD COUNT 2.7 10^3/uL (4.3-11.0)
[2022-05-25 05:36] LABS: ALBUMIN 2.7 GM/DL (3.2-4.5); BILIRUBIN,TOTAL 0.5 MG/DL (0.1-1.0); CALCIUM 8.8 MG/DL (8.5-10.1); CREATININE SERUM 1.49 MG/DL (0.60-1.30); PHOSPHORUS 2.7 MG/DL (2.3-4.7); POTASSIUM 3.9 MMOL/L (3.6-5.0); TOTAL PROTEIN 5.2 GM/DL (6.4-8.2)
[2022-05-25] MEDS: MAGNESIUM 1 GM/100 ML IVPB 100 ML IV SCH (06:01)
[2022-05-25] MEDS: POTASSIUM CL 10MEQ/50ML IVPB 50 ML IV SCH (06:01)
[2022-05-25] MEDS: KCL 20 MEQ TAB (K-DUR) PO SCH (06:02)
[2022-05-25] MEDS: CEFEPIME INJECTION 1,000 MG in NS (IVPB) 50 ML IV SCH ×2 (06:28→16:26)
--- NOTE | 2022-05-25 08:49 | Diagnostic Imaging Report ---
Indication: Central line placement. Time of Exam: 11:37 AM Correlation is made with prior chest from earlier same morning. Heart size stable. Right hemidiaphragm is elevated. Lungs appear to be clear. There is no effusion or pneumothorax. There is a central line that has been placed on the left which has the tip overlying the SVC. There is no pneumothorax seen. IMPRESSION: Central line placement with tip overlying the SVC. No pneumothorax is detected. Dictated by: Dictated on workstation # [id number]
[2022-05-25] MEDS: ENOXAPARIN 40 MG/0.4 ML (LOVENOX) SYR SC SCH (08:53)
[2022-05-25] MEDS: SENNOSIDES 8.6 MG (SENOKOT) TAB PO SCH ×2 (08:53→21:29)
[2022-05-25] MEDS: DOCUSATE SODIUM 100 MG (COLACE) CAP PO SCH ×2 (08:53→21:29)
[2022-05-25] MEDS: TBO-FILGRASTIM 480 MCG/0.8 ML (GRANIX) SQ SCH (08:54)
--- NOTE | 2022-05-25 09:23 | Tele-ICU Progress Note ---
Subjective Date Seen by a Provider: May 25, 2022 Subjective/Events-last exam This virtual visit was conducted using real time audio/video. Thank you for asking us to see this patient for neutropenic fever. Recent events: Undergoing chemo for met prostate cancer. PE: VSS. O2 sat 94% on RA. HEENT: No obvious masses, adenopathy or JVD. Chest: clear to auscultation. CV: RRR S1 S2 No murmur or added sounds. Abd: Non-tender. Bowel sounds Y. : Unremarkable. Matos N. EDUCATIONAL CONSULTANT/psychiatric: Grossly intact. No obvious focal findings. Extremities:No edema. Capillary refill < 3 seconds. Skin: unremarkable. Results: Elevated BUN 33, BG 122, creat 1.49. Decreased WCC 2.7 better, Hb 9.9. CXR: Clear. Available chart/ vitals / labs / images reviewed. Video assessment done using teleICU camera, rest of exam as per RN. A/P: Critical Care: critically ill patient. Cont.abx, Beatriz., Granix. Wean Levo with a view to transfer. Discussed with RN Hanna. Asked RN to reach out to eICU if any questions or concerns later. Time spent with patient/coordination of care with other health professionals (mins): 15 Sepsis Event Evaluation Height, Weight, BMI Height: 5'11.00" Weight: 216lbs. 0.0oz. 97.157964lv; 30.80 BMI Method:Stated Focused Exam Lactate Level 05/24/22 11:00: Lactic Acid Level 1.94 Exam Exam Patient acknowledged, consented, and participated in this virtual visit which was conducted using real time audio/video Vital Signs Date Time Temp Pulse Resp B/P (MAP) Pulse Ox O2 Delivery O2 Flow Rate FiO2 05/25/22 08:00 81 14 130/76 (94) 95 Room Air 05/25/22 07:58 36.4 05/25/22 07:00 85 05/25/22 07:00 92 13 111/62 (78) 92 Room Air 05/25/22 06:00 94 16 117/62 (80) 91 Room Air 05/25/22 05:00 90 18 130/68 (88) 93 Room Air 05/25/22 04:11 92 124/64 05/25/22 04:11 107 132/70 05/25/22 04:00 90 13 124/64 (84) 95 Room Air 05/25/22 04:00 97 Room Air 05/25/22 03:00 93 14 121/65 (83) 91 Room Air 05/25/22 02:00 92 14 108/67 (81) 92 Room Air 05/25/22 01:32 36.7 Room Air 05/25/22 01:00 107 05/25/22 01:00 101 14 117/66 (83) 92 Room Air 05/25/22 00:00 96 13 132/70 (90) 92 Room Air 05/24/22 23:59 96 Room Air 05/24/22 23:30 96 Room Air 05/24/22 23:00 94 17 122/67 (85) 96 Room Air 05/24/22 22:59 100 05/24/22 22:00 96 18 122/70 (87) 97 Room Air 05/24/22 21:57 95 Room Air 05/24/22 21:30 105 18 136/76 (96) 95 Room Air 05/24/22 21:18 39.5 133 95 28 05/24/22 21:06 36.7 05/24/22 21:00 96 15 96/51 (66) 98 Room Air 05/24/22 20:45 97 17 101/83 (89) 91 Room Air 05/24/22 20:30 98 10 101/81 (88) 94 Room Air 05/24/22 20:15 97 18 93/58 (70) 90 Room Air 05/24/22 20:14 38.3 Room Air 05/24/22 19:58 37.2 100 18 82/54 95 Room Air 05/24/22 16:03 97 72/56 05/24/22 14:35 89 Nasal Cannula 2.00 05/24/22 10:50 39.5 133 24 130/80 (97) 95 I & O 05/25/22 07:00 Intake Total 4600 ml Output Total 2575 ml Balance 2025 ml Height & Weight Height: 5'11.00" Weight: 216lbs. 0.0oz. 97.239362db; 30.80 BMI Method:Stated General Appearance: No Apparent Distress Respiratory: Lungs Clear Capillary Refill: Less Than 3 Seconds Peripheral Pulses: 1+ Dorsalis Pedis (R), 1+ Left Dors-Pedis (L) (See free text) Results Lab Laboratory Tests 05/24/22 11:00 05/25/22 04:32 Assessment/Plan Assessment/Plan See free text. Critical Care: Critically Ill Patient NELLA DUARTE MD May 25, 2022 09:23
[2022-05-25] MEDS ORDERED: VENL75CA93 PO (11:17)
[2022-05-25] MEDS ORDERED: DEXA4TAB PO (11:17)
[2022-05-25] MEDS ORDERED: PRED5TAB PO (11:17)
[2022-05-25] MEDS ORDERED: IRBE1TAB43 PO (11:17)
[2022-05-25] MEDS ORDERED: GLUC500T10 PO (11:17)
[2022-05-25] MEDS ORDERED: GABA300C PO (11:17)
[2022-05-25] MEDS ORDERED: PANT40TA52 PO (11:17)
[2022-05-25] MEDS ORDERED: ONDA-106 PO (11:17)
[2022-05-25] MEDS ORDERED: CYCL10TA25 PO (11:17)
[2022-05-25] MEDS ORDERED: CALC-1049 PO (11:17)
[2022-05-25] MEDS ORDERED: NAPR220T66 PO (11:17)
[2022-05-25] MEDS ORDERED: OXYB10TA29 PO (11:17)
[2022-05-25] MEDS: LACTATED RINGERS 1,000 ML IV SCH ×2 (12:30→21:35)
--- NOTE | 2022-05-25 12:35 | History & Physical-Hospitalist ---
JENNIFER ANGLIN MED STUDENT 05/25/22 1235: History of Present Illness HPI/Chief Complaint Art is a 77 yo male who was admitted for neutropenic fever and septic shock. Pt has pmhx of metastatic prostate cancer, HTN, HLD, DVT and diverticulosis. Pt reports he fell on his right hip on 05/23 and the following day he slid out of bed and couldn't get up, so they called EMS. Pt just recently started on Taxol chemotherapy a week ago Saturday and states he has been weak ever since. He also has acute sciatic nerve pain since Apr that he is trying to get an injection for, but has not been scheduled yet. D/t these issues, he has become weaker and had these falls. Pt was found to be febrile in the ED. He received 3L of IV fluids and remained hypotensive, so was started on Levophed. Once admitted, general surgeon was consulted for central line placement. Pt was found to have WBC of 0.9. He was started on cefepime and vancomycin for empiric abx therapy. He has also been given filgrastim. Today pt reports he is feeling much better. He is on Room Air with adequate saturations and denies SOA. Pt denies fever, chills, N/V/D, dysuria, frequency, numbness, tingling. ROS neg unless otherwise stated. Source: patient Date Seen 05/25/22 Time Seen by a Provider: 08:45 Attending Physician Jt Tijerina MD PCP Admitting Physician: Jeremy Quarles MD Attending Physician: Jeremy Quarles MD Referring Physician Date of Admission May 24, 2022 at 18:40 Home Medications & Allergies Home Medications Reviewed patient Home Medication Reconciliation performed by pharmacy medication reconciliations school laboratory technician and/or nursing. Patients Allergies have been reviewed. Allergies Allergies Coded Allergies No Known Drug Allergies (Unverified08/19/20) Past Yswezzm-Immgwe-Xesjkq Hx Patient Social History Tobacco Use?: No Smoking Status: Former Smoker Smokeless Tobacco Frequency: Former User Substance use?: No Alcohol Use?: No Pt feels they are or have been: No Immunizations Up To Date Date of Influenza Vaccine: Mar 17, 2022 First/Initial COVID19 Vaccinat: 08/15/20 Second COVID19 Vaccination Win: 08/15/20 Date of Pneumonia Vaccine: Apr 05, 2015 Seasonal Allergies Seasonal Allergies: No Current Status Advance Directives: Yes Advance Directive Location: Family to bring in copy Communicates: Verbally Primary Language: Surinamese Preferred Spoken Language: Surinamese Is interpretation needed?: No Sensory deficits: Vision impairment, Hearing impairment Implanted or Applied Medical D: Stents Past Medical History Surgeries: Abdominal, Adenoidectomy, Renal, Tonsillectomy, Vasectomy Currently Using CPAP: No Currently Using BIPAP: No High Cholesterol, Hypertension Sexually Transmitted Disease: No HIV/AIDS: No Prostate Problems Abdominal Hernia, Diverticulosis Arthritis Loss of Vision: Bilateral Hearing Impairment: Denies Prostate, Skin Did You Recieve Any Treatments: Yes What Type of Treatment Did You: Radiation Blood Disorders: No Adverse Reaction/Blood Tranf: No Review of Systems Constitutional: No chills, No fever; weakness EENTM: No blurred vision, No double vision Respiratory: No cough, No short of breath Cardiovascular: No chest pain, No palpitations Gastrointestinal: No constipation, No diarrhea, No melena, No nausea, No vomiting Genitourinary: No dysuria, No frequency Musculoskeletal: No back pain, No joint pain Skin: No change in color, No lesions, No lumps Psychiatric/Neurological: Denies Headache, Denies Numbness, Denies Tingling; Weakness Physical Exam Physical Exam Vital Signs Vital Signs - First Documented 05/24/22 05/24/22 05/24/22 10:50 14:35 21:18 Temp 39.5 Pulse 133 Resp 24 B/P (MAP) 130/80 (97) Pulse Ox 95 O2 Delivery Nasal Cannula O2 Flow Rate 2.00 FiO2 28 Capillary Refill : Less Than 3 Seconds Height, Weight, BMI Height: 5'11.00" Weight: 216lbs. 0.0oz. 97.215300tr; 30.80 BMI Method:Stated General Appearance: No Apparent Distress, WD/WN HEENT: PERRL/EOMI, Moist Mucous Membranes Neck: Full Range of Motion, Normal Inspection Respiratory: Chest Non Tender, Lungs Clear Cardiovascular: Regular Rate, Rhythm, No Murmur Gastrointestinal: Normal Bowel Sounds, Non Tender, Soft Extremity: Non Tender, Pedal Edema (mild LE edema) Neurologic/Psychiatric: Alert, Oriented x3, Normal Mood/Affect Skin: Normal Color, Warm/Dry Results Results/Procedures Labs Laboratory Tests 05/24/22 11:00 05/25/22 04:32 Patient resulted labs reviewed. Assessment/Plan Admission Diagnosis Neutropenic fever and septic shock Assessment and Plan Neutropenic Fever Septic Shock d/t gram neg bacteremia TANNER Anemia Metastatic prostate cancer on chemotherapy Neutropenic Fever -Resolved -WBC 2.7 -Afebrile today Septic Shock d/t gram neg bacteremia -3L of IV fluids given -Wean off levophed, pressures have been stable -Blood cultures showed gram negative bacillus -Continue cefepime -D/c Vancomycin, low risk for MRSA -Dr. Crum consulted and central line placed TANNER -BUN and Cr 33 and 1.49 respectively -Improving with fluids Anemia Metastatic prostate cancer on chemotherapy Disposition: Pt will likely stay another 24 hours to wean off levophed and monitor pressures as well as receive IV abx for gram negative sepsis. Diet: Low sodium DVT ppx: Lovenox Code status: Full Code JEREMY QUARLES MD 05/25/22 1327: History of Present Illness Source: patient, family Exam Limitations: no limitations Time Seen by a Provider: 10:35 Past Xqvemjx-Wafpxi-Rrnnqv Hx Past Medical History Prostate Problems Prostate (metastatic prostate cancer) Did You Recieve Any Treatments: Yes What Type of Treatment Did You: Chemotherapy Family Medical History No Pertinent Family Hx Results Results/Procedures Imaging: Reviewed Imaging Report Assessment/Plan Admission Diagnosis Admission Status: Inpatient Order (span 2 midnights) Reason for Inpatient Admission: septic shock Assessment and Plan Admitted with neutropenic fever and septic shock. Started on Cefepime and Vancomycin. Blood culture positive with gram negative bacilli. Stop Vancomycin. Wean pressors as able. Neutropenia improving this morning. Started on Filgastrim. Dr. Bennett consulted. Critical Care Critically Ill Patient Diagnosis/Problems Diagnosis/Problems (1) Neutropenic fever Status: Acute (2) Septic shock Status: Acute (3) Prostate cancer metastatic to intrapelvic lymph node Status: Acute (4) Acute kidney injury superimposed on chronic kidney disease Status: Acute Supervisory-Addendum Brief Verification & Attestation Participated in pt care: history, MDM, physical Personally performed: exam, history, MDM, supervision of care Care discussed with: Medical Student Procedures: n/a Results interpretation: Verified all documentation A medical student performed and documented this service in my presence. I reviewed and verified all information documented by the medical student and made modifications to such information, when appropriate. I personally performed the physical exam and medical decision making. JENNIFER ANGLIN MED STUDENT May 25, 2022 12:35 JEREMY QUARLES MD May 25, 2022 13:27
--- NOTE | 2022-05-25 14:10 | CONSULTATION REPORT ---
DATE OF SERVICE: 05/25/2022 The patient is admitted to ICU bed 7. PHYSICIAN REQUESTING CONSULTATION: Lynne Ramos. PRIMARY PHYSICIAN: Jt Tijerina MD IMPRESSION: 1. A 77-year-old male admitted with increasing weakness and found to be febrile. 2. Grade IV neutropenia. 3. History of hormone-refractory prostate cancer and on chemotherapy with Taxotere. 4. Hypotension and possible sepsis, osteoarthritis/spinal stenosis causing back pain. RECOMMENDATIONS: 1. Continue broad-spectrum antibiotics until blood culture results are available. 2. Granix 480 mcg subQ daily until absolute neutrophil count more than 10,000 and stop. 3. Continue pressors as needed and IV fluids. Gradually wean and discontinue as tolerated. 4. Increase activity as tolerated. May consider physical therapy consult for ambulation and strengthening. BRIEF HISTORY: The patient is a 77-year-old male with history of metastatic prostate cancer that had become hormone refractory. He had consultation at [facility] and was recommended to start palliative chemotherapy with Taxotere. He received a first dose of chemotherapy on 05/19/2022 and tolerated the treatments well. The patient started becoming weaker earlier this week until he started developing fevers and significant fatigue on Saturday. He was brought to the Emergency Room on by his family and noted to have grade IV neutropenia and hypotension. He was admitted to ICU for pressor support, broad-spectrum antibiotics and further management. Oncology consultation was requested for concurrent care. PAST MEDICAL HISTORY: Significant for metastatic prostate cancer. He was initially diagnosed with Lloyd grade 8 prostate cancer in mid 2016 and underwent brachytherapy followed by external beam radiation therapy. By late 2018, he had recurrent disease, with lymphadenopathy causing left ureteral obstruction and stent placement. He started on complete androgen blockade with Lupron and bicalutamide with eventual removal of ureteral stent. By early 2020, he had recurrence of left flank pain with a scan showing recurrent lymphadenopathy causing left hydronephroureterosis. PET/CT scan showed hypermetabolic lymphadenopathy in the left periaortic, central retroperitoneal and left common iliac location. He had a ureteral stent placed and needle biopsy of the periaortic lymph nodes, which was consistent with metastatic prostate cancer. Started on treatment with Lupron and enzalutamide for 18 months, but had progression recently and started on palliative chemotherapy with Taxotere. Other significant past medical history include hypertension, hypercholesterolemia, DVT, osteoarthritis/spinal stenosis causing back pain. PAST SURGICAL HISTORY: Include tonsillectomy and adenoidectomy at 10 years of age. Bilateral inguinal hernia surgeries, prostate brachytherapy in 2017 and ureteral stent placements in 2019 and 2020. FAMILY HISTORY: Significant for hypertension in mother and maternal grandmother. His half-brother had lung cancer. Rest of the family history is unremarkable. SOCIAL HISTORY: The patient is and lives in [place], [place]. He is a retired at [employer]. He smoked a pipe for 20 years and quit in 1980. No significant alcohol or recreational drug use. He has 2 children, son and a daughter from a previous marriage, both of whom live in [facility]. PHYSICAL EXAMINATION: GENERAL: Today showed an elderly male, well developed and nourished, weak appearing, awake and oriented, otherwise in no acute distress. VITAL SIGNS: Temperature was 36.3, pulse rate 82, respirations 26, blood pressure 121/78 with oxygen saturation of 96% on room air. HEENT: Normocephalic. Extraocular muscles intact, conjunctivae pink, oral mucosa moist. NECK: Supple, with no JVD. No cervical, supraclavicular or axillary lymphadenopathy palpable. CHEST: Symmetrical with a left sided central line. LUNGS: Fairly clear to auscultation without wheezes or rales. CARDIAC: Regular in rate and rhythm without murmurs or gallops. ABDOMEN: Soft, nontender with no hepatosplenomegaly or other masses palpable. EXTREMITIES: Showed no edema. NEUROLOGIC: Grossly intact without focal motor deficits. LABORATORY DATA: Reviewed his lab work done at the time of admission from Emergency Room yesterday. CBC showed WBC 0.9, hemoglobin 11.8, platelet count 230,000 with neutrophil count 0.1, lymphocyte count 0.3 and monocyte count 0.4. Repeat CBC done today morning showed white count 2.7, hemoglobin 9.9 and platelet count 225,000 with a neutrophil count 0.8. Chemistry panel at the time of admission showed relatively normal electrolytes. BUN was 40 and creatinine 1.8 with GFR 38 mL per minute. AST was elevated at 67 with rest of the liver function studies within normal limits. Lactic acid was 1.94. C-reactive protein was elevated at 23.22 and procalcitonin was 1.35. Repeat chemistry panel today showed BUN of 33 and creatinine 1.49 with GFR 47 mL per minute. AST was [address] scans of the chest, abdomen and pelvis done at the time of admission showed no obvious abnormality. There is slight right basilar scarring or atelectasis. CT scan of the abdomen and pelvis showed a stent in the left renal pelvis extending to the bladder. A periaortic adenopathy on the left side, stable compared to 06/22/2021. Postoperative changes in the prostate. Blood cultures obtained at the emergency room showed that one culture was growing gram-negative bacilli. Thank you for allowing me to participate in this patient's care. I will follow the patient with you and make appropriate recommendations. Job ID: [id number] DocumentID: [id number] Dictated Date: 05/25/2022 13:19:58 Oil Mixer Date: 05/25/2022 14:08:00 Dictated By: ANDREW WILKINSON MD
--- NOTE | 2022-05-25 14:24 | Occupational Therapy Eval ---
OT Evaluation-General/PLF Medical Diagnosis Admission Date May 24, 2022 at 18:40 Medical Diagnosis: neutropenic fever Onset Date: May 24, 2022 Therapy Diagnosis Therapy Diagnosis: decreased ADL status Height/Weight Height (Feet): 5 Height (Inches): 11.00 Weight (Pounds): 216 Weight (Ounces): 0.0 Precautions Precautions/Isolations: Fall Prevention, Standard Precautions Referral Physician: Kelly Referral Reason: Evaluation/Treatment Medical History Additional Medical History metastatic prostate cancer, HTN, HLD, diverticulosis, DVT, arthritis Current History fell on R hip 05/23, slid out of bed the following day and couldn't get up so called EMS Social History Home: Multilevel Current Living Status: Spouse Steps Inside Home: 12 12 steps to basement, doesn't have to go into the basement. ADL-Prior Level of Function SCALE: Activities may be completed with or without assistive devices. 0-Zbyqxehcfv-ntscvdq completes the activity by him/herself with no assistance from a helper. 5-Set-up or Clean-up Assistance-helper sets up or cleans up; patient completes activity. [place] assists only prior to or following the activity. 4-Supervision or Touching Assistance-helper provides verbal cues and/or touching/steadying and/or contact guard assistance as patient completes activity. Assistance may be provided throughout the activity or intermittently. 3-Partial/Moderate Assistance-helper does LESS THAN HALF the effort. [place] lifts, holds or supports trunk or limbs, but provides less than half the effort. 2-Substantial/Maximal Assistance-helper does MORE THAN HALF the effort. [place] lifts or holds trunk or limbs and provides more than half the effort. 0-Ghsgvgffs-cqntzx does ALL the effort. Patient does none of the effort to complete the activity. Or, the assistance of 2 or more helpers is required for the patient to complete the activity. If activity was not attempted, code reason: 7-Patient Refused. 9-Not Applicable-not attempted and the patient did not perform the activity before the current illness, exacerbation or injury. 10-Not Attempted due to Environmental Limitations-(lack of equipment, weather restraints, etc.). 88-Not Attempted due to Medical Conditions or Safety Concerns. ADL PLOF Comments Pt reports IND with ADLS and functional mobility at [facility], typically no AD. He has been using a walker or cane recently due to RLE sciatic pain. Pt has a walk in shower, no SC Self Care: Independent Functional Cognition: Independent OT Current Status Subjective Pt in bed, agreeable to OT Tx. Mental Status/Objective Patient Orientation: Person, Place, Time, Situation Attachments: Matos Catheter, IV Current Hearing Aids: Yes Hand Dominance: Left Upper Extremity ROM WFL, BUE shoulder flexion to approx 150 degrees Upper Extremity Coordination WFL Upper Extremity Sensation WFL Upper Extremity Strength grossly 4+/5 ADL-Treatment Eating (QC): 6 Oral Hygiene (QC): 5 On/Off Footwear (QC): 4 (SBA, VCs for pursed lip breathing.) Toileting Hygiene (QC): 4 (SBA) Other Treatments Pt in bed, finished with lunch. Pt demo'd ability to complete footwear, SBA for VCs for pursed lip breathing. O2 saturation dropped to 85%, but when pt sat upright and completed pursed lip breathing, O2 quickly returned to the 90%'s. Pt transferred supine to sit EOB, SBA. Pt used FWW to perform functional mobility in hallways, CGA, then back to his room. CGA sit to/from stands. Pt requests BSC. Post tx, pt on BSC, call light in reach. Pt instructed to use call light when finished, he verbalized understanding, all needs met. Nursing staff aware of pt's positioning. Education OT Patient Education: Correct positioning, Energy conservation, Modified ADL techniques, Progress toward Goal/Update tx plan, Purpose of tx/functional activities, Rehab process Teaching Recipient: Patient Teaching Methods: Discussion Response to Teaching: Verbalize Understanding OT Chcf Goals Career Resource Specialist Goals Time Frame: Jun 01, 2022 Eating (QC): 6 Oral Hygiene (QC): 6 Toileting Hygiene (QC): 6 Shower/Bathe Self (QC): 6 Upper Body Dressing (QC): 6 Lower Body Dressing (QC): 6 On/Off Footwear (QC): 6 Additional Goals: 1-Demonstrate ADL Tasks, 2-Verbalize Understanding, 3- ImproveStrength/Emily 1=Demonstrate adherence to instructed precautions during ADL tasks. 2=Patient will verbalize/demonstrate understanding of assistive devices/modifications for ADL. 3=Patient will improve strength/tolerance for activity to enable patient to perform ADL's. OT Education/Plan Problem List/Assessment Assessment: Decreased Activ Tolerance, Decreased UE Strength, Impaired Funct Balance, Impaired I ADL's, Impaired Self-Care Skills Discharge Recommendations Plan/Recommendations: Continue POC Treatment Plan/Plan of Care Patient would benefit from OT for education, treatment and training to promote independence in ADL's, mobility, safety and/or upper extremity function for ADL's. Plan of Care: ADL Retraining, Functional Mobility, UE Funct Exercise/Act Treatment Duration: Jun 01, 2022 Frequency: 3 times per week (3-5 times per week) Estimated Hrs Per Day: .25 hour per day Agreement: Yes Rehab Potential: Fair Time Start Time: 13:57 Stop Time: 14:14 DATE: May 25, 2022 Total Time Billed (hr/min): 17 Billed Treatment Time 1, GRICEL MARTIN OT May 25, 2022 14:24
--- NOTE | 2022-05-25 14:43 | Physical Therapy Evaluation ---
PT Evaluation-General Medical Diagnosis Admission Date May 24, 2022 at 18:40 Medical Diagnosis: neutropenic fever Onset Date: May 24, 2022 Therapy Diagnosis Therapy Diagnosis: Gait deficit, Strength deficit Height/Weight Height (Feet): 5 Height (Inches): 11.00 Weight (Pounds): 216 Weight (Ounces): 0.0 Precautions Precautions/Isolations: Fall Prevention, Standard Precautions Weight Bear Status Right Lower Extremity: Right Full Weight Bearing Left Lower Extremity: Left Full Weight Bearing Referral Physician: Kelly Reason for Referral: Evaluation/Treatment Medical History Reviewed History: Yes Social History Home: Multilevel Current Living Status: Spouse PT Steps Into Home: 5 PT Steps Inside Home: 12 Prior Prior Level of Function SCALE: Activities may be completed with or without assistive devices. 4-Wqfgjrvmif-gntgxrv completes the activity by him/herself with no assistance from a helper. 5-Set-up or Clean-up Assistance-helper sets up or cleans up; patient completes activity. [place] assists only prior to or following the activity. 4-Supervision or Touching Assistance-helper provides verbal cues and/or touching/steadying and/or contact guard assistance as patient completes activity. Assistance may be provided throughout the activity or intermittently. 3-Partial/Moderate Assistance-helper does LESS THAN HALF the effort. [place] lifts, holds or supports trunk or limbs, but provides less than half the effort. 2-Substantial/Maximal Assistance-helper does MORE THAN HALF the effort. [place] lifts or holds trunk or limbs and provides more than half the effort. 4-Olttmlafk-fanpjg does ALL the effort. Patient does none of the effort to complete the activity. Or, the assistance of 2 or more helpers is required for the patient to complete the activity. If activity was not attempted, code reason: 7-Patient Refused. 9-Not Applicable-not attempted and the patient did not perform the activity before the current illness, exacerbation or injury. 10-Not Attempted due to Environmental Limitations-(lack of equipment, weather restraints, etc.). 88-Not Attempted due to Medical Conditions or Safety Concerns. Bed Mobility: 6 Transfers (B,C,W/C): 6 Gait: 6 Stairs: 6 Indoor Mobility (Ambulation): Independent Stairs: Independent Prior Devices Use: None PT Evaluation-Current Subjective Patient lying supine in bed upon PT arrival, agreeable to treatment. Rates neck pain at 8-9/10 with activity, however at rest reports no pain currently. Objective Patient Orientation: Person, Place, Time, Situation Attachments: Oxygen, Matos Catheter, IV ROM/Strength ROM Lower Extremities WFLs all planes bilaterally Strength Lower Extremities 4+/5 bilaterally all planes Sensory Vision: Functional Hearing: Functional Hand Dominance: Left Sensation Right Lower Extremit: Intact Sensation Left Lower Extremity: Intact Transfers Roll Left to Right (QC): 4 Sit to Lying (QC): 4 Lying to Sitting/Side of Bed(Q: 4 Sit to Stand (QC): 4 Chair/Quj-tp-Ftrox Xfer(QC): 4 Toilet Transfer (QC): 4 Gait Does the Patient Walk?: Yes Mode of Locomotion: Walk Anticipated Mode of Locomotion: Walk Walk 10 feet (QC): 4 Walk 50 ft with 2 Turns(QC): 4 Walk 150 ft (QC): 4 Distance: 150 feet Gait Assistive Device: FWW Balance Sitting Static: Good Sitting Dynamic: Good Standing Static: Fair Standing Dynamic: Fair Assessment/Needs Patient tolerated treatment well. Demonstrates SBA for all bed mobility and CGA for all transfers. He ambulates 150 feet with FWW, with CGA and verbal cues for safety, progression, posture and conservation of energy. Patient ambulates with forward trunk posture, rounded shoulders and head down throughout the gait cycle. Patient on BSC post treatment with all needs met, in the room, call light in reach and nurse notified. Rehab Potential: Good PT Senior Living Goals Senior Living Goals PT Senior Living Goals Time Frame: Jun 16, 2022 Roll Left & Right (QC): 6 Sit to Lying (QC): 6 Lying-Sitting on Side/Bed(QC): 6 Sit to Stand (QC): 6 Chair/Nxa-tb-Mzlaj Xfer(QC): 6 Toilet Transfer (QC): 6 Car Transfer (QC): 6 Does the Patient Walk: Yes Walk 10 feet (QC): 6 Walk 50ft with 2 Turns (QC): 6 Walk 150 ft (QC): 6 Walking 10ft on Uneven Surface: 6 1 Step (curb) (QC): 4 4 Steps (QC): 4 12 Steps (QC): 4 PT Plan Problem List Problem List: Activity Tolerance, Functional Strength, Safety, Balance, Gait, Transfer, Bed Mobility, ROM Treatment/Plan Treatment Plan: Continue Plan of Care Treatment Plan: Bed Mobility, Education, Functional Activity Emily, Functional Strength, Group Therapy, Gait, Safety, Therapeutic Exercise, Transfers Treatment Duration: Jun 16, 2022 Frequency: 6 times per week Estimated Hrs Per Day: .25 hour per day Patient and/or Family Agrees t: Yes Safety Risks/Education Patient Education: Gait Training, Transfer Techniques Teaching Recipient: Patient Teaching Methods: Demonstration, Discussion Response to Teaching: Verbalize Understanding, Return Demonstration Time Time In: 1355 Time Out: 1414 DATE: May 25, 2022 Total Billed Treatment Time: 19 Total Billed Treatment Visit, SILAS Youngblood PT May 25, 2022 14:43
[2022-05-25] MEDS ORDERED: VANCOMYCIN 1 GM/NS 250 ML IVPB IV SCH ×2 (18:00)
[2022-05-25] MEDS: ACETAMINOPHEN 325 MG TABLET PO PRN (21:30)
[2022-05-25] MEDS: ONDANSETRON 4 MG (ZOFRAN) ORAL DISSOLVE TAB PO PRN (21:30)
[2022-05-26] MEDS: ACETAMINOPHEN 325 MG TABLET PO PRN ×2 (02:26→09:22)
[2022-05-26] MEDS: MELATONIN 3 MG TABLET PO PRN (02:26)
[2022-05-26] MEDS: LACTATED RINGERS 1,000 ML IV SCH ×3 (03:38→21:54)
[2022-05-26] MEDS: CEFEPIME INJECTION 1,000 MG in NS (IVPB) 50 ML IV SCH ×5 (06:30→21:55)
[2022-05-26 06:45] LABS: BASOPHILS % (AUTO) 0 % (0-10); EOSINOPHILS % (AUTO) 0 % (0-10); HEMATOCRIT 28 % (40-54); HEMOGLOBIN 9.8 g/dL (13.3-17.7); LYMPHOCYTES # (AUTO) 1.5 10^3/uL (1.0-4.0); LYMPHOCYTES % (AUTO) 12 % (12-44); MEAN CORPUSCULAR HEMOGLOBIN 33 pg (25-34); MEAN CORPUSCULAR HGB CONC 35 g/dL (32-36); MEAN CORPUSCULAR VOLUME 92 fL (80-99); MEAN PLATELET VOLUME 10.2 fL (9.0-12.2); MONOCYTES # (AUTO) 1.1 10^3/uL (0.0-1.0); MONOCYTES % (AUTO) 9 % (0-12); NEUTROPHILS # (AUTO) 8.5 10^3/uL (1.8-7.8); NEUTROPHILS % (AUTO) 65 % (42-75); PLATELET COUNT 204 10^3/uL (130-400); WHITE BLOOD COUNT 12.9 10^3/uL (4.3-11.0)
[2022-05-26 06:59] LABS: ALBUMIN 2.7 GM/DL (3.2-4.5); BILIRUBIN,TOTAL 0.5 MG/DL (0.1-1.0); CALCIUM 8.8 MG/DL (8.5-10.1); CREATININE SERUM 1.2 MG/DL (0.60-1.30); MAGNESIUM 1.7 MG/DL (1.6-2.4); PHOSPHORUS 2.2 MG/DL (2.3-4.7); POTASSIUM 3.6 MMOL/L (3.6-5.0)
[2022-05-26] MEDS: POTASSIUM CL 10MEQ/50ML IVPB 50 ML IV SCH (07:04)
[2022-05-26] MEDS: KCL 20 MEQ TAB (K-DUR) PO SCH (07:04)
[2022-05-26] MEDS: MAGNESIUM 1 GM/100 ML IVPB 100 ML IV SCH ×3 (07:55→09:23)
[2022-05-26 08:00] VITALS: BP 129/62
[2022-05-26] MEDS: ONDANSETRON 4 MG (ZOFRAN) ORAL DISSOLVE TAB PO PRN (09:21)
[2022-05-26] MEDS: SENNOSIDES 8.6 MG (SENOKOT) TAB PO SCH ×2 (09:22→21:00)
[2022-05-26] MEDS: DOCUSATE SODIUM 100 MG (COLACE) CAP PO SCH ×2 (09:22→21:00)
[2022-05-26] MEDS: ENOXAPARIN 40 MG/0.4 ML (LOVENOX) SYR SC SCH (09:22)
[2022-05-26 11:20] VITALS: BP 182/50
[2022-05-26] MEDS: TBO-FILGRASTIM 480 MCG/0.8 ML (GRANIX) SQ SCH (11:57)
--- NOTE | 2022-05-26 12:46 | Progress Note - Hospitalist ---
Subjective HPI/CC On Admission Date Seen by Provider: May 26, 2022 Time Seen by Provider: 12:43 Art is a 77 yo male who was admitted for neutropenic fever and septic shock. Pt has pmhx of metastatic prostate cancer, HTN, HLD, DVT and diverticulosis. Pt reports he fell on his right hip on 05/23 and the following day he slid out of bed and couldn't get up, so they called EMS. Pt just recently started on Taxol chemotherapy a week ago Saturday and states he has been weak ever since. He also has acute sciatic nerve pain since Apr that he is trying to get an injection for, but has not been scheduled yet. D/t these issues, he has become weaker and had these falls. Pt was found to be febrile in the ED. He received 3L of IV fluids and remained hypotensive, so was started on Levophed. Once admitted, general surgeon was consulted for central line placement. Pt was found to have WBC of 0.9. He was started on cefepime and vancomycin for empiric abx therapy. He has also been given filgrastim. Today pt reports he is feeling much better. He is on Room Air with adequate saturations and denies SOA. Pt denies fever, chills, N/V/D, dysuria, frequency, numbness, tingling. ROS neg unless otherwise stated. Subjective/Events-last exam Patient reports he slept poorly last night otherwise feeling better no rigors reported. Denies shortness of breath or chest pain. Also denies abdominal or flank pain. Focused Exam Lactate Level 05/24/22 11:00: Lactic Acid Level 1.94 Time of Focused Exam: 15:00 Objective Exam Vital Signs Vital Signs Date Time Temp Pulse Resp B/P (MAP) Pulse Ox O2 Delivery O2 Flow Rate FiO2 05/26/22 11:20 36.5 87 18 182/50 (94) 94 Room Air 05/26/22 03:44 2.00 05/24/22 21:18 28 Capillary Refill : Less Than 3 Seconds General Appearance: No Apparent Distress, Chronically ill Respiratory: Chest Non Tender, Lungs Clear, Normal Breath Sounds, No Accessory Muscle Use, No Respiratory Distress Cardiovascular: Regular Rate, Rhythm, No Edema, No Gallop, No JVD, No Murmur, Normal Peripheral Pulses Gastrointestinal: Normal Bowel Sounds, No Organomegaly, No Pulsatile Mass, Non Tender, Soft Neurologic/Psychiatric: Alert, Oriented x3 Results/Procedures Lab Laboratory Tests 05/26/22 06:30 Patient resulted labs reviewed. Imaging: Reviewed Imaging Report Assessment/Plan Assessment and Plan Assess & Plan/Chief Complaint Neutropenic Fever Septic Shock d/t gram neg bacteremia. Sepsis resolved likely due to Pseudomonas sensitivity pending but patient clinically responding. With Granix his white count is a little over 12,000 so we will discontinue. Insomnia may be due to a combination of improvement in severe sepsis with withdrawal of gabapentin we will resume previous gabapentin dosage as his only complaint currently is recurrence of right-sided sciatica. TANNER Anemia Metastatic prostate cancer on chemotherapy Neutropenic Fever -Resolved -WBC 2.7 -Afebrile today Septic Shock d/t gram neg bacteremia -3L of IV fluids given -Wean off levophed, pressures have been stable -Blood cultures showed gram negative bacillus -Continue cefepime -D/c Vancomycin, low risk for MRSA -Dr. Crum consulted and central line placed TANNER -BUN and Cr 33 and 1.49 respectively -Improving with fluids Anemia Metastatic prostate cancer on chemotherapy Disposition: Pt will likely stay another 24 hours to wean off levophed and monitor pressures as well as receive IV abx for gram negative sepsis. Diet: Low sodium DVT ppx: Lovenox Code status: Full Code Critical Care Critically Ill Patient VAISHNAVI AGUILAR MD May 26, 2022 12:46
[2022-05-26] MEDS ORDERED: VENlafaxine XR 75 MG (EFFEXOR XR) CAP PO ONE (13:00)
[2022-05-26] MEDS: GABAPENTIN 300 MG (NEURONTIN) CAP PO SCH ×2 (13:13→21:55)
--- NOTE | 2022-05-26 13:35 | Physical Therapy Daily Note ---
PT Daily Note-Current Subjective Pt is in the bedside chair. He is agreeable to treatment and eager to walk. Pain Section J - Health Conditions 1. Rarely or not at all 2. Occasionally 3. Frequently 4. Almost constantly 8. Unable to answer Pain Effect on Sleep: 1 Pain Interference with Therapy: 1 Pain Interference w/Day-to-Day: 1 Appearance Alert and oriented. Mental Status Patient Orientation: Person, Place, Time, Situation Attachments: Matos Catheter, IV Transfers SCALE: Activities may be completed with or without assistive devices. 9-Hhhtnummhd-bgbunxp completes the activity by him/herself with no assistance from a helper. 5-Set-up or Clean-up Assistance-helper sets up or cleans up; patient completes activity. [place] assists only prior to or following the activity. 4-Supervision or Touching Assistance-helper provides verbal cues and/or touching/steadying and/or contact guard assistance as patient completes activity. Assistance may be provided throughout the activity or intermittently. 3-Partial/Moderate Assistance-helper does LESS THAN HALF the effort. [place] lifts, holds or supports trunk or limbs, but provides less than half the effort. 2-Substantial/Maximal Assistance-helper does MORE THAN HALF the effort. [place] lifts or holds trunk or limbs and provides more than half the effort. 5-Ilbjbulhv-nqehox does ALL the effort. Patient does none of the effort to complete the activity. Or, the assistance of 2 or more helpers is required for the patient to complete the activity. If activity was not attempted, code reason: 7-Patient Refused. 9-Not Applicable-not attempted and the patient did not perform the activity before the current illness, exacerbation or injury. 10-Not Attempted due to Environmental Limitations-(lack of equipment, weather restraints, etc.). 88-Not Attempted due to Medical Conditions or Safety Concerns. Roll Left & Right (QC): 5 Sit to Lying (QC): 5 Lying to Sitting/Side of Bed(Q: 5 Sit to Stand (QC): 5 Chair/Bfw-rh-Mcoxo Xfer(QC): 5 Weight Bearing Right Lower Extremity: Right Full Weight Bearing Left Lower Extremity: Left Full Weight Bearing Gait Training Does the Patient Walk?: Yes Distance: 300ft Walk 10 feet (QC): 6 Walk 50 ft with 2 Turns(QC): 6 Walk 150 ft (QC): 6 Gait Persons Needed: 1 Gait Assistive Device: None Pt held onto the IV pole and was able to (I) manage the IV pole while ambulating. Wheelchair Training Does the Pt Use a Wheelchair?: No Assessment Current Status: Excellent Progress Pt is performing transfers and bed mobility without assistance. He is ambulating with no difficulty. PT Die Cutter Goals Die Cutter Goals PT Residential Goals Time Frame: Jun 16, 2022 Roll Left & Right (QC): 6 Sit to Lying (QC): 6 Lying-Sitting on Side/Bed(QC): 6 Sit to Stand (QC): 6 Chair/Oxc-nn-Kklvj Xfer(QC): 6 Toilet Transfer (QC): 6 Car Transfer (QC): 6 Does the Patient Walk: Yes Walk 10 feet (QC): 6 Walk 50ft with 2 Turns (QC): 6 Walk 150 ft (QC): 6 Walking 10ft on Uneven Surface: 6 1 Step (curb) (QC): 4 4 Steps (QC): 4 12 Steps (QC): 4 PT Plan Treatment/Plan Treatment Plan: Continue Plan of Care Treatment Plan: Bed Mobility, Education, Functional Activity Emily, Functional Strength, Group Therapy, Gait, Safety, Therapeutic Exercise, Transfers Treatment Duration: Jun 16, 2022 Frequency: 6 times per week Estimated Hrs Per Day: .25 hour per day Patient and/or Family Agrees t: Yes Time Time In: 1010 Time Out: 1025 DATE: May 26, 2022 Total Billed Treatment Time: 15 Total Billed Treatment 1, gt 15 GRETA JO PT May 26, 2022 13:35
[2022-05-26 16:30] VITALS: BP 161/75
[2022-05-26] MEDS ORDERED: TROUGH ORDER-PHARMACY XX NR (17:00)
[2022-05-26 21:00] VITALS: BP 133/64
[2022-05-27 00:07] VITALS: BP 145/74
[2022-05-27 03:28] VITALS: BP 131/81
[2022-05-27 05:05] LABS: BASOPHILS # (AUTO) 0.1 10^3/uL (0.0-0.1); BASOPHILS % (AUTO) 0 % (0-10); EOSINOPHILS % (AUTO) 0 % (0-10); HEMATOCRIT 25 % (40-54); HEMOGLOBIN 8.6 g/dL (13.3-17.7); LYMPHOCYTES % (AUTO) 6 % (12-44); MEAN CORPUSCULAR HEMOGLOBIN 32 pg (25-34); MEAN CORPUSCULAR HGB CONC 35 g/dL (32-36); MEAN CORPUSCULAR VOLUME 93 fL (80-99); MONOCYTES # (AUTO) 2.2 10^3/uL (0.0-1.0); MONOCYTES % (AUTO) 6 % (0-12); NEUTROPHILS # (AUTO) 26.4 10^3/uL (1.8-7.8); NEUTROPHILS % (AUTO) 74 % (42-75); PLATELET COUNT 229 10^3/uL (130-400)
[2022-05-27 05:09] LABS: WHITE BLOOD COUNT 35.9 10^3/uL (4.3-11.0)
[2022-05-27 05:20] LABS: ALBUMIN 2.8 GM/DL (3.2-4.5); BILIRUBIN,TOTAL 0.4 MG/DL (0.1-1.0); CALCIUM 8.9 MG/DL (8.5-10.1); CREATININE SERUM 1.2 MG/DL (0.60-1.30); PHOSPHORUS 2.5 MG/DL (2.3-4.7); POTASSIUM 3.9 MMOL/L (3.6-5.0); TOTAL PROTEIN 5.2 GM/DL (6.4-8.2)
[2022-05-27 07:03] LABS: BAND NEUTROPHILS 6 %; HYPOCHROMASIA SLIGHT; LYMPHOCYTES % (MANUAL) 7 %; MONOCYTES % (MANUAL) 7 %; NEUTROPHILS % (MANUAL) 76 %; PROLYMPHOCYTE % 4 %
[2022-05-27] MEDS: CEFEPIME INJECTION 1,000 MG in NS (IVPB) 50 ML IV SCH ×3 (07:15→22:08)
[2022-05-27] MEDS: VENlafaxine XR 75 MG (EFFEXOR XR) CAP PO SCH (07:16)
[2022-05-27 07:43] VITALS: BP 144/68
[2022-05-27] MEDS: MAGNESIUM 1 GM/100 ML IVPB 100 ML IV SCH (07:44)
[2022-05-27] MEDS: POTASSIUM CL 10MEQ/50ML IVPB 50 ML IV SCH (07:44)
[2022-05-27] MEDS: KCL 20 MEQ TAB (K-DUR) PO SCH (07:45)
[2022-05-27] MEDS: LACTATED RINGERS 1,000 ML IV SCH (07:56)
[2022-05-27] MEDS: DOCUSATE SODIUM 100 MG (COLACE) CAP PO SCH ×2 (07:59→22:06)
[2022-05-27] MEDS: GABAPENTIN 300 MG (NEURONTIN) CAP PO SCH ×3 (08:00→22:06)
[2022-05-27] MEDS: SENNOSIDES 8.6 MG (SENOKOT) TAB PO SCH ×2 (08:00→22:07)
[2022-05-27] MEDS: ENOXAPARIN 40 MG/0.4 ML (LOVENOX) SYR SC SCH (08:02)
[2022-05-27 11:25] VITALS: BP 136/70
--- NOTE | 2022-05-27 11:31 | Progress Note - Hospitalist ---
Subjective HPI/CC On Admission Date Seen by Provider: May 27, 2022 Time Seen by Provider: 11:00 Art is a 77 yo male who was admitted for neutropenic fever and septic shock. Pt has pmhx of metastatic prostate cancer, HTN, HLD, DVT and diverticulosis. Pt reports he fell on his right hip on 05/23 and the following day he slid out of bed and couldn't get up, so they called EMS. Pt just recently started on Taxol chemotherapy a week ago Saturday and states he has been weak ever since. He also has acute sciatic nerve pain since Apr that he is trying to get an injection for, but has not been scheduled yet. D/t these issues, he has become weaker and had these falls. Pt was found to be febrile in the ED. He received 3L of IV fluids and remained hypotensive, so was started on Levophed. Once admitted, general surgeon was consulted for central line placement. Pt was found to have WBC of 0.9. He was started on cefepime and vancomycin for empiric abx therapy. He has also been given filgrastim. Today pt reports he is feeling much better. He is on Room Air with adequate saturations and denies SOA. Pt denies fever, chills, N/V/D, dysuria, frequency, numbness, tingling. ROS neg unless otherwise stated. Subjective/Events-last exam Patient reports he slept much better and his sciatica is better back on gabapentin. He denies night sweats chills fever abdominal pain chest pain or cough. He reports a formed stool this morning but he woke up having the bowel movement in bed. He denied any associated pain. He is alert and oriented this morning. Focused Exam Time of Focused Exam: 15:00 Objective Exam Vital Signs Vital Signs Date Time Temp Pulse Resp B/P (MAP) Pulse Ox O2 Delivery O2 Flow Rate FiO2 05/27/22 09:00 94 Room Air 05/27/22 07:43 36.5 101 18 144/68 (93) 05/27/22 03:28 2.00 05/24/22 21:18 28 Capillary Refill : Less Than 3 Seconds General Appearance: No Apparent Distress, Chronically ill Respiratory: Chest Non Tender, Lungs Clear, Normal Breath Sounds, No Accessory Muscle Use, No Respiratory Distress Cardiovascular: Regular Rate, Rhythm, No Edema, No Gallop, No JVD, No Murmur, Normal Peripheral Pulses Gastrointestinal: Normal Bowel Sounds, No Organomegaly, No Pulsatile Mass, Non Tender, Soft Results/Procedures Lab Laboratory Tests 05/27/22 04:45 Patient resulted labs reviewed. Imaging: Reviewed Imaging Report Assessment/Plan Assessment and Plan Assess & Plan/Chief Complaint Neutropenic Fever Septic Shock d/t gram neg bacteremia. Sepsis resolved due to Pseudomonas sensitivity pending but patient clinically responding. White count was over 30,000 with no evidence for ongoing infection compatible with Granix infusion which was discontinued having received his last dose yesterday. Will DC Matos today. Pseudomonas sensitivities still pending which may have a bearing on timing of discharge if it is quinolone resistant. TANNER Anemia Metastatic prostate cancer on chemotherapy Neutropenic Fever -Resolved -WBC 2.7 -Afebrile today Septic Shock d/t gram neg bacteremia -3L of IV fluids given -Wean off levophed, pressures have been stable -Blood cultures showed gram negative bacillus -Continue cefepime -D/c Vancomycin, low risk for MRSA -Dr. Crum consulted and central line placed TANNER -BUN and Cr 33 and 1.49 respectively -Improving with fluids Anemia Metastatic prostate cancer on chemotherapy Disposition: Pt will likely stay another 24 hours to wean off levophed and monitor pressures as well as receive IV abx for gram negative sepsis. Diet: Low sodium DVT ppx: Lovenox Code status: Full Code Critical Care Critically Ill Patient VAISHNAVI AGUILAR MD May 27, 2022 11:31
[2022-05-27 16:20] VITALS: BP 143/71
[2022-05-27 20:15] VITALS: BP 168/77
[2022-05-27] MEDS: MELATONIN 3 MG TABLET PO PRN (22:07)
[2022-05-27] MEDS: ACETAMINOPHEN 325 MG TABLET PO PRN (22:07)
[2022-05-28 00:12] VITALS: BP 151/78
[2022-05-28 01:17] VITALS: BP 151/78
[2022-05-28 03:44] VITALS: BP 115/55
[2022-05-28] MEDS: CEFEPIME INJECTION 1,000 MG in NS (IVPB) 50 ML IV SCH (05:27)
[2022-05-28] MEDS: VENlafaxine XR 75 MG (EFFEXOR XR) CAP PO SCH (05:28)
[2022-05-28 05:46] LABS: BASOPHILS # (AUTO) 0.1 10^3/uL (0.0-0.1); BASOPHILS % (AUTO) 1 % (0-10); EOSINOPHILS % (AUTO) 0 % (0-10); HEMATOCRIT 26 % (40-54); LYMPHOCYTES # (AUTO) 1.7 10^3/uL (1.0-4.0); LYMPHOCYTES % (AUTO) 10 % (12-44); MEAN CORPUSCULAR HEMOGLOBIN 32 pg (25-34); MEAN CORPUSCULAR HGB CONC 35 g/dL (32-36); MEAN CORPUSCULAR VOLUME 93 fL (80-99); MEAN PLATELET VOLUME 9.9 fL (9.0-12.2); MONOCYTES # (AUTO) 1.4 10^3/uL (0.0-1.0); MONOCYTES % (AUTO) 8 % (0-12); NEUTROPHILS # (AUTO) 10.7 10^3/uL (1.8-7.8); NEUTROPHILS % (AUTO) 64 % (42-75); PLATELET COUNT 203 10^3/uL (130-400); WHITE BLOOD COUNT 16.7 10^3/uL (4.3-11.0)
[2022-05-28] MEDS: MAGNESIUM 1 GM/100 ML IVPB 100 ML IV SCH (06:00)
[2022-05-28] MEDS: POTASSIUM CL 10MEQ/50ML IVPB 50 ML IV SCH (06:00)
[2022-05-28 06:14] LABS: ALBUMIN 2.7 GM/DL (3.2-4.5); BILIRUBIN,TOTAL 0.4 MG/DL (0.1-1.0); CALCIUM 8.6 MG/DL (8.5-10.1); CREATININE SERUM 1.16 MG/DL (0.60-1.30); MAGNESIUM 1.8 MG/DL (1.6-2.4); PHOSPHORUS 3.4 MG/DL (2.3-4.7); POTASSIUM 3.5 MMOL/L (3.6-5.0); TOTAL PROTEIN 4.8 GM/DL (6.4-8.2)
[2022-05-28] MEDS: KCL 20 MEQ TAB (K-DUR) PO SCH (08:19)
[2022-05-28 08:25] VITALS: BP 135/73
[2022-05-28] MEDS: SENNOSIDES 8.6 MG (SENOKOT) TAB PO SCH (08:57)
[2022-05-28] MEDS: DOCUSATE SODIUM 100 MG (COLACE) CAP PO SCH (08:57)
[2022-05-28] MEDS: ENOXAPARIN 40 MG/0.4 ML (LOVENOX) SYR SC SCH (08:57)
[2022-05-28] MEDS: GABAPENTIN 300 MG (NEURONTIN) CAP PO SCH ×2 (08:57→13:40)
[2022-05-28] MEDS ORDERED: KCL 20 MEQ TAB (K-DUR) PO NR (09:00)
--- NOTE | 2022-05-28 10:26 | Physical Therapy Daily Note ---
PT Daily Note-Current Subjective Pt found laying in bed upon entry. Agreed to PT. Reports that he had a fall a week ago. States that falls are more from sciatic pain and not from instability. Does not describe or rate pain. Pt states she forgot to bring his cane to the hospital to practice /c. Pain Section J - Health Conditions 1. Rarely or not at all 2. Occasionally 3. Frequently 4. Almost constantly 8. Unable to answer Pain Effect on Sleep: 1 Pain Interference with Therapy: 1 Pain Interference w/Day-to-Day: 1 Mental Status Patient Orientation: Normal For Age Transfers SCALE: Activities may be completed with or without assistive devices. 5-Nygiuzyzwo-tmguinn completes the activity by him/herself with no assistance from a helper. 5-Set-up or Clean-up Assistance-helper sets up or cleans up; patient completes activity. [place] assists only prior to or following the activity. 4-Supervision or Touching Assistance-helper provides verbal cues and/or touching/steadying and/or contact guard assistance as patient completes activity. Assistance may be provided throughout the activity or intermittently. 3-Partial/Moderate Assistance-helper does LESS THAN HALF the effort. [place] lifts, holds or supports trunk or limbs, but provides less than half the effort. 2-Substantial/Maximal Assistance-helper does MORE THAN HALF the effort. [place] lifts or holds trunk or limbs and provides more than half the effort. 4-Guybjzmat-ainfht does ALL the effort. Patient does none of the effort to complete the activity. Or, the assistance of 2 or more helpers is required for the patient to complete the activity. If activity was not attempted, code reason: 7-Patient Refused. 9-Not Applicable-not attempted and the patient did not perform the activity before the current illness, exacerbation or injury. 10-Not Attempted due to Environmental Limitations-(lack of equipment, weather restraints, etc.). 88-Not Attempted due to Medical Conditions or Safety Concerns. Sit to Lying (QC): 6 Lying to Sitting/Side of Bed(Q: 6 Sit to Stand (QC): 6 Toilet Transfer (QC): 6 Pt independent /c all trfs. Weight Bearing Right Lower Extremity: Right Full Weight Bearing Left Lower Extremity: Left Full Weight Bearing Gait Training Does the Patient Walk?: Yes Distance: 300ft Walk 10 feet (QC): 5 Walk 50 ft with 2 Turns(QC): 5 Walk 150 ft (QC): 5 Gait Persons Needed: 1 Gait Assistive Device: FWW Pt SBA /c gait training. Amb. 300ft total. Assessment Current Status: Good Progress Pt tolerated Tx well. Reports that pain increases the more he amb. Continue to progress pt as tolerated per POC to decrease pain, increase functional ability, and endurance. PT Leasing Associate Goals Fdc Goals PT Leasing Associate Goals Time Frame: Jun 16, 2022 Roll Left & Right (QC): 6 Sit to Lying (QC): 6 Lying-Sitting on Side/Bed(QC): 6 Sit to Stand (QC): 6 Chair/Vsy-xv-Lrxgx Xfer(QC): 6 Toilet Transfer (QC): 6 Car Transfer (QC): 6 Does the Patient Walk: Yes Walk 10 feet (QC): 6 Walk 50ft with 2 Turns (QC): 6 Walk 150 ft (QC): 6 Walking 10ft on Uneven Surface: 6 1 Step (curb) (QC): 4 4 Steps (QC): 4 12 Steps (QC): 4 PT Plan Treatment/Plan Treatment Plan: Continue Plan of Care Treatment Plan: Bed Mobility, Education, Functional Activity Emily, Functional Strength, Group Therapy, Gait, Safety, Therapeutic Exercise, Transfers Treatment Duration: Jun 16, 2022 Frequency: 6 times per week Estimated Hrs Per Day: .25 hour per day Patient and/or Family Agrees t: Yes Time Time In: 922 Time Out: 954 DATE: May 28, 2022 Total Billed Treatment Time: 32 Total Billed Treatment 1 visit FA 1x GT 1x NIKITA BELL IN STORE BANKER May 28, 2022 10:26
--- NOTE | 2022-05-28 10:42 | D/C HH Face to Face Order ---
D/C Face to Face Orders Instructions for Patient Via [facility], Patient Instructions/FollowUp: Please continue to take your medications as written. Please follow up with Dr Bennett and Dr Tijerina as scheduled Physician to follow Patient: Dr Tijerina Discharge Diet for Home: No Restrictions Patient Data-Allergies,Ht & Wt Patient Allergies: Coded Allergies: No Known Drug Allergies (Unverified , 08/19/20) Height (Feet): 5 Height (Inches): 11.00 Weight (Pounds): 216 Weight (Ounces): 0.0 Home Health Need/Face to Face Date of Face to Face: May 28, 2022 Clinical Findings: Generalized weakness and fatigue, Immune-compromised I have seen Pt mjef-am-qrby: Yes Discharged To: Home Diagnosis/Conditions: Neutropenic fever, prostate cancer Patient is Homebound due to: Muscle weakness Homebound Status Due to the above stated illness, injury or surgical procedure (medical condition or diagnosis) and associated clinical findings, the patient is homebound because of his/her inability to leave home except with aid of a supportive device and/or person AND leaving the home requires a considerable and taxing effort or is medically contraindicated. Pt req the following assistanc: Aid of another person, Cane, Walker Home Health Nursing Orders Home Health Services Order: Nursing Services, Straight Cutter-Evaluate & Treat, Physical Therapy-Evaluate & Treat Home Health Infusion Therapy Line Start Date: May 24, 2022 Therapy Orders Therapy Orders: OT (must have SN or PT order), Physical Therapy Therapy Specific Orders: Eval assistive deivces, Teach enviro modifications/safety, Gait training, Increase strength/endurance Certify Stmt I certify that this patient is under my care and that I, a nurse practitioner or a physician; a mechanic's assistant working with me, had a face to face encounter that - meets the physician face to face encounter requirements with this patient as dated. IMAN HAWKINS MD May 28, 2022 10:42
[2022-05-28] MEDS ORDERED: LEVO750T PO (10:45)
--- NOTE | 2022-05-28 10:52 | Discharge Summary ---
Diagnosis/Chief Complaint Date of Admission May 24, 2022 at 18:40 Date of Discharge Discharge Date: May 28, 2022 Admission Diagnosis Primary Care Jt Tijerina MD Discharge Diagnosis (1) Neutropenic fever Status: Acute (2) Septic shock Status: Acute (3) Prostate cancer metastatic to intrapelvic lymph node Status: Acute (4) Acute kidney injury superimposed on chronic kidney disease Status: Acute Discharge Summary Discharge Physical Exam Allergies: Coded Allergies: No Known Drug Allergies (Unverified , 08/19/20) Vitals & I&Os Vital Signs Date Time Temp Pulse Resp B/P (MAP) Pulse Ox O2 Delivery O2 Flow Rate FiO2 05/28/22 08:25 36.2 91 18 135/73 (93) 97 Nasal Cannula 4.50 05/28/22 01:17 32 Hospital Course Labs (last 24 hrs) Laboratory Tests 05/28/22 05:15: White Blood Count 16.7H, Red Blood Count 2.79L, Hemoglobin 9.0L, Hematocrit 26L, Mean Corpuscular Volume 93, Mean Corpuscular Hemoglobin 32, Mean Corpuscular Hemoglobin Concent 35, Red Cell Distribution Width 12.8, Platelet Count 203, Mean Platelet Volume 9.9, Immature Granulocyte % (Auto) 16, Neutrophils (%) (Auto) 64, Lymphocytes (%) (Auto) 10L, Monocytes (%) (Auto) 8, Eosinophils (%) (Auto) 0, Basophils (%) (Auto) 1, Neutrophils # (Auto) 10.7H, Lymphocytes # (Auto) 1.7, Monocytes # (Auto) 1.4H, Eosinophils # (Auto) 0.0, Basophils # (Auto) 0.1, Immature Granulocyte # (Auto) 2.7H, Sodium Level 140, Potassium Level 3.5L, Chloride Level 109H, Carbon Dioxide Level 22, Anion Gap 9, Blood Urea Nitrogen 16, Creatinine 1.16, Estimat Glomerular Filtration Rate 64, BUN/Creatinine Ratio 14, Glucose Level 95, Calcium Level 8.6, Corrected Calcium 9.6, Phosphorus Level 3.4, Magnesium Level 1.8, Total Bilirubin 0.4, Aspartate Amino Transf (AST/SGOT) 50H, Alanine Aminotransferase (ALT/SGPT) 50, Alkaline Phosphatase 83, Total Protein 4.8L, Albumin 2.7L Microbiology 05/24/22 MRSA Screen - Final, Complete MRSA not isolated 05/24/22 Urine Culture - Final, Complete NO GROWTH 05/24/22 Blood Culture - Preliminary, Resulted No growth Patient resulted labs reviewed. Pending Labs Laboratory Tests 05/28/22 05:15: White Blood Count 16.7, Red Blood Count 2.79, Hemoglobin 9.0, Hematocrit 26, Mean Corpuscular Volume 93, Mean Corpuscular Hemoglobin 32, Mean Corpuscular Hemoglobin Concent 35, Red Cell Distribution Width 12.8, Platelet Count 203, Mean Platelet Volume 9.9, Immature Granulocyte % (Auto) 16, Neutrophils (%) (Auto) 64, Lymphocytes (%) (Auto) 10, Monocytes (%) (Auto) 8, Eosinophils (%) (Auto) 0, Basophils (%) (Auto) 1, Neutrophils # (Auto) 10.7, Lymphocytes # (Auto) 1.7, Monocytes # (Auto) 1.4, Eosinophils # (Auto) 0.0, Basophils # (Auto) 0.1, Immature Granulocyte # (Auto) 2.7, Sodium Level 140, Potassium Level 3.5, Chloride Level 109, Carbon Dioxide Level 22, Anion Gap 9, Blood Urea Nitrogen 16, Creatinine 1.16, Estimat Glomerular Filtration Rate 64, BUN/Creatinine Ratio 14, Glucose Level 95, Calcium Level 8.6, Corrected Calcium 9.6, Phosphorus Level 3.4, Magnesium Level 1.8, Total Bilirubin 0.4, Aspartate Amino Transf (AST/SGOT) 50, Alanine Aminotransferase (ALT/SGPT) 50, Alkaline Phosphatase 83, Total Protein 4.8, Albumin 2.7 Imaging: Reviewed Imaging Report Discharge Home Medications: Active Scripts Active Levofloxacin 750 Mg Tablet 750 Mg PO DAILY Reported Aleve (Naproxen Sodium) 220 Mg Tablet 220 Mg PO BID Viactiv 650 mg-12.5 Mcg Chew (Calcium Carb/Vitamin D3/Vit K1) 650 Mg Calcium- 12.5 Mcg-40 Mcg Tab.chew 2 Each PO 1200 Glucosamine HCl 500 Mg Tablet 1,000 Mg PO 1200 Oxybutynin Chloride ER (Oxybutynin Chloride) 10 Mg Tab.er.24 10 Mg PO DAILY Neurontin (Gabapentin) 300 Mg Capsule 300 Mg PO TID Venlafaxine HCl ER (Venlafaxine HCl) 75 Mg Cap.er.24h 75 Mg PO DAILY Ondansetron HCl 8 Mg Tablet 8 Mg PO Q8H PRN Dexamethasone 4 Mg Tablet 8 Mg PO BID PRN TAKES 2 (4MG) TABS Prednisone 5 Mg Tablet 5 Mg PO BID Pantoprazole Sodium 40 Mg Tablet.dr 40 Mg PO DAILY PRN Cyclobenzaprine HCl 10 Mg Tablet 10 Mg PO HS PRN Irbesartan-Hctz 300-12.5 mg Tb (Irbesartan/Hydrochlorothiazide) 300 Mg-12.5 Mg Tablet 1 Ea PO DAILY Megestrol Acetate 20 Mg Tablet 20 Mg PO BID Simvastatin 40 Mg Tablet 40 Mg PO HS Instructions to patient/family Please see electronic discharge instructions given to patient. IMAN HAWKINS MD May 28, 2022 10:52
--- NOTE | 2022-05-28 11:13 | Occupational Ther Daily Note ---
OT Current Status-Daily Note Subjective Pt alert, lying in bed. Pt to discharge later this afternoon to home. Pt agrees to therapy. No c/o pain. Mental Status/Objective Patient Orientation: Person, Place, Time, Situation ADL-Treatment Pt independent with eating. Pt independent standing at sink to complete oral care. Independent with toilet transfer and toileting. Pt using FWW to ambulate from room <--> bathroom. After session, pt lying in bed with call light/phone in reach. All needs met in room. Therapy Code Descriptions/Definitions Functional [place] Measure: 0=Not Assessed/NA 4=Minimal Assistance 1=Total Assistance 5=Supervision or Setup 2=Maximal Assistance 6=Modified [place] 3=Moderate Assistance 7=Complete IndependenceSCALE: Activities may be completed with or without assistive devices. 4-Nkwryawxba-ghteukv completes the activity by him/herself with no assistance from a helper. 5-Set-up or Clean-up Assistance-helper sets up or cleans up; patient completes activity. [place] assists only prior to or following the activity. 4-Supervision or Touching Assistance-helper provides verbal cues and/or touching/steadying and/or contact guard assistance as patient completes activity. Assistance may be provided throughout the activity or intermittently. 3-Partial/Moderate Assistance-helper does LESS THAN HALF the effort. [place] lifts, holds or supports trunk or limbs, but provides less than half the effort. 2-Substantial/Maximal Assistance-helper does MORE THAN HALF the effort. [place] lifts or holds trunk or limbs and provides more than half the effort. 8-Yectbojhj-yuyxma does ALL the effort. Patient does none of the effort to complete the activity. Or, the assistance of 2 or more helpers is required for the patient to complete the activity. If activity was not attempted, code reason: 7-Patient Refused. 9-Not Applicable-not attempted and the patient did not perform the activity before the current illness, exacerbation or injury. 10-Not Attempted due to Environmental Limitations-(lack of equipment, weather restraints, etc.). 88-Not Attempted due to Medical Conditions or Safety Concerns. Eating (QC): 6 Oral Hygiene (QC): 6 Toileting Hygiene (QC): 6 Toilet Transfer (QC): 6 OT Half-Way Goals Dye Tank Tender Goals Time Frame: Jun 01, 2022 Eating (QC): 6 Oral Hygiene (QC): 6 Toileting Hygiene (QC): 6 Shower/Bathe Self (QC): 6 Upper Body Dressing (QC): 6 Lower Body Dressing (QC): 6 On/Off Footwear (QC): 6 Additional Goals: 1-Demonstrate ADL Tasks, 2-Verbalize Understanding, 3- ImproveStrength/Emily 1=Demonstrate adherence to instructed precautions during ADL tasks. 2=Patient will verbalize/demonstrate understanding of assistive devices/m odifications for ADL. 3=Patient will improve strength/tolerance for activity to enable patient to perform ADL's. OT Education/Plan Problem List/Assessment Assessment: Decreased Activ Tolerance Discharge Recommendations Plan/Recommendations: Continue POC Treatment Plan/Plan of Care Patient would benefit from OT for education, treatment and training to promote independence in ADL's, mobility, safety and/or upper extremity function for ADL's. Plan of Care: ADL Retraining, Functional Mobility, UE Funct Exercise/Act Treatment Duration: Jun 01, 2022 Frequency: 3 times per week (3-5 times per week) Estimated Hrs Per Day: .25 hour per day Agreement: Yes Rehab Potential: Good Time Start Time: 10:55 Stop Time: 11:20 DATE: May 28, 2022 Total Time Billed (hr/min): 25 Billed Treatment Time 1 visit-ADL 2 (25 min) SHASHI REYES May 28, 2022 11:13
[2022-05-28 11:24] VITALS: BP 142/69
[2022-05-28] MEDS ORDERED: CEFEPIME INJECTION 1,000 MG in NS (IVPB) 50 ML IV SCH (13:00)
[2022-05-28 16:43] VITALS: BP 142/69
== END 2022-05-28 16:52 | disposition home health service (06) | DRG 871 ==
LOC: EDUNIT# 10:50 → ER 10:52 → ICU 18:40 → 4TH 05-25 22:03
PROVIDERS: ADMIT Internal Medicine; ATTEND Internal Medicine
PROC: 02HV33Z Insertion of Infusion Device into Superior Vena Cava, Percutaneous Approach (ICD-10-PCS; principal; 2022-05-24)
DX: A41.52 Sepsis due to Pseudomonas (principal); R65.21 Severe sepsis with septic shock; C77.1 Secondary and unspecified malignant neoplasm of intrathoracic lymph nodes; N17.9 Acute kidney failure, unspecified; D70.1 Agranulocytosis secondary to cancer chemotherapy; T45.1X5A Adverse effect of antineoplastic and immunosuppressive drugs, initial encounter; R50.81 Fever presenting with conditions classified elsewhere; E86.0 Dehydration; C61 Malignant neoplasm of prostate; Z20.822 Contact with and (suspected) exposure to COVID-19; M54.31 Sciatica, right side; D64.9 Anemia, unspecified; I12.9 Hypertensive chronic kidney disease with stage 1 through stage 4 chronic kidney disease, or unspecified chronic kidney disease; N18.9 Chronic kidney disease, unspecified; E78.00 Pure hypercholesterolemia, unspecified; K57.90 Diverticulosis of intestine, part unspecified, without perforation or abscess without bleeding; M19.91 Primary osteoarthritis, unspecified site; H54.3 Unqualified visual loss, both eyes; S70.02XA Contusion of left hip, initial encounter; S30.1XXA Contusion of abdominal wall, initial encounter; Z91.81 History of falling; Z79.1 Long term (current) use of non-steroidal anti-inflammatories (NSAID); Z79.52 Long term (current) use of systemic steroids; Z86.718 Personal history of other venous thrombosis and embolism; W19.XXXA Unspecified fall, initial encounter
CPT/HCPCS: 36415; 70450; 71045; 71250; 72125; 74176; 80053; 81000; 83605; 83735; 84100; 84145; 85007; 85025; 85027; 85610; 85730; 86141; 87040; 87077; 87081; 87088; 87186; 87636; 94760; 96361; 96365; 96366; 96367; 96368; 96375

== ENCOUNTER → 2022-07-13 | Outpatient (CLI) | payer MEDICARE, OTHER ==
[~2022-07-13] MED LIST changes: +CALC-1049 PO; +CYCL10TA25 PO; +DEXA4TAB PO; +GABA300C PO; +GLUC500T10 PO; +IRBE1TAB43 PO; +LEVO750T PO; +NAPR220T66 PO; +ONDA-106 PO; +OXYB10TA29 PO; +PANT40TA52 PO; +PRED5TAB PO; +VENL75CA93 PO
--- NOTE | 2022-07-13 18:23 | Diagnostic Imaging Report ---
INDICATION: Prostate cancer. TECHNIQUE: Whole body bone scan performed in the routine fashion and compared to prior study of 10/26/2021. 25.6 mCi of technetium-99m MDP was given. FINDINGS: There is physiologic uptake of the tracer throughout the skeleton. There are two foci of increased uptake near the costovertebral junctions of the right 11th and 10th ribs. Given its distribution, the findings are most likely post-traumatic. There is no convincing evidence of osseous metastatic disease. Left hydronephrotic changes have improved compared to the prior study. IMPRESSION: No convincing evidence of osseous metastatic disease. There are two consecutive areas of increased uptake over the right 10th and 11th costovertebral junctions, most likely post-traumatic given its distribution. Dictated by: Dictated on workstation # [id number]
== END ==
LOC: CARD 12:00
PROVIDERS: ATTEND Nurse Practitioner Adult Health
DX: C61 Malignant neoplasm of prostate (principal); C77.2 Secondary and unspecified malignant neoplasm of intra-abdominal lymph nodes; M54.51 Vertebrogenic low back pain
CPT/HCPCS: 78306; A9503

== ENCOUNTER → 2022-10-19 | Outpatient (CLI) | payer MEDICARE, OTHER ==
--- NOTE | 2022-10-19 12:04 | Diagnostic Imaging Report ---
EXAMINATION: US Right Lower Extremity Venous Duplex. TECHNIQUE: Multiple real-time grayscale images were obtained over the right lower extremity in various projections. Additional spectral analysis and color Doppler duplex images were also obtained. HISTORY: Right lower extremity edema and pain. COMPARISON: 07/03/2021. FINDINGS: The right common femoral vein, deep femoral vein, superficial femoral vein and popliteal vein are patent with normal wallis scale and doppler appearance. There is normal respiratory variation and augmentation. The visualized calf vessels are patent. IMPRESSION: 1. No DVT of the right lower extremity. Dictated by: Dictated on workstation # [id number]
== END ==
LOC: RAD 11:12
PROVIDERS: ATTEND Nurse Practitioner Family
DX: R79.1 Abnormal coagulation profile (principal); R60.0 Localized edema; M79.604 Pain in right leg

== ENCOUNTER → 2022-10-22 | Outpatient (CLI) | payer MEDICARE, OTHER | LOC: WOUNDCARE 09:05 | PROVIDERS: ATTEND Family Medicine | DX: L97.512 Non-pressure chronic ulcer of other part of right foot with fat layer exposed (principal); B35.3 Tinea pedis; T45.1X5A Adverse effect of antineoplastic and immunosuppressive drugs, initial encounter; I89.0 Lymphedema, not elsewhere classified; E66.09 Other obesity due to excess calories; Z68.30 Body mass index [BMI] 30.0-30.9, adult; L24.A0 Irritant contact dermatitis due to friction or contact with body fluids, unspecified | CPT/HCPCS: 11042; A6197; G0463 ==

== ENCOUNTER → 2022-10-29 | Outpatient (CLI) | payer MEDICARE, OTHER | LOC: WOUNDCARE 09:46 | PROVIDERS: ATTEND Family Medicine | DX: L97.512 Non-pressure chronic ulcer of other part of right foot with fat layer exposed (principal); B35.3 Tinea pedis; T45.1X5A Adverse effect of antineoplastic and immunosuppressive drugs, initial encounter; I89.0 Lymphedema, not elsewhere classified; E66.09 Other obesity due to excess calories; Z68.30 Body mass index [BMI] 30.0-30.9, adult; L24.A0 Irritant contact dermatitis due to friction or contact with body fluids, unspecified; I96 Gangrene, not elsewhere classified | CPT/HCPCS: 11042; G0463 ==

== ENCOUNTER → 2022-11-05 | Outpatient (CLI) | payer MEDICARE, OTHER ==
--- NOTE | 2022-11-05 19:06 | Diagnostic Imaging Report ---
INDICATION: Nonhealing wound. Three views of the right foot performed. FINDINGS: No bony destruction. No soft tissue gas. No opaque foreign body. No abnormal periosteal reaction or chronic degenerative changes without fracture. IMPRESSION: No acute bony abnormality, gas or opaque foreign body. Dictated by: Dictated on workstation # [id number]
== END ==
LOC: WOUNDCARE 09:54
PROVIDERS: ATTEND Family Medicine
DX: I96 Gangrene, not elsewhere classified (principal); L97.512 Non-pressure chronic ulcer of other part of right foot with fat layer exposed; B35.3 Tinea pedis; T45.1X5A Adverse effect of antineoplastic and immunosuppressive drugs, initial encounter; I89.0 Lymphedema, not elsewhere classified; E66.09 Other obesity due to excess calories; L24.A9 Irritant contact dermatitis due friction or contact with other specified body fluids; Z68.30 Body mass index [BMI] 30.0-30.9, adult
CPT/HCPCS: 11042; 73630; 84134; 85652; 86141; G0463; 36415

== ENCOUNTER → 2022-11-13 | Outpatient (CLI) | payer MEDICARE, OTHER | LOC: WOUNDCARE 08:44 | PROVIDERS: ATTEND Family Medicine | DX: B35.3 Tinea pedis (principal); T45.1X5A Adverse effect of antineoplastic and immunosuppressive drugs, initial encounter; I89.0 Lymphedema, not elsewhere classified; E66.01 Morbid (severe) obesity due to excess calories; Z68.30 Body mass index [BMI] 30.0-30.9, adult; L24.A0 Irritant contact dermatitis due to friction or contact with body fluids, unspecified; L97.512 Non-pressure chronic ulcer of other part of right foot with fat layer exposed | CPT/HCPCS: 99213 ==

== ENCOUNTER → 2022-11-26 | Outpatient (CLI) | payer MEDICARE, OTHER | LOC: WOUNDCARE 08:51 | PROVIDERS: ATTEND Family Medicine | DX: I89.0 Lymphedema, not elsewhere classified (principal); T45.1X5A Adverse effect of antineoplastic and immunosuppressive drugs, initial encounter; L97.512 Non-pressure chronic ulcer of other part of right foot with fat layer exposed; E66.09 Other obesity due to excess calories; Z68.30 Body mass index [BMI] 30.0-30.9, adult | CPT/HCPCS: 99212 ==